=== PATIENT | female | born 1955 | race Caucasian/White ===

== ENCOUNTER 2020-02-03 13:28 | Outpatient (CLI) | payer OTHER, SELFPAY ==
--- NOTE | ~2020-02-03 | MR_ITS ---
EXAMINATION: MR knee RT wo con DATE: 02/03/2020 14:43 INDICATION: Anterior and medial right knee pain. Derangement of the medial meniscus. TECHNIQUE: Magnetic resonance imaging (MRI) of the right knee was performed without intravenous contr ast. Sequences included coronal PD-weighted FSE, coronal PD-weighted FS FSE, sagittal T2-weighted FS E, sagittal PD-weighted FS FSE and axial PD weighted fat saturated FSE. COMPARISON: None. FINDINGS: Medial compartment: There is a full-thickness parrot beak configuration vertical tear extending from the inner free edge of the body of the medial meniscus directly posterior to the periphery of the medial side of the post erior horn. Approximately 5-6 mm region of blisterlike delamination at the bone chondral interface al dorinda the medial margin of the posterior weightbearing medial femoral condyle. There is partial thickne ss chondral ulceration and fissuring involving up to 50% the cartilage thickness and without degenera tive subchondral changes at the anterior weightbearing medial femoral condyle. Lateral compartment: Lateral meniscus is normal. Articular cartilage is normal. Patellofemoral compartment: Deep chondral fissuring extending a band transversely across the lateral patellar facet. Additional d eep chondral fissuring at the medial patellar facet. Partial-thickness cartilage loss with chondral s urface irregularity along the patellar apical ridge. Trochlear cartilage appears relatively preserved . Ligaments and tendons: Anterior and posterior cruciate ligaments are normal. The medial collateral ligament and fibular phan ateral ligament complex are normal. The extensor mechanism is normal. The visualized medial and later al hamstring tendons as well as the iliotibial band are normal. Fluid: Small knee joint effusion. No loose osteochondral bodies identified. Osseous/other: Normal marrow signal. No fracture or abnormal marrow replacing process. IMPRESSION: 1. Full-thickness parrot beak configuration vertical tear extending anterior to posteriorly at the ju nction of the body and posterior horn of the medial meniscus. 2. Mild osteoarthritis with moderate grade chondromalacia at the medial and patellofemoral compartmen ts. Reviewed, dictated and finalized at location B. IMPRESSION: 1. Full-thickness parrot beak configuration vertical tear extending anterior to posteriorly at the junction of the body and posterior horn of the medial menis cus. 2. Mild osteoarthritis with moderate grade chondromalacia at the medial and pat ellofemoral compartments.
== END 2020-02-03 13:29 | disposition home or self-care (01) ==
PROVIDERS: PCP Internal Medicine; Visit Provider Orthopaedic Surgery
DX: M23.203 Derangement of unspecified medial meniscus due to old tear or injury, right knee (principal); M17.11 Unilateral primary osteoarthritis, right knee
CPT/HCPCS: 73721

== ENCOUNTER 2020-03-01 02:28 | Outpatient (CLI) | payer OTHER, SELFPAY ==
[2020-03-01 18:24] LABS: SARS-CoV-2 RNA PCR Negative
== END 2020-03-01 02:29 | disposition home or self-care (01) ==
LOC: ANHCOVIDDT 02:28
PROVIDERS: PCP Internal Medicine; Visit Provider Orthopaedic Surgery
DX: Z01.812 Encounter for preprocedural laboratory examination (principal); Z20.828 Contact with and (suspected) exposure to other viral communicable diseases
CPT/HCPCS: 87635; C9803; U0003

== ENCOUNTER 2020-03-03 00:41 | Day surgery (SDC) | payer OTHER, SELFPAY ==
[2020-02-18 12:53] VITALS: BMI 24.3
[2020-03-03] VITALS (7 sets, daily range): BP systolic 118–137; BP diastolic 68–80; PULSE 76–95; RESP 10–20; TEMP 36.1–36.4; O2SAT 99–100
[2020-03-03] MEDS: LACTATED RINGERS 1,000 ML 30 ML IV CONT ×2 (06:30→08:15)
[2020-03-03] MEDS: ACETAMINOPHEN 500 MG TABLET 1000 MG PO (06:31)
[2020-03-03] MEDS: KETOROLAC 15 MG/ML VIAL (*BKC) IV PUSH (06:36)
--- NOTE | 2020-03-03 07:10 | WPDANESEPPF ---
Anes - Initial Pre Proc Eval Procedure: Operation Date: 03/03/20 07:30 Proposed Procedures p Arthroscopic Partial Medial Meniscectomy Right Knee, Proceed As Indicated - Zach Freeman MD Date/Time: 03/03/20 07:10 Surgeon: Zach Freeman MD Pre Op Diagnosis: medial meniscal tear right knee Patient Data Age: 64 Gender: F Height: 5 ft 5 in Weight: 65.3 kg Last Vital Signs Temp 36.4 C L 03/03/20 06:33 Pulse 95 03/03/20 06:33 Resp 20 03/03/20 06:33 BP 137/71 03/03/20 06:33 Pulse Ox 100 03/03/20 06:33 Allergies Allergy/AdvReac Type Severity Reaction Status Date / Time Penicillins Allergy Unknown Hives Verified 03/03/20 06:43 Home Medications Medication Instructions Recorded Confirmed Type diazepam 2 mg tablet 2 mg PO TID PRN 01/27/20 02/18/20 History Vitamin D3 1 tablet PO DAILY 02/18/20 03/03/20 History naproxen sodium [Aleve] 220 mg PO DAILY PRN 02/18/20 03/03/20 History turmeric 1 cap PO DAILY 02/18/20 03/03/20 History vitamin B complex 1 tablet PO DAILY 02/18/20 03/03/20 History Patient hx anesthesia problems: none Family hx anesthesia problems: none PMFSH Past Medical History Medical History 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 Surgical History Surgical History (Updated 03/03/20 @ 07:10 by Mario Conti MD) H/O: hysterectomy Family History Family History Sibling Hypertension Malignant neoplasm of prostate Mother Hypertension Family history of arthritis Father Family history of pancreatic cancer Social History Social History Smoking status: Never smoker Spiritual care concerns: No Anes - Eval Final PreProcedure Day of Procedure 03/03/20 07:10 Patient weight: normal Heart: regular rate and rhythm Lungs: clear to auscultation Airway: Mallampati scale class II Neurological: alert and oriented Last oral intake: >/= 8 hours ASA classification: II Emergent: no Anesthetic plan: proceed Anesthesia type and monitoring: general LMA and standard monitoring Informed Consent: The patient's anesthetic plan and its attendant risks and benefits were discussed with the patient/family/POA. Questions were solicited and answers provided to the satisfaction of the patient/family/POA.
--- NOTE | 2020-03-03 07:11 | WPDHPUPDATE1 ---
History and Physical Update Update Date/Time: 03/03/20 07:11 History and Physical has been reviewed, including an updated exam of the patient. There are NO changes in the patient's condition. Risks, benefits, and alternatives have been discussed and questions answered. Patient agrees to proceed with procedure.
[2020-03-03] MEDS: CLINDAMYCIN 900 MG/NS 50 ML 900 MG/50 ML PIGGYBACK 50 MG IVPB (07:23)
[2020-03-03] MEDS: BUPIVACAINE/EPINEPHRINE 0.5% 10 ML VIAL 20 ML INFILTRATE (07:39)
--- NOTE | 2020-03-03 08:14 | PM.PROC ---
Procedure Note - Detailed Date of procedure: 03/03/20 Pre-op diagnosis: medial meniscal tear right knee Medial meniscus tear. Post-op diagnosis: same Procedure performed: Arthroscopic partial medial meniscectomy. Description of procedure: Grade 2/3 chondromalacia medial femur and patella. Grade 2/3 trochlea. Grade 1 medial tibia. ACL and lateral compartment normal. Anesthesia: GETA Surgeon: Zach Freeman MD Estimated blood loss (mL): 5 Complications: None Condition: stable Findings: Brief History: The patient complained of knee pain, swelling and mechanical symptoms despite conservative treatment. MRI confirmed the presence of a meniscus tear. Procedure Details: The patient was identified and the surgical site confirmed and signed in the preoperative holding area. Antibiotics were started per protocol. She was brought to the operative room and transferred to the OR table. A general anesthetic was administered. Supine position with the operative lower extremity position in the leg rocha after placement of a well padded tourniquet. The leg support was lowered and the contralateral limb was supported with a soft bolster. The knee was prepped and draped in the usual sterile fashion. A time-out was performed. The portal sites were marked and infiltrated with 0.5% Marcaine 20 mL. The limb was exsanguinated and the tourniquet inflated to 300 mL Hg. Standard inferolateral and inferomedial portals were established. Inflow was obtained with the saline pump. The camera was introduced. Diagnostic inspection of the joint was accomplished. The meniscus was debrided with the arthroscopic shaver, punches, and radiofrequency probe until stable. The arthroscopic instruments were removed. The tourniquet released and wounds closed with subcutaneous 3-0 Monocryl absorbable suture. Steri strips and a sterile dressing were applied. A light elastic wrap was placed. The patient was extubated and brought to the recovery room in stable condition.
--- NOTE | 2020-03-03 10:03 | SUR.PHASEII ---
1000; PT AWAKE AND ALERT. STATES PAIN MILD AT 2/10. DOES NOT WANT ANY PAIN MEDICINE AT THIS TIME. STATES READY TO GO HOME. MEETS DISCHARGE CRITERIA.
== END 2020-03-03 10:03 | disposition home or self-care (01) ==
PROVIDERS: PCP Internal Medicine; Visit Provider Orthopaedic Surgery
PROC: (CPT 29870; principal; 2020-03-03 07:30)
DX: S83.241A Other tear of medial meniscus, current injury, right knee, initial encounter (principal); X50.0XXA Overexertion from strenuous movement or load, initial encounter; M94.261 Chondromalacia, right knee
CPT/HCPCS: 29881; A9270; J1100; J1885; J2405; J2704; J3010; J7120

== ENCOUNTER 2020-03-27 15:30 | Outpatient (RCR) | payer OTHER, SELFPAY ==
--- NOTE | 2020-03-06 13:36 | PTOPEVAL ---
PHYSICAL THERAPY EVALUATION AND PLAN OF CARE 03-06-2020 Thank you for referring Barrera Marcelino to [facility], s/p R knee medical meniscectomy is scheduled to be seen for therapy? 2 x/week for 3 weeks. If the goals are achieved prior to 3 weeks, she may be discharged. Please review, sign, date and return this plan of care SYMONE. I agree with and certify that the following plan of care is medically necessary. Referring Physician Date Attending Provider: Zach Freeman MD *PT Outpatient Evaluation Document 03/06/20 12:30 LAYLA (Rec: 03/06/20 13:30 LAYLA [id number]) Outpatient Past Medical History Past Medical History Source of Past Medical History Patient,Recalled from Previous Visit, Confirmed with Patient /Family Neurological History Hx Neurological Disorders No Significant History Cardiovascular History Hx Cardiac Disorders No Significant History Respiratory History Hx Respiratory Disorders No Significant History Gastrointestinal History Hx Gastrointestinal Disorders No Significant History Genitourinary History Hx Genitourinary Disorders No Significant History Musculoskeletal History Hx Arthritis Yes: neck;hands stiff; Hx Other Musculoskeletal Disorders Yes: MENISCUS TEAR RT KNEE; L shoulder pain/non surgical Hematological History Hx Hematological Disorders No Significant History Endocrine History Hx Endocrine Disorders No Significant History HEENT History Hx HEENT Disorders No Significant History Integumentary History Hx Skin Disorders No Significant History Reproductive History Hx Abnormal Uterine Bleeding Yes Hx Hysterectomy Yes: 2007 Psychosocial History Hx Psychiatric Disorders No Significant History Pain History Has Past Pain Affected Your Daily Life Yes: RT KNEE Anesthesia History Hx Anesthesia Reactions No Significant History Evaluation Information Problem Diagnosis s/p R knee medial menisectomy Onset 03-03-2020 Subjective Information since surgery, resting, not Query Text:As Reported By Patient/ using assistive device; took Family off dressing last PM, took shower this AM; fron dr josafat portillo set; Prior Level of Function Activity Level (Last 3 Months) 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
--- NOTE | 2020-03-27 16:01 | PTOPEVAL ---
PHYSICAL THERAPY DISCHARGE 03-27-2020 Refer to the clinical summary below. The goals were achieved, therefore Mrs. Marcelino will be discharged from PT at this time. Thank you for referring Barrera Marcelino to [facility].? Please review, sign, date and return this discharge SYMONE. I agree with and certify that the following plan of care is medically necessary. Referring Physician Date Attending Provider: Zach Freeman MD *PT Outpatient Discharge Document 03/27/20 15:32 LAYLA (Rec: 03/27/20 15:55 LAYLA [id number]) Subjective Information Barrera reports: knee is doing Query Text:As Reported By Patient/ great; no longer limp, Family walking about 30 minutes; up and around with home tasks about 2 hours and not hurt, but take it slower than used to; pleased with the therapy, ready to be completed with therapy; doing exercises at home; Pain Assessment Timing of Pain Assessment Timing of Pain Assessment Assessment Pain Scale Pain Scale Used Numeric (1 - 10) Self Report Pain Assessment Right Knee(s) Reported Pain Level 0 Pain Description Soreness Pain Frequency Acute Lowest Pain Intensity 0 Greatest Pain Intensity 1 Pain Score Pain Score 0: Self Report Interventions Used Interventions Used By Clinicians Exercise Other Alleviating Interventions have not been using ice or taking any pain meds; reinforce ice PRN w/activity Lower Extremity Range of Motion General Lower Extremity Range of Motion Gross Lower Extremity Range of Motion sitting active R knee ROM 0- Comments 120',without pain increase Lower Extremity Muscle Strength Testing General Lower Extremity Strength Gross Lower Extremity Strength with 3# ankle wt: R LE: SLR x 28 reps; side lying hip abduction x 23 reps and hip adduction x 20 reps; prone knee flexion x 20 reps; single leg standing x 30 seconds with good stability; Extremity Circumference Assessment Circumference Assessment Location Right Body Part Knee Circumference Comments superior to patella 38 cm/ mid patella 36 cm/ inferior to patella 33 cm; Gait Assessment Gait Assessment Ambulation Assistive Devices None Ambulation Distance 150 Query Text:(Feet) Ambulation Pravin
== END 2020-03-28 10:35 | disposition home or self-care (01) ==
LOC: ANHPT 15:30
PROVIDERS: PCP Internal Medicine; Visit Provider Orthopaedic Surgery
DX: Z48.89 Encounter for other specified surgical aftercare (principal); M23.203 Derangement of unspecified medial meniscus due to old tear or injury, right knee
CPT/HCPCS: 97110; 97161

== ENCOUNTER 2020-04-20 06:44 | Outpatient (CLI) | payer OTHER, SELFPAY ==
[2020-04-20 07:27] LABS: Basophils Absolute Auto 0.1 K/mm3 (0.0-0.1); Eosinophils Absolute Auto 0.1 K/mm3 (0-0.3); Eosinophils Percent Auto 2.2 % (0-4.4); Hematocrit 42.8 % (37.0-47.0); Immature Granulocyte Absolute 0.02 K/mm3 (0.00-0.031); Immature Granulocyte Percent A 0.4 % (0-0.5); Lymphocytes Percent Auto 31.9 % (18.3-44.2); Mean Corpuscular HGB Conc 32.7 g/dl (32-36); Mean Corpuscular Hemoglobin 29.8 pg (26-34); Mean Corpuscular Volume 91.1 fl (80-100); Mean Platelet Volume 8.7 fl (7.4-10.4); Monocytes Absolute Auto 0.3 K/mm3 (0.1-0.6); Monocytes Percent Auto 6.6 % (2.6-8.5); Neutrophils Absolute Auto 2.9 K/mm3 (1.3-6.7); Neutrophils Percent Auto 57.9 % (45.5-73.1); Platelet Count Result 291 k/mm3 (150-375); Red Cell Distribution Width 12.2 % (11.5-14.5)
[2020-04-20 07:39] LABS: Alanine Aminotransferase 47 U/L (4-35); Albumin Level 4.4 g/dL (3.5-5.1); Alkaline Phosphatase 100 U/L (38-126); Anion Gap 6 mmol/L (8-16); Aspartate Amino Transferase 45 U/L (14-36); Bilirubin,Total 0.5 mg/dL (0.2-1.3); Blood Urea Nitrogen 16 mg/dL (7-17); Calcium 9.4 mg/dL (8.4-10.2); Carbon Dioxide 33 mmol/L (22-30); Chloride 102 mmol/L (98-107); Cholesterol 218 mg/dL (0-200); Estimated Glomerular Filt Rate > 60; Glucose 106 mg/dL (65-105); HDL Direct 85 mg/dL; Potassium 4.4 mmol/L (3.4-5.0); Sodium 141 mmol/L (137-145); Triglycerides 52 mg/dL (<150)
[2020-04-20 07:41] LABS: Add Urine Microscopic? YES; Appearance Urine Clear (Clear); Bacteria Urine Trace /hpf; Bilirubin Urine Negative (Negative); Blood Urine Negative (Negative); Color Urine Straw (Yellow); Glucose Urine UA Negative (Negative); Ketones Urine Negative (Negative); Leukocyte Esterase Ur Trace LEU/UL (NEGATIVE); Mucus Urine Rare /lpf; Nitrate Urine Negative (Negative); Protein Urine Negative (Negative); RBC Urine 0-2 /hpf (0-2); Specific Grav Ur 1.011 (1.001-1.035); Squamous Epithelial Cell Urine Rare /hpf (Few); Urobilinogen Urine Negative mg/dL (<2.0); WBC Urine 0-3 /hpf (0-3)
[2020-04-20 07:49] LABS: LDL Cholesterol Direct 100 mg/dL
== END 2020-04-20 06:45 | disposition home or self-care (01) ==
LOC: ANHLAB 06:47
PROVIDERS: PCP Internal Medicine; Visit Provider Internal Medicine
DX: Z00.00 Encounter for general adult medical examination without abnormal findings (principal)
CPT/HCPCS: 36415; 80053; 80061; 81001; 85025

== ENCOUNTER 2020-05-12 09:02 | Outpatient (CLI) | payer OTHER, SELFPAY ==
[2020-05-12 10:17] LABS: Free T4 Free Thyroxine 0.93 ng/mL (0.78-2.19)
== END 2020-05-12 09:03 | disposition home or self-care (01) ==
PROVIDERS: PCP Internal Medicine; Visit Provider Internal Medicine
DX: R74.8 Abnormal levels of other serum enzymes (principal); I49.9 Cardiac arrhythmia, unspecified
CPT/HCPCS: 36415; 84439; 84443

== ENCOUNTER 2020-05-18 07:48 | Outpatient (CLI) | payer OTHER, SELFPAY ==
--- NOTE | ~2020-05-18 | US_ITS ---
EXAMINATION: US right upper quadrant DATE: 05/18/2020 08:20 INDICATION: Abnormal liver function tests. TECHNIQUE: Multiple grayscale and Doppler ultrasound images of the abdomen were obtained. COMPARISON: CT abdomen and pelvis 04/10/2015 FINDINGS: The visualized portions of the head, body, and tail of the pancreas are normal. The liver i s normal without focal lesion. There is normal flow in main portal vein. The gallbladder is normal in size. No gallstones or gallbladder wall thickening. There was no sonographic Del Toro sign. The common duct is normal and measures 3 mm. IMPRESSION: 1. Normal right upper quadrant ultrasound. Reviewed, dictated and finalized at location A. AL RETARDATION AIDE
== END 2020-05-18 07:49 | disposition home or self-care (01) ==
PROVIDERS: PCP Internal Medicine; Visit Provider Internal Medicine
DX: R74.8 Abnormal levels of other serum enzymes (principal)
CPT/HCPCS: 76705

== ENCOUNTER 2021-05-03 12:30 | Outpatient (RCR) | payer OTHER, SELFPAY ==
--- NOTE | 2021-03-29 09:27 | PTOPEVAL ---
PHYSICAL THERAPY EVALUATION AND PLAN OF CARE 03-29-21 Thank you for referring Barrera Marcelino to [facility] for the diagnosis of R shoulder arthritis. She is scheduled to be seen for therapy? 1-2 x/week for 5 weeks. Please review, sign, date and return this plan of care SYMONE. I agree with and certify that the following plan of care is medically necessary. Referring Physician Date Attending Provider: Zach Freeman MD PT Outpatient Evaluation Document 03/29/21 08:30 LAYLA (Rec: 03/29/21 09:22 LAYLA [id number]) Source of Past Medical History Recalled from Previous Visit, Confirmed with Patient/Family Neurological History Hx Neurological Disorders No Significant History Cardiovascular History Hx Cardiac Disorders No Significant History Respiratory History Hx Respiratory Disorders No Significant History Gastrointestinal History Hx Gastrointestinal Disorders No Significant History Genitourinary History Hx Genitourinary Disorders No Significant History Musculoskeletal History Hx Arthritis Yes: neck;hands stiff; Hx Orthopedic Surgery Yes: R knee arthroscopy Hx Other Musculoskeletal Disorders Yes: MENISCUS TEAR RT KNEE; L shoulder pain/non surgical Hematological History Hx Hematological Disorders No Significant History Endocrine History Hx Endocrine Disorders No Significant History HEENT History Hx HEENT Disorders No Significant History Integumentary History Hx Skin Disorders No Significant History Reproductive History Hx Abnormal Uterine Bleeding Yes Psychosocial History Hx Psychiatric Disorders No Significant History Anesthesia History Hx Anesthesia Reactions No Significant History Evaluation Information Problem Diagnosis R shoulder OA Onset December 2020 Subjective Information gradual increase in shoulder Query Text:As Reported By Patient/ pain, to where issues sleeping Family through night and could not lie on R shoulder; In November, did alot of painting Diagnostic Tests X-Rays For This Problem Yes: OA of shoulder Previous Treatments Previous Treatments For This Problem not for R shoulder Prior Level of Function Activity Level (Last 3 Months) 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
--- NOTE | 2021-05-03 13:07 | PTOPEVAL ---
PHYSICAL THERAPY DISCHARGE 05-03-21 Refer to the clinical summary below, for her status today, compared to the initial evaluation. Discharge PT services. The goals were partially achieved. Thank you for referring Barrera Marcelino to [facility].? Please review, sign, date and return this Discharge report SYMONE. I agree with and certify that the following plan of care is medically necessary. Referring Physician Date Attending Provider: Zach Freeman MD Document 05/03/21 12:30 LAYLA (Rec: 05/03/21 13:07 LAYLA [id number]) Assessment Status Discharge Subjective Information Barrera reports: shoulder is Query Text:As Reported By Patient/ better, sleeping better; can Family lie on her R side about 10 minutes; doing exercises ok for shoulder; at work yesterday, shoulder did not bother me until the end of the day; Pain Assessment Timing of Pain Assessment Timing of Pain Assessment Assessment Pain Scale Pain Scale Used Numeric (1 - 10) Self Report Pain Assessment Right Shoulder(s) Reported Pain Level 1 Pain Description Aching Radicular Pain Location anterior shoulder ache Pain Frequency Chronic,Intermittent Other Pain Description catches in shoulder when move arm- lift up and then when lower arm down Lowest Pain Intensity 0 Greatest Pain Intensity 5 Pain Aggravating Factors Exercise/Activity Other Pain Aggravating Factors can lie on R side about 10 min ; with sleeping awaken 0-2x/ night Pain Behaviors None Pain Score Pain Score 1: Self Report Additional Pain Score Comments sometimes wake up from sleeping with pain down arm into R hand, kind of like a throb; Interventions Used Interventions Used By Clinicians Education Pain Relief Interventions Used By Inactivity/Rest,Medication Patient Other Alleviating Interventions sometimes take tylenol at night for sleeping; Upper Extremity Range of Motion General Upper Extremity Range of Motion Gross Upper Extremity Range of Motion with active R shoulder ROM: Comments reports stretching and pulling with end range of flexion and IR, but no pain Upper Extremity Muscle Strength Testing General Upper Extremity Strength Gross Upper Extremity Strength Comments functional strength testing: R shoulder: flexion 4# hand
== END 2021-06-12 08:50 | disposition home or self-care (01) ==
LOC: ANHPT 12:30
PROVIDERS: PCP Internal Medicine; Visit Provider Orthopaedic Surgery
DX: M19.011 Primary osteoarthritis, right shoulder (principal)
CPT/HCPCS: 97014; 97110; 97140; 97161; G0283

== ENCOUNTER 2021-05-04 07:14 | Outpatient (CLI) | payer OTHER, SELFPAY ==
[2021-05-04 07:51] LABS: Basophils Percent Auto 0.9 % (0.2-1.2); Eosinophils Absolute Auto 0.1 K/mm3 (0-0.3); Eosinophils Percent Auto 1.7 % (0-4.4); Hematocrit 41.6 % (37.0-47.0); Hemoglobin 13.8 g/dL (12.0-15.0); Immature Granulocyte Absolute 0.02 K/mm3 (0.00-0.031); Immature Granulocyte Percent A 0.4 % (0-0.5); Lymphocytes Absolute Auto 1.52 K/mm3 (0.9-3.2); Lymphocytes Percent Auto 32.5 % (18.3-44.2); Mean Corpuscular HGB Conc 33.2 g/dl (32-36); Mean Corpuscular Hemoglobin 31.1 pg (26-34); Mean Corpuscular Volume 93.7 fl (80-100); Mean Platelet Volume 8.9 fl (7.4-10.4); Monocytes Absolute Auto 0.4 K/mm3 (0.1-0.6); Monocytes Percent Auto 7.9 % (2.6-8.5); Neutrophils Absolute Auto 2.7 K/mm3 (1.3-6.7); Neutrophils Percent Auto 56.6 % (45.5-73.1); Platelet Count Result 226 k/mm3 (150-375); Red Blood Count 4.44 M/mm3 (4.2-5.4); Red Cell Distribution Width 12.2 % (11.5-14.5); White Blood Count 4.7 K/mm3 (4.5-10.0)
[2021-05-04 08:14] LABS: LDL Cholesterol Direct 103 mg/dL
[2021-05-04 08:15] LABS: Alanine Aminotransferase 36 U/L (4-35); Albumin Level 4.6 g/dL (3.5-5.1); Alkaline Phosphatase 95 U/L (38-126); Anion Gap 9 mmol/L (8-16); Aspartate Amino Transferase 33 U/L (14-36); Bilirubin,Total 0.4 mg/dL (0.2-1.3); Blood Urea Nitrogen 19 mg/dL (7-17); Calcium 9.5 mg/dL (8.4-10.2); Carbon Dioxide 26 mmol/L (22-30); Chloride 101 mmol/L (98-107); Cholesterol 225 mg/dL (0-200); Estimated Glomerular Filt Rate > 60; Glucose 102 mg/dL (65-110); HDL Direct 83 mg/dL; Potassium 4.3 mmol/L (3.4-5.0); Sodium 136 mmol/L (137-145); Triglycerides 55 mg/dL (<150)
[2021-05-04 08:26] LABS: Add Urine Microscopic? NO; Appearance Urine Clear (Clear); Bilirubin Urine Negative (Negative); Blood Urine Negative (Negative); Color Urine Yellow (Yellow); Glucose Urine UA Negative (Negative); Ketones Urine Negative (Negative); Leukocyte Esterase Ur Negative LEU/UL (Negative); Nitrate Urine Negative (Negative); Protein Urine Negative (Negative); Specific Grav Ur 1.017 (1.001-1.035); Urobilinogen Urine Negative mg/dL (<2.0)
[2021-05-04 10:41] LABS: Vitamin D 25 Hydroxy 84.8 ng/mL
== END 2021-05-04 07:15 | disposition home or self-care (01) ==
LOC: ANHLAB 07:17
PROVIDERS: PCP Internal Medicine; Visit Provider Internal Medicine
DX: Z00.00 Encounter for general adult medical examination without abnormal findings (principal)
CPT/HCPCS: 36415; 80053; 80061; 81003; 82306; 84443; 85025

== ENCOUNTER 2022-05-07 06:57 | Outpatient (CLI) | payer OTHER, SELFPAY ==
[2022-05-07 07:21] LABS: Basophils Absolute Auto 0.1 K/mm3 (0.0-0.1); Basophils Percent Auto 0.9 % (0.2-1.2); Eosinophils Absolute Auto 0.1 K/mm3 (0-0.3); Eosinophils Percent Auto 1.1 % (0-4.4); Hematocrit 39.6 % (37.0-47.0); Hemoglobin 13.5 g/dL (12.0-15.0); Immature Granulocyte Absolute 0.01 K/mm3 (0.00-0.031); Immature Granulocyte Percent A 0.2 % (0-0.5); Lymphocytes Absolute Auto 1.58 K/mm3 (0.9-3.2); Lymphocytes Percent Auto 28.7 % (18.3-44.2); Mean Corpuscular HGB Conc 34.1 g/dl (32-36); Mean Corpuscular Volume 90.8 fl (80-100); Mean Platelet Volume 8.7 fl (7.4-10.4); Monocytes Absolute Auto 0.3 K/mm3 (0.1-0.6); Monocytes Percent Auto 5.3 % (2.6-8.5); Neutrophils Absolute Auto 3.5 K/mm3 (1.3-6.7); Neutrophils Percent Auto 63.8 % (45.5-73.1); Platelet Count Result 259 k/mm3 (150-375); Red Blood Count 4.36 M/mm3 (4.2-5.4); Red Cell Distribution Width 11.9 % (11.5-14.5); White Blood Count 5.5 K/mm3 (4.5-10.0)
[2022-05-07 07:32] LABS: Alanine Aminotransferase 32 U/L (6-35); Albumin Level 4.6 g/dL (3.5-5.1); Alkaline Phosphatase 84 U/L (38-126); Anion Gap 7 mmol/L (8-16); Aspartate Amino Transferase 39 U/L (14-36); Bilirubin,Total 0.4 mg/dL (0.2-1.3); Blood Urea Nitrogen 16 mg/dL (7-17); Calcium 9.4 mg/dL (8.4-10.2); Carbon Dioxide 29 mmol/L (22-30); Chloride 102 mmol/L (98-107); Cholesterol 218 mg/dL (0-200); Estimated Glomerular Filt Rate > 60; Glucose 103 mg/dL (65-110); HDL Direct 72 mg/dL; Potassium 4.5 mmol/L (3.4-5.0); Sodium 138 mmol/L (137-145); Triglycerides 68 mg/dL (<150)
[2022-05-07 07:37] LABS: Hemoglobin A1C 5.3 % (<5.7)
[2022-05-07 07:43] LABS: LDL Cholesterol Direct 95 mg/dL
[2022-05-07 08:20] LABS: HIV 1/2 Ab P24 Ag Result Negative (Negative); Hepatitis C Virus Antibody Negative (Negative)
== END 2022-05-07 06:58 | disposition home or self-care (01) ==
DX: Z00.00 Encounter for general adult medical examination without abnormal findings (principal); E78.2 Mixed hyperlipidemia; Z11.59 Encounter for screening for other viral diseases; Z11.4 Encounter for screening for human immunodeficiency virus [HIV]
CPT/HCPCS: 36415; 80053; 80061; 83036; 84443; 85025; 86703; 86803; G0432

== ENCOUNTER 2022-09-24 14:30 | Outpatient (RCR) | payer MEDICARE, SELFPAY ==
--- NOTE | 2022-08-26 09:54 | PTOPEVAL1 ---
Assessment and note entered by Analia Merritt, PT Evaluation Information Assessment Status Evaluation Diagnosis Thoracic, back pain Onset May 2022 Subjective Information no trauma or injury to trunk--had in May, eased then returned; x ray--reports degenerative disc disease; Reported Pain Level Pain Score Self Report Additional Pain Score Comments pain range in past week 1- 6/10; L lateral trunk, lower rib, anterior, lateral and posterior; ache- nagging most of time, dull, gripping like pain, sometimes sharp twinge; increase pain with lie on L side, awaken from sleep 1x/night due to pain; decrease pain with heat, muscle arthritis rubs; tylenol, motrin; does not seem to change with position, except lying on her side; Assessment PT Clinical Summary Carolyn Day has the diagnosis of thoracic pain, without an injury or trauma; onset in May. Pain increases with lying on her L side and awakens her from sleep 1x/night. Last week, she had a R breast lumpectomy due to cancer and has an upcoming appt with the dr about radiation and/ or chemo options for treatment. With the evaluation, her trunk and hip ROM in standing and on mat were equal R/L and did not elicit pain, EXCEPT: standing side bend of trunk to L was slightly less than R and with standing trunk rotation to L felt the pain on the L trunk; with palpation, there was tenderness reported in supine, over L lateral-anterior trunk. There are moderate spasms over R and L thoracic paraspinals Skilled PT services are indicated for modalities to decrease pain and spasms, therapeutic exercises to stretch and strengthen her trunk and education for home exercises and posture. Plan of Care Interventions Hot Pack/Cold Pack,Manual Therapy,Neuro Re- education,Patient/Caregiver Education,Therapeutic Activities,Therapeutic Exercise,Other Other Interventions taping, instrument assisted soft tissue massage, cupping PT Services Indicated Yes Treatment Frequency and 2x/wk for 4 weeks Duration These treatments will address the objective and functional deficits as defined above. The patient will be advanced safely and appropriately in order for the patient to progress towards his/her prior level of function. Additional exercises antony
--- NOTE | 2022-09-24 15:03 | PTOPDC ---
Assessment and note entered by Analia Merritt, PT Evaluation Information Assessment Status Evaluation Diagnosis Thoracic, back pain Onset May 2022 Subjective Information Barrera reports: is doing better, can lie on her L side without any problems; am doing the stretches and they help; Reported Pain Level Pain Score Self Report Additional Pain Score Comments pain range in the past week 0-2/10; little ache and sore, decreased with stretching; increase -- cannot identify anything that increases it, maybe from sleeping on her side and when wake up have some pain--? sleep in one position too long or her mattress; Assessment PT Clinical Summary Barrera has received 7 PT sessions. Compared to the initial eval she has improved in all areas: pain rating from 1-6/10 to 0-2/10; reports she can tolerating lying on her L side without pain and is not awakening her from sleeping; standing trunk motions do not cause her any pain; Education completed for home exercises. The goals were achieved. Discharge PT services, and continue with HEP. Plan of Care PT Services Indicated No
== END 2022-09-25 11:49 | disposition home or self-care (01) ==
LOC: ANHPT 14:30
DX: M54.6 Pain in thoracic spine (principal)
CPT/HCPCS: 97110; 97112; 97140; 97161; 97530

== ENCOUNTER 2023-09-25 07:28 | Day surgery (SDC) | payer MEDICARE, SELFPAY ==
[2023-09-05 13:41] VITALS: BMI 24.7
[2023-09-25 08:05] VITALS: BP 132/88; PULSE 92; RESP 20; TEMP 36.9; O2SAT 100; BMI 24.6
[2023-09-25] MEDS: LACTATED RINGERS 1,000 ML 150 ML IV CONT (08:11)
--- NOTE | 2023-09-25 08:31 | PM.HPGS ---
History of Present Illness History of Present Illness Consent: Risks, benefits, and alternatives have been discussed and questions answered. Patient agrees to proceed with procedure. Chief complaint: Personal history of colonic polyps Narrative: Barrera Marcelino is a 68 year old female presents for screening colonoscopy. Vital signs are normal. Patient denies abdominal pain. She has had no bleeding. Previous colonoscopy in 2018 revealed a benign adenoma. Patient returns today for screening exam. Review of Systems Review of Systems: All systems reviewed & are unremarkable except as noted in HPI and below PMFSH Past Medical History Medical History 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 Osteoarthritis of left knee Surgical History Surgical History H/O: hysterectomy Family History Family History Sibling Hypertension Malignant neoplasm of prostate Mother Hypertension Family history of arthritis Father Family history of pancreatic cancer Social History Social History (Updated 05/01/23 @ 14:30 by Ania Norman MA) Smoking status: Never smoker Substance use type: does not use Lack of Transportation: No Lack of Food: Never True Current Housing: I Have Housing Concerned About Future Housing: No Difficulty Paying Gas/Electric Bills: No Difficulty Paying for Meds: No Currently Unemployed: No Education: Associate Degree Difficulty w/ Childcare or Family Care: No Living arrangements: with family Spiritual care concerns: No Meds Home Medications and Allergies Home Medications Medication Instructions Recorded Confirmed Type diazepam 2 mg tablet (Valium) 2 mg PO TID PRN Spasms 01/27/20 09/25/23 History Vitamin D3 1 tablet PO DAILY 02/18/20 09/10/23 History naproxen sodium 220 mg tablet 220 mg PO DAILY PRN Pain 02/18/20 09/25/23 History (Aleve) turmeric 1 cap PO DAILY 02/18/20 09/25/23 History vitamin B complex 1 tablet PO DAILY 02/18/20 09/25/23 History sodium,potassium,mag sulfates 17.5 See Rx Instructions PO .COMPLEX 09/05/23 09/25/23 Rx gram-3.13 gram-1.6 gram oral soln #354 mL (Suprep Bowel Prep Kit) ascorbic acid (vitamin C) 1,000 mg 1 g PO DAILY 09/10/23 09/25/23 History tablet (Vitamin C) calcium 1 tab-cap PO DIRECTED 09/10/23 09/25/23 History krill oil 1 tab-cap PO DIRECTED 09/10/23 09/25/23 History anastrozole 1 mg tablet 1 mg PO DAILY 09/25/23 09/25/23 History Allergies Allergy/AdvReac Type Severity Reaction Status Date / Time Penicillins Allergy Unknown Hives Verified 09/25/23 07:45 Vital Signs Vital Signs - 24 hr 09/25/23 08:05 Temperature 98.4 F Pulse Rate 92 Respiratory Rate 20 Blood Pressure 132/88 Pulse Oximetry 100 Oxygen Delivery Room Air Exam Narrative: Physical exam reveals patient to be alert. Vital signs stable. HEENT exam is unremarkable. Patient is anicteric. Lungs are clear to auscultation and is without murmur or extra sounds. Abdomen bowel sounds are present soft nontender with no organomegaly. Digital external rectal exam is normal. Assessment and Plan Assessment and plan (1) History of colon polyps: Code(s): Z86.010 - Personal history of colonic polyps Status: Acute Assessment and Plan: Is a history of sessile serrated adenoma removed in 2018. Plan for surveillance colonoscopy now and at 5 year intervals.
--- NOTE | 2023-09-25 08:43 | WPDANESEPPF ---
Anes - Initial Pre Proc Eval Procedure: Operation Date: 09/25/23 09:00 Proposed Procedures p Diagnostic Colonoscopy - Joseph Nails MD Date/Time: 09/25/23 08:43 Surgeon: Joseph Nails MD Pre Op Diagnosis: Personal history of colonic polyps Patient Data Age: 68 Gender: F Height: 1.65 m Weight: 67.15 kg Last Vital Signs Temp 36.9 C 09/25/23 08:05 Pulse 92 09/25/23 08:05 Resp 20 09/25/23 08:05 BP 132/88 09/25/23 08:05 Pulse Ox 100 09/25/23 08:05 O2 Del Method Room Air 09/25/23 08:05 Allergies Allergy/AdvReac Type Severity Reaction Status Date / Time Penicillins Allergy Unknown Hives Verified 09/25/23 07:45 Home Medications Medication Instructions Recorded Confirmed Type diazepam 2 mg tablet (Valium) 2 mg PO TID PRN Spasms 01/27/20 09/25/23 History Vitamin D3 1 tablet PO DAILY 02/18/20 09/10/23 History naproxen sodium 220 mg tablet 220 mg PO DAILY PRN Pain 02/18/20 09/25/23 History (Aleve) turmeric 1 cap PO DAILY 02/18/20 09/25/23 History vitamin B complex 1 tablet PO DAILY 02/18/20 09/25/23 History sodium,potassium,mag sulfates 17.5 See Rx Instructions PO .COMPLEX 09/05/23 09/25/23 Rx gram-3.13 gram-1.6 gram oral soln #354 mL (Suprep Bowel Prep Kit) ascorbic acid (vitamin C) 1,000 mg 1 g PO DAILY 09/10/23 09/25/23 History tablet (Vitamin C) calcium 1 tab-cap PO DIRECTED 09/10/23 09/25/23 History krill oil 1 tab-cap PO DIRECTED 09/10/23 09/25/23 History anastrozole 1 mg tablet 1 mg PO DAILY 09/25/23 09/25/23 History Patient hx anesthesia problems: none Family hx anesthesia problems: none Results Review: All pre-operative results and documents have been reviewed as part of the pre-operative evaluation. 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 radiation. remission now Osteoarthritis of left knee Surgical History Surgical History H/O: hysterectomy Family History Family History Sibling Hypertension Malignant neoplasm of prostate Mother Hypertension Family history of arthritis Father Family history of pancreatic cancer Social History Social History (Updated 05/01/23 @ 14:30 by Ania Norman MA) Smoking status: Never smoker Substance use type: does not use Lack of Transportation: No Lack of Food: Never True Current Housing: I Have Housing Concerned About Future Housing: No Difficulty Paying Gas/Electric Bills: No Difficulty Paying for Meds: No Currently Unemployed: No Education: Associate Degree Difficulty w/ Childcare or Family Care: No Living arrangements: with family Spiritual care concerns: No Anes - Eval Final PreProcedure Day of Procedure 09/25/23 08:43 Patient weight: normal Heart: regular rate and rhythm Lungs: clear to auscultation and normal air movement Airway: Mallampati scale class II Neurological: alert and oriented Last oral intake: >/= 8 hours ASA classification: II Emergent: no Anesthetic plan: proceed Anesthesia type and monitoring: general GIVS and standard monitoring Results Review: All pre-operative results and documents have been reviewed as part of the pre-operative evaluation. Informed Consent: The patient's anesthetic plan and its attendant risks and benefits were discussed with the patient/family/POA. Questions were solicited and answers provided to the satisfaction of the patient/family/POA.
[2023-09-25 09:40] VITALS: BP 98/66; PULSE 88; RESP 14; O2SAT 100
[2023-09-25 09:50] VITALS: BP 115/71; PULSE 88; RESP 14; O2SAT 100
[2023-09-25 10:00] VITALS: BP 112/72; PULSE 80; RESP 14; O2SAT 100
--- NOTE | 2023-09-25 11:27 | WPDANESPN ---
Anes - Prog Note Post-Op Date/Time: 09/25/23 11:27 Cardiovascular status: normal Respiratory status: normal Airway patency: baseline Mental status: baseline Post-Op hydration status: normal Vital Signs: Last Vital Signs Temp 36.9 C 09/25/23 08:05 Pulse 80 09/25/23 10:00 Resp 14 09/25/23 10:00 BP 112/72 09/25/23 10:00 Pulse Ox 100 09/25/23 10:00 O2 Del Method Room Air 09/25/23 10:00 Pain Score (VAS): 0 I/O: Intake & Output 09/24/23 09/25/23 09/25/23 23:59 07:59 15:59 Intake Total 500 Balance 500 Post-procedural complaints: none Patient Feedback: Patient satisfied with anesthetic care. Other Findings: Patient vital signs back to baseline. Patient denies nausea and vomiting. Patient's pain under control. Patient OK for discharge.
== END 2023-09-25 10:11 | disposition home or self-care (01) ==
PROVIDERS: PCP Family Medicine; Visit Provider Internal Medicine Gastroenterology
PROC: 0DJD8ZZ Inspection of Lower Intestinal Tract, Via Natural or Artificial Opening Endoscopic (ICD-10-PCS; CPT 45378; principal; 2023-09-25 09:00)
DX: Z86.010 Personal history of colon polyps (principal); K64.8 Other hemorrhoids
CPT/HCPCS: G0105

== ENCOUNTER 2023-10-21 09:39 | Outpatient (CLI) | payer MEDICARE, SELFPAY ==
--- NOTE | ~2023-10-21 | MR_ITS ---
MRI of the left knee Clinical history: Pain Technique: Coronal proton density and proton density-weighted images, sagittal proton-density and T2 fat-sat images, and axial proton-density fat-saturated images were acquired. Findings: Anterior and posterior cruciate ligaments are intact. Medial collateral ligament and the la teral collateral ligament complex are intact. Popliteus tendon is intact. Medial and lateral menisci are intact, without evidence of tear. There is chondral thinning in the medial lateral compartments, especially along the femoral condyles, medial worse than lateral. There is high-grade chondromalacia along the medial patellar facet. There is patchy moderate chondromalacia the femoral trochlea. Small tricompartment osteophytes are present . Extensor mechanism is intact. Minimal joint effusion present. No Robertson's cyst. Impression: Mild tricompartmental degenerative change overall, as detailed above. Reviewed, dictated and finalized at [facility]. Impression: Mild tricompartmental degenerative change overall, as detailed above.
== END 2023-10-21 09:40 | disposition home or self-care (01) ==
PROVIDERS: PCP Family Medicine; Visit Provider Orthopaedic Surgery
DX: M17.12 Unilateral primary osteoarthritis, left knee (principal); M25.562 Pain in left knee
CPT/HCPCS: 73721

== ENCOUNTER → 2024-10-04 11:24 | Outpatient (CLI) | payer MEDICARE, OTHER, SELFPAY ==
--- NOTE | ~2024-10-04 | XR_ITS ---
XR knee LT min 4V Ordering provider: Zach Freeman MD History: . M25.562 - Pain in left knee . Comparison: None. FINDINGS: BONES: No acute fracture or dislocation. JOINT SPACES: Normal. Early marginal osteophytes. SOFT TISSUES: Normal. IMPRESSION: No acute osseous abnormality left knee. Reviewed, dictated and finalized at location A.
--- OUTSIDE RECORDS SUMMARY | 2024-10-04 12:20 | XMS_ITS | Data Portability ---
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 hyst in past. 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 benign no new issues good spirits Not available 07/02/2024 11:30:14 Plan of Treatment Reminders Order Date Submit Date Provider Last Modified By Organization Details Last Modified Time Details Appointments ANNUAL 30 2025 09:00A M Gil Ann MD Not available Not available Not available Lab cytology report, thin prep, smear or scraping , cervical or vaginal 2024 025 [facility], [address], [address], [place], [address], 07/09/2024 16:22:14 cytology report, thin prep, smear or scraping , cervical or vaginal 2020 021 [place], [address], [address], [place], [address], 05/07/2021 11:09:00 fecal occult blood, stool 2019 020 [place] [address] In-Office Order, Internal Use Only DO Not Attach Compendium DO Not Attach Compendium, Do Not Delete/merge, [id number] 04/20/2020 10:18:32 Referral None recorded . Procedures None recorded . Surgeries None recorded . Imaging MAMMO, screenin g, digital, bilatera l 2021 022 [facility], [address] [facility] [place], [address], 05/16/2022 10:20:43 MAMMO, screenin g, digital, bilatera l 2020 021 [email or web address], [address] [facility] [place], [address], 05/21/2021 10:59:22 MAMMO, screenin g, digital, bilatera l 2019 020 [facility] Not available 03/07/2021 10:28:15 Medication Orders Vagifem 10 mcg vaginal tablet 2020 021 [id number], [address], [place], [id number], 05/03/2021 10:32:05 Vagifem 10 mcg vaginal tablet 2019 020 [id number], [address], [place], [id number], 04/20/2020 10:19:01 Patient TargetsNo targets recorded. Patient Instructions Encounter Date Encounter Id Patient Instructions Last Modified By Organization Details Last Modified Time 04/20/2020 [id number] learning about breast cancer screening Not available 04/20/2020 10:18:32 05/03/2021 [id number] learning about breast cancer screening Not available 05/03/2021 10:31:40 05/16/2022 [id number] learning about breast cancer screening Not available 05/16/2022 10:20:37 07/02/2024 [id number] A healthy lifestyle: care instructions Not available 07/02/2024 11:17:31 Reason for Referral None Reported. Results Created Date Observation Date Name Description Value Unit Range Abnormal Flag Note LastModifiedBy Organization Detail LastModifiedTime 04/20/2004/20/2020 fecal occul t blood , stool Occult Blood negati ve Not Available In-Office Order Internal Use Only DO Not Attach Compendium DO Not Attach Compendium, Do Not Delete/merge, [id number] 04/20/2020 09:59:33 05/03/2005/07/2021 IGP, RFX APTIM A HPV ASCU diagnosis: Commen t NEGAT ZOHRA FOR INTRA EPITH ELIAL MINDY N OR ROGER CLEMENT . Not Available [facility] ([facility]) [address] [place], [address], 05/07/2021 11:09:00 05/03/20 21 05/07/2021 IGP, RFX APTIM A HPV ASCU specimen adequacy: Commen t Satis facto ry for evalu ation . No endoc ervic al cells are prese nt. This is consi stent with a histo ry of hyste recto my. Not Available [facility] ([facility]) [address] [place], [address], 05/07/2021 11:09:00 05/03/20 21 05/07/2021 IGP, RFX APTIM A HPV ASCU clinician provided ICD10: Commen t Z01.4 19 Not Available [facility] ([facility]) [address] [facility], [place], [address], 05/07/2021 11:09:00 05/03/20 21 05/07/2021 IGP, RFX APTIM A HPV ASCU performed by: Ethan Viera (ASCP ) Not Available [facility] ([facility]) [address] [facility], [place], [address], 05/07/2021 11:09:00 05/03/20 21 05/07/2021 IGP, RFX APTIM A HPV ASCU . . Not Available [facility] ([facility]) [address] [facility], [place], [address], 05/07/2021 11:09:00 05/03/20 21 05/07/2021 IGP, RFX APTIM A HPV ASCU note: Miguel soares The Pap smear is a scree daniel test desnimisha khalil to aid in the detec tion of zoey ligna nt and malig nant condi tions of the uteri ne cervi x. It is not a diagn ostic proce dure and shoul d not be used as the sole means of detec ting cervi silvano cance r. Both false -posi tive and false -nega tive repor ts do occur . Not Available [facility] ([facility]) [address] [place], [address], 05/07/2021 11:09:00 05/03/20 21 05/07/2021 IGP, RFX APTIM A HPV ASCU test methodology: Miguel soares This liqui d based ThinP rep(R ) pap test was scree simran with the use of an image guide den mendenhall. Not Available [facility] ([facility]) [address] [facility], [place], [address], 05/07/2021 11:09:00 05/03/20 21 05/07/2021 IGP, RFX APTIM A HPV ASCU . Commen t The HPV DNA refle x crite zoraida were not met with this speci men resul t there fore, no HPV testi ng was perfo rmed. Not Available [facility] ([facility]) [address] [place], [address], 05/07/2021 11:09:00 07/02/19 25 07/09/2024 IGP, RFX APTIM A HPV ASCU diagnosis: COMMNATALIIA T NEGAT ZOHRA FOR INTRA EPITH ELIAL LESIO N OR ROGER CLEMENT . REACT ZOHRA CELLU JANE DOYLE ES AND/O R REPAI R ARE PRESE NT. CELLU LAR DOYLE ES ASSOC IATED WITH ATROP HY AND INFLA MMATI ON ARE PRESE NT. Not Available [facility] ([facility]) [address] [facility], [place], [address], 07/09/2024 16:22:14 07/02/19 25 07/09/2024 IGP, RFX APTIM A HPV ASCU specimen adequacy: MIGUEL T Satis facto ry for evalu ation . Endoc ervic al compo nent may not be disti nguis hed in cases of atrop hy. Not Available [facility] ([facility]) [address] [place], [address], 07/09/2024 16:22:14 07/02/19 25 07/09/2024 IGP, RFX APTIM A HPV ASCU clinician provided ICD10: MIGUEL Soares Z01.4 19 Not Available [facility] ([facility]) [address] [place], [address], 07/09/2024 16:22:14 07/02/19 25 07/09/2024 IGP, RFX APTIM A HPV ASCU performed by: MIGUEL varner, Cytot lacie soares (ASCP ) Not Available [facility] ([facility]) [address] [place], [address], 07/09/2024 16:22:14 07/02/19 25 07/09/2024 IGP, RFX APTIM A HPV ASCU electronical ly signed by: MIGUEL Randolph MD, Patho jg t Not Available [facility] ([facility]) [address] [facility], [place], [address], 07/09/2024 16:22:14 07/02/19 25 07/09/2024 IGP, RFX APTIM A HPV ASCU . . Not Available [facility] ([facility]) [address] [facility], [place], [address], 07/09/2024 16:22:14 07/02/19 25 07/09/2024 IGP, RFX APTIM A HPV ASCU note: MIGUEL T The Pap smear is a scree daniel test desig simran to aid in the detec tion of zoey ligna nt and malig nant condi tions of the uteri ne cervi x. It is not a diagn ostic proce dure and shoul d not be used as the sole means of detec ting cervi silvano cance r. Both false -posi tive and false -nega tive repor ts do occur . Not Available [facility] ([facility]) [address] [facility], [place], [address], 07/09/2024 16:22:14 07/02/19 25 07/09/2024 IGP, RFX APTIM A HPV ASCU test methodology: MIGUEL Soares This liqui d based ThinP rep(R ) pap test was scree simran with the use of an image guide d systadore m. Not Available [facility] ([facility]) [address] [place], [address], 07/09/2024 16:22:14 07/02/19 25 07/09/2024 IGP, RFX APTIM A HPV ASCU . MIGUEL T The HPV DNA refle x crite zoraida were not met with this speci men resul t there fore, no HPV testi ng was perfo rmed. Not Available [facility] ([facility]) [address] [facility], [place], [address], 07/09/2024 16:22:14 03/07/20 21 03/07/2021 MAMMO , scree daniel, digit al, bilat eral No observ ation record ed. [facility] [address] [place], [address], 03/07/2021 10:28:51 Result Notes None recorded. Problems Name Problem SNOMED Code Status Onset Date Resolution Date Notes Provider Name and Address Organization Details Recorded Time Menopause present 935016990 Active Gil Ann MD Attn: Ankita canada,[address] [facility], [place], [address], [facility] 6 11:42:58 Problem Notes None recorded. Procedures Surgical History Date Name Laterality Status Provider Name and Address Organization Details Recorded Time 07/02/19 25 Date of Last Pap Smear completed Mikaela Boles RN [facility] 07/09/2024 16:30:59 08/15/19 23 lumpectomy of right breast completed Mikaela Boles RN [facility] 09/30/2022 10:09:18 02/18/20 19 Most Recent Mammogram completed Mikaela Boles RN [facility] 02/18/2019 10:48:54 04/03/20 07 Hysterectomy completed Mikaela Boles RN [facility] 06/28/2014 17:10:52 09/13/19 07 Endometrial Ablation completed Mikaela Boles RN [facility] 06/28/2014 17:10:52 lumpectomy of right breast completed KENYON Warren [facility] 05/20/2023 10:18:16 Imaging Results Imaging Date Name Status LastModified by [facility] Details LastModified Time 03/07/2021 MAMMO, screening, digital, bilateral completed [facility] [address] [place], [address], 03/07/2021 10:28:51 Procedure Notes None recorded. Medical Equipment None Reported. Allergies Allergen ID Allergen Name Allergen Category Reaction Reaction Severity Criticality Documentation Date Start Date Code Code System Note Provider Name and Address Organization Details Recorded Time Product containin g penicilli n (product) medicatio n Not available Not available Not available 06/28/2014 [id number] JAYLIN Boles RN null, [place] - [place] 5 17:10:52 Medications Name Sig Start Date Stop Date Status Note LastModified by Organization Details LastModified Time celecoxib 200 mg capsule active Not Available Not Available Not Available anastrozole 1 mg tablet TAKE 1 TABLET BY MOUTH EVERY DAY active Not Available Not Available No t Available doxycycline hyclate 100 mg capsule 04/20 completed Not Available Not Available Not Available azithromyci n 250 mg tablet TAKE 2 TABLETS BY MOUTH FOR 1 DAY THEN TAKE 1 TABLET BY MOUTH DAILY FOR 4 DAYS 05/20 completed Not Available Not Available Not Available ofloxacin 0.3 % eye drops INSTILL 2 DROPS IN LEFT EYE EVERY 4 HOURS FOR 7 DAYS active Not Available Not Available No t Available alendronate 70 mg tablet PLEASE SEE ATTACHED FOR DETAILED DIRECTION S active Not Available Not Available No t Available acetaminoph en 500 mg tablet TAKE 1 TABLET BY MOUTH EVERY 6 HOURS NEEDED FOR PAIN. active Not Available Not Available No t Available exemestane 25 mg tablet TAKE 1 TABLET (25 MG TOTAL) BY MOUTH DAILY TAKE AFTER A MEAL. active Not Available Not Available No t Available diazepam 2 mg tablet TAKE 1 TABLET BY ORAL ROUTE 3 TIMES A DAY NEEDED BACK SPASM active Not Available Not Available No t Available hydrocodone 7.5 mg-acetamin ophen 325 mg tablet 05/03 completed Not Available Not Available Not Available polymyxin B sulfate 10,000 unit-trimet hoprim 1 mg/mL eye drops ADMINISTE R 1 DROP INTO BOTH EYES EVERY 4 (FOUR) HOURS WHILE AWAKE FOR 7 DAYS active Not Available Not Available No t Available docusate sodium 100 mg capsule TAKE 1 CAPSULE BY MOUTH TWICE A DAY NEEDED FOR CONSTIPAT ION active Not Available Not Available No t Available ibuprofen 600 mg tablet TAKE 1 TABLET BY MOUTH EVERY 6 HOURS NEEDED FOR PAIN active Not Available Not Available No t Available tamoxifen 20 mg tablet TAKE 1 TABLET BY MOUTH EVERY DAY active Not Available Not Available No t Available oxycodone 5 mg tablet TAKE 1 TABLET BY MOUTH EVERY 6 HOURS NEEDED FOR PAIN 05/20 completed Not Available Not Available Not Available sodium,pota ssium,mag sulfates 17.5 gram-3.13 gram-1.6 gram oral soln TAKE DIRECTED PER DR. GUPTA'S WRITTEN INSTRUCTI ONS THAT WERE MAILED TO YOU active Not Available Not Available No t Available Yuvafem 10 mcg vaginal tablet INSERT 1 TABLET VAGINALLY 3 TIMES A WEEK AT BEDTIME active Not Available Not Available No t Available Vitals Date Recorded Body weight Systolic blood pressure Diastolic blood pressure Provider Name and Address Organization Details Last Updated DateTime 04/20/2020 53336.39 g 132 mm[Hg] 70 mm[Hg] KENYON Warren [facility] 04/20/2020 09:57:54 Date Recorded Body weight Systolic blood pressure Diastolic blood pressure Provider Name and Address Organization Details Last Updated DateTime 05/03/2021 82503.03 g 132 mm[Hg] 88 mm[Hg] KENYON Warren [facility] 05/03/2021 10:13:03 Date Recorded Body height Body mass index (BMI) Body weight Systolic blood pressure Diastolic blood pressure Provider Name and Address Organization Details Last Updated DateTime 05/16/2022 163.83 cm 24.2 kg/m2 72229.71 g 122 mm[Hg] 70 mm[Hg] KENYON Warren [facility] 2 10:17:53 Date Recorded Body height Body mass index (BMI) Body weight Systolic blood pressure Diastolic blood pressure Provider Name and Address Organization Details Last Updated DateTime 05/20/2023 163.83 cm 25.2 kg/m2 71721.55 g 130 mm[Hg] 88 mm[Hg] Saritha Adams Mian [facility] 3 10:15:55 Date Recorded Body height Body mass index (BMI) Body weight Systolic blood pressure Diastolic blood pressure Provider Name and Address Organization Details Last Updated DateTime 07/02/2024 163.83 cm 26.2 kg/m2 12041.96 g 133 mm[Hg] 77 mm[Hg] KENYON Warren [facility] 5 11:11:34 Social History Question Answer Notes LastModified by Organizat ion Details LastModified Time Tobacco Smoking Status Never Smoker KENYON Warren [facility] 04/20/2020 09:58:36 How Much Tobacco Do You Chew? None Information not available 04/20/2020 In The 14 Days Before Symptom Onset, Have You Had Close Contact With A Laboratory-confir med COVID-19 While That Case Was Ill? No Information not available 05/03/2021 In The 14 Days Before Symptom Onset, Have You Had Close Contact With A Person Who Is Under Investigation For COVID-19 While That Person Was Ill? No Information not available 05/03/2021 Have You Been To An Area Known To Be High Risk For COVID-19? No Information not available 05/03/2021 What Type Of Diet Are You Following? REGULAR Information not available 04/20/2020 Do You Or Have You Ever Used E-cigarettes Or Vape? Never Used Electronic Cigarettes Information not available 04/20/2020 What Was The Date Of Your Most Recent Tobacco Screening? 07/02/2024 Information not available 07/02/2024 How Many Children Do You Have? 2 Information not available 07/27/2015 What Is Your Relationship Status? Information not available 07/27/2015 Do You Or Have You Ever Used Smokeless Tobacco? Never Used Smokeless Tobacco Information not available 04/20/2020 How Much Tobacco Do You Smoke? No Information not available 04/20/2020 General Stress Level Low Information not available 04/20/2020 Has Tobacco Cessation Counseling Been Provided? No Information not available 05/03/2021 On What Date Was Tobacco Cessation Counseling Provided? 05/03/2021 Information not available 05/03/2021 Do You Or Have You Ever Used Any Other Forms Of Tobacco Or Nicotine? No Information not available 05/03/2021 Sex: Female Functional Status Question Answer Note LastModified by Organization D etails LastModified Time What is your exercise level? None Information not available 04/20/2020 Mental Status None recorded. Family History Nothing Reported. Medical History Condition Response Arthritis Y Breast Cancer Y Gynecological History Statement/Question Response Abnormal Pap N If Post Menopausal, Age at Menopause 52 Menses Monthly N STIs/STDs N Date of Last Pap Smear 07/02/2024 Sexual Problems? N Current Control Method Hysterectom y Most Recent Mammogram 02/17/2019 LMP Definite Obstetrics History GPAL:G 2 P 2 0 0 2 Type Value Full Term 2 Living 2 Total 2 Past Encounters Encounter ID Performer Location Encounter Start Date Encounter Closed Date Diagnosis/Indication Diagnosis SNOMED-CT Code Diagnosis ICD10 Code Diagnosis Note [id number] MD Ashlee Crespo ([place] [address]) [address] [facility] [place] [address] 06/30/2014 10:24:39 06/30/2014 18:42:00 Gynecologic examination 83481849 Menopause present [id number] MD Ashlee Crespo ([place] [address]) [address] [facility] [address] [place] [address] 07/27/2015 10:52:31 07/28/2015 11:32:38 Gynecologic examination 67831550 Z01.419 Menopause present 264612 006 N95.1 Screening for malignant neoplasm of breast 124179072 Z12.39 Screening for malignant neoplasm of colon 392947536 Z12.11 [id number] MD Ashlee Crespo ([place] [address]) [address] [facility] [address] [place] [address] 08/15/2016 14:08:21 08/16/2016 09:43:54 Screening for malignant neoplasm of colon 520571153 Z12.11 Gynecologi c examination 47892895 Z01.419 Screening for malignant neoplasm of breast 215800982 Z12.39 [id number] MD Ashlee Crespo ([place] [address]) [address] [facility] [address] [place] [address] 08/27/2017 09:51:38 08/29/2017 18:42:14 Gynecologic examination 26483251 Z01.419 Body mass index 20-24 - normal 891697011 Z68.23 Screening for malignant neoplasm of colon 760381587 Z12.11 Screening for malignant neoplasm of breast 569217732 Z12.39 [id number] MD Ashlee Crespo [address] [place] [address] 09/03/2018 09:55:43 09/04/2018 09:12:47 Screening for malignant neoplasm of colon 757099729 Z12.11 Gynecologi c examination 50325903 Z01.419 Screening for malignant neoplasm of breast 575821342 Z12.39 Atrophic vaginitis 23705 000 N95.2 [id number] MD Ashlee Crespo 14 [address] [facility] [address] [place] [address] 04/20/2020 09:50:16 04/21/2020 16:06:34 Screening for malignant neoplasm of colon 367414671 Z12.11 Gynecologi c examination 19157634 Z01.419 Screening for malignant neoplasm of breast 713283370 Z12.39 Menopause present 512980 006 N95.1 [id number] MD Ashlee Crespo 14 [address] [facility] [address] [place] [address] 05/03/2021 09:49:08 05/04/2021 09:42:09 Gynecologic examination 40879413 Z01.419 Screening for malignant neoplasm of breast 684703745 Z12.39 Menopause present 786829 006 N95.1 [id number] MD Ashlee Crespo 14 [address] [facility] [address] [place] [address] 05/16/2022 09:51:53 05/17/2022 10:36:54 Gynecologic examination 79311025 Z01.419 Screening for malignant neoplasm of breast 199030826 Z12.39 Menopause present 624851 006 N95.1 [id number] MD Ashlee Crespo 14 OB [address] [facility] [address] [place] [address] 05/20/2023 09:53:25 05/21/2023 09:04:51 Gynecologic examination 46920087 Z01.419 Personal h istory of primary malignant neoplasm of breast 658784480 Z85.3 [id number] MD Ashlee Crespo [address] [facility] [address] [place] [address] 07/02/2024 10:50:55 07/05/2024 11:33:15 Depression screening 524355365 Z13.31 Overweight 560369310 E66 .3 Gynecologi c examination 08237282 Z01.419 Personal h istory of primary malignant neoplasm of breast 862575941 Z85.3 Menopause present 155416 006 N95.1 Health Concerns Section Related Observation LastModified by Organization Detai ls LastModified Time None Recorded Concern Status LastModified by Organization Details LastModified Time None Recorded Advance Directives Directive None Recorded Payers Encounter Date Sequence Insurance Name Policy Number Policy Miller Covered Member ID Miller Member ID Guarantor Name 04/20/2020 1 [facility] [id number] Melann E Chari [id number] Carolyn Barb E Chari 05/03/2021 1 [facility] [id number] Melann E Chari [id number] Carolyn Avitia Chari 05/16/2022 1 [facility] [id number] Melann E Chari [id number] Carolyn Barb E Chari 05/20/2023 1 [place] Melann E Chari [id number] Carolyn Avitia Chari 05/20/2023 2 [employer] (MEDICARE SUPPLEMENT) Carolyn Holguinner [id number] Carolyn Marcelino 07/02/2024 1 [place] Azamn E Chari [id number] Carolyn Marcelino 07/02/2024 2 [employer] (MEDICARE SUPPLEMENT) Carolyn Marcelino [id number] Carolyn Marcelino Notes Date Note Type Note Provider Name and Address Organization Details Recorded Time 04/20/2020 text/html Annual Band Presser Post-MenopausalRep orted bypatient.Menopaus al Symptoms:no menopausal symptoms; normal vaginal lubrication Vaginal Bleeding:history of menopause having occurred; no history of post menopausal bleeding Urinary Symptoms:no hematuria; no incontinence; no nocturia; no urinary frequency Vulva:no genital lesion; no vulvar atrophy Vagina:normal vaginal discharge; no vaginal atrophy Breast:no breast lump; no nipple discharge; no breast pain Sexual Complaints:no sexual complaints Psychological Symptoms:no depression; no anxiety Gil Ann MD Attn: [address] [place], [address], [place] 04/20/2020 10:19:07 05/03/2021 text/html Annual Band Presser Post-MenopausalRep orted bypatient.Menopaus al Symptoms:no menopausal symptoms; normal vaginal lubrication Vaginal Bleeding:history of menopause having occurred; no history of post menopausal bleeding Urinary Symptoms:no hematuria; no incontinence; no nocturia; no urinary frequency Vulva:no genital lesion; no vulvar atrophy Vagina:normal vaginal discharge; no vaginal atrophy Breast:no breast lump; no nipple discharge; no breast pain Sexual Complaints:no sexual complaints Psychological Symptoms:no depression; no anxiety Gil Ann MD Attn: [address]ing[address] [place], [address], [facility] 05/03/2021 10:32:22 05/16/2022 text/html Annual Band Presser Post-MenopausalRep orted bypatient.Menopaus al Symptoms:no menopausal symptoms; normal vaginal lubrication Vaginal Bleeding:history of menopause having occurred; no history of post menopausal bleeding Urinary Symptoms:no hematuria; no incontinence; no nocturia; no urinary frequency Vulva:no genital lesion; no vulvar atrophy Vagina:normal vaginal discharge; no vaginal atrophy Breast:no breast lump; no nipple discharge; no breast pain Sexual Complaints:no sexual complaints Psychological Symptoms:no depression; no anxietyNotes:Hyst in 2006 after failed ablation retiring in Gil Ann MD Attn: Accounting[address] [place], [address], [facility] 05/16/2022 10:30:55 05/20/2023 text/html Annual Band Presser Post-MenopausalRep orted bypatient.Menopaus al Symptoms:no menopausal symptoms; normal vaginal lubrication Vaginal Bleeding:history of menopause having occurred; no history of post menopausal bleeding Urinary Symptoms:no hematuria; no incontinence; no nocturia; no urinary frequency Vulva:no genital lesion; no vulvar atrophy Vagina:normal vaginal discharge; no vaginal atrophy Breast:no breast lump; no nipple discharge; no breast pain Sexual Complaints:no sexual complaints Psychological Symptoms:no depression; no anxietyNotes:Hyst in 2006 after failed ablation Breast cancer lumpectomies -lassic nurse type cisco of failed biopsies / mammograms for her at [facility] Gil Ann MD Attn: Accounting[address] [place], [address] [place] [address] 05/20/2023 10:43:18 07/02/2024 text/html [employer] Post-MenopausalRep orted bypatient.Menopaus al Symptoms:no menopausal symptoms; normal vaginal lubrication Vaginal Bleeding:history of menopause having occurred; no history of post menopausal bleeding Urinary Symptoms:no hematuria; no incontinence; no nocturia; no urinary frequency Vulva:no genital lesion; no vulvar atrophy Vagina:normal vaginal discharge; no vaginal atrophy Breast:no breast lump; no nipple discharge; no breast pain Sexual Complaints:no sexual complaints Psychological Symptoms:no depression; no anxietyNotes:Hyst in 2006 after failed ablation Breast cancer lumpectomies -lassic nurse type saga of failed biopsies / mammograms for her at [facility] all follow ups have been good so far totally retired now Gil Ann MD Attn: Accounting,[address] [place], [id number], [facility] 07/02/2024 11:30:28 OBGyn Episode No OBEpisode recorded.
--- OUTSIDE RECORDS SUMMARY | 2024-10-04 12:20 | XMS_ITS | Referral Summary ---
Author Organization [facility] Building A Address [address] [place] [address] Care Team Providers Care Admin Prog Coord Name Role Phone Ismael Fischer MD Unavailable + [phone] Pascual Talley MD Unavailable [phone] Kirill Huerta MD PhD Unavailable + [phone] Carlos León MD Primary Care Provider [phone] Encounters Date Type Department Care Team Description 08/18/2024 2:00 PM CDT Telemedicine [facility] Virtual [facility] [address] [place] [address] Lanny Savage NP Ear pain, right (Primary Dx) 08/18/2024 Patient Self-Triage [facility] [place] [address] Mychart, Generic Provider from Last 3 Months Allergies Active Allergy Reactions Criticality Noted Date Comments Penicillins Hives Medium Medications cholecalciferol (VITAMIN D-3) 25 mcg (1,000 unit) tabletIndication s:Vitamin D Deficiency Take 1 tablet (1,000 Units total) by mouth line inspector before breakfast Active ascorbic acid (VITAMIN C) 1,000 mg tabletIndication s:Vitamin C Deficiency Take 2 tablets (2,000 mg total) by mouth every morning Active turmeric root extract 500 mg tabletIndication s:supplement Take 500 mg by mouth every morning Active acetaminophen (TYLENOL) 500 mg tablet Take 1 tablet (500 mg total) by mouth every 6 (six) hours as needed for pain 30 tablet 1 3 Active ziawae-lzebsn-uk l dobe-diosmin 1,300 mg capsule Take by mouth Active diazePAM (VALIUM) 2 mg tablet take 1 tablet by oral route tid prn back spasm 90 tablet 4 Active alendronate (FOSAMAX) 70 mg tabletIndication s:Osteopenia of neck of femur, unspecified laterality TAKE 1 TABLET (70 MG TOTAL) BY MOUTH EVERY 7 DAYS TAKE IN THE MORNING WITH A FULL GLASS OF WATER, ON AN EMPTY STOMACH, AND DO NOT TAKE ANYTHING ELSE BY MOUTH OR LIE DOWN FOR THE NEXT 30 MIN. 12 tablet 3 4 02/17/20 25 Active anastrozole (ARIMIDEX) 1 mg tablet Take 1 tablet (1 mg total) by mouth daily 30 tablet 5 5 12/20/19 25 Active Active Problems Problem Noted Date Diagnosed Date Ear pain, right 08/18/2024 Assessment & Plan (08/18/2024 2:15 PM CDT): Ear pain and pressure. RX doxycyline to patient pharmacy. If symptoms worsen or do not improve recommend in person evaluation. Patient verbalized understanding and agreed to plan of care at this time. Sleep disturbance 03/01/2024 Assessment & Plan (03/01/2024 9:32 AM CDT): Intermittent problems with sleep. Typically responds well to melatonin however as of late has been less effective. Discussed gbqi-jqx-vrlceyw medication options and suggested doxylamine (Unisom). And will monitor response. Prediabetes 08/25/2023 Assessment & Plan (08/25/2023 10:10 AM CDT): Last A1c continues on prediabetes and lifesytle changes. Most recent FBS wnl. Congratulate on active, healthy lifesytle. LUQ abdominal pain 10/29/2022 Assessment & Plan (10/29/2022 8:48 AM CDT): Chronic Will get ct abdomen w/o contrast to evaluate Likely MSK Since it radiates from the back will rule out any concern for kidney stone Left-sided thoracic back pain 07/29/2022 Assessment & Plan (03/01/2024 9:33 AM CDT): Pain occurs intermittently. Did not experience improvement with use of Celebrex. CT scan completed 2022, reviewed with patient. Partial response to physical therapy. Did not note improvement with use of Celebrex, states more benefit from ibuprofen. No acute changes. Assessment & Plan (10/29/2022 8:46 AM CDT): Xray of the thoracic spine negative Continue with exercises from PT Since it radiates to the left flank will get CT abdomen w/o contrast all though low suspicion for kidney stone. 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 WORKER): Sent for xrays Likely MSK Sent to physical therapy Low suspicion for kidney stone given no other signs or cva tenderness on exam Can consider if PT doesn't help or xrays dont show much F/u in 2 months Ductal carcinoma in situ (DCIS) of right breast 07/12/2022 Overview (07/12/2022): Added automatically from request for surgery [id number] Malignant neoplasm of upper- outer quadrant of right breast in female, estrogen receptor positive 07/11/2022 Cancer Staging:Pathologic stage from 09/10/2022:Stage 0(pTis (DCIS), cN0, cM0, G2, ER+, ID: Not Assessed, HER2: Not Assessed) - Signed by Kirill Huerta MD PhD on 10/10/2022 Assessment & Plan (03/01/2024 9:24 AM CDT): Continues anastrozole, scheduled for follow-up with Oncology tomorrow. Assessment & Plan (08/25/2023 10:08 AM CDT): Continues f/u with oncology and radiation oncology. S/P XRT, S/P right lumpectomy Continues on anastrazole and will monitor response. Assessment & Plan (06/09/2023 12:29 PM ASBE[employer]OS HAZARD ABATEMENT WORKER): S/p partial mastectomy and radiation treatment Continue following with specialist for management. On Anastrozole Colon cancer screening 05/18/2022 Assessment & Plan (08/25/2023 10:09 AM CDT): History of colonic polyps. Follows with Asim Marrero. Due for 5 year f/u. Referral placed. Assessment & Plan (06/10/2023 8:53 AM [employer]BE[employer] HAZARD ABATEMENT WORKER): Labs reviewed and discussed Pneumonia vaccine given today Colonoscopy referral given today Mammo up to date Pap smear s/p hysterectomy for benign reasons. Still follows with ob F/u in 1 year for annual Assessment & Plan (05/20/2022 8:47 AM [employer]BE[employer] HAZARD ABATEMENT WORKER): Labs done at [place]. Will get records Pneumonia vaccine declined Colonoscopy up to date Mammo up to date Pap smear s/p hysterectomy for benign reasons. Still follows with ob F/u in 1 year for annual Tachycardia 01/14/2022 Palpitations 07/06/2021 Muscle spasms of neck 05/11/2020 Assessment & Plan (03/01/2024 9:32 AM CDT): Infrequent use of diazepam, stable. Will continue to monitor Assessment & Plan (06/10/2023 8:48 AM [employer]BE[employer] HAZARD ABATEMENT WORKER): Stable / clinically quiescent. Will continue to monitor. Continue with valium as needed Assessment & Plan (05/20/2022 8:40 AM [employer]BE[employer] HAZARD ABATEMENT WORKER): Continue with valium as needed Cervical disc disease 04/29/2018 Assessment & Plan (08/25/2023 10:07 AM CDT): Patient with history of paraspinal muscle spasm and irritation. Triggers occipital headache and responds to prn diazepam and will monitor response. No radicular weakness Fibrocystic breast changes 02/01/2016 Resolved Problems Problem Noted Date Diagnosed Date Resolved Date Bacterial conjunctivitis of right eye 12/04/2021 05/20/2022 Assessment & Plan (12/04/2021 11:18 AM CDT): Start oflaxcin 2 drops 4x/day F/u prn or if thing worsen Mixed hyperlipidemia 07/06/2021 024 Assessment & Plan (06/09/2023 12:23 PM [employer]BE[employer] HAZARD ABATEMENT WORKER): Stable / clinically quiescent. Will continue to monitor. Assessment & Plan (05/18/2022 1:09 PM ASBESTOS HAZARD ABATEMENT WORKER): Stable / clinically quiescent. Will continue to monitor. Acute pansinusitis 06/10/2019 0 Assessment & Plan (06/10/2019 10:11 AM [employer]BE[employer] HAZARD ABATEMENT WORKER): Given Hx of penicillin allergy, recommended doxycycline twice daily for 10 days, Flonase, nasal rinses and other nonpharmacologic recommendations today in clinic. S/Es of medication discussed. She was encouraged to follow back up in clinic with persistent or worsening in sx. Other chest pain 05/07/2017 04/29/2018 Hypertension 03/29/2013 04/16/2017 Overview (09/07/2016): HYPERTENSION NOS Immunizations Immunization Administration Dates Next Due HPV, Unspecified 05/07/2021 Influenza, Quadrivalent, Hig h Dose, Preservative Free, Intrr 04/21/2023 Influenza, Quadrivalent, Spl it, Preservative Free, Intradermal 2016 Influenza, Trivalent, High D ose, Split, Preservative Free, Intramuscular 03/01/2024(Deferred: Patient Refused) Influenza, Trivalent, IM (MDV) 03/25/2013,2010 Influenza, Unspecified 03/02/2022,2020,03/27/2020,03/29,03/23/2018,03/25/2017 Pfizer SARS-CoV-2 Monovalent Vaccination (12+ Yrs) PURPLE 03/09/2021,06/12/2020,05/03/2020 Pneumococcal Conjugate Pcv20 06/10/2023 Pneumococcal, Unspecified 07/29/2022(Def erred: Patient Refused),05/20/2022(Deferred: Patient Refused) Tdap 02/22/2017,09/30/2006 Social History Tobacco Use Types Packs/Day Years Used Date Smoking Tobacco: Never Smokeless Tobacco: Never Tobacco Cessation:Counseling Given: Not Answered Alcohol Use Standard Drinks/Week Comments No 0 (1 standard drink = 0.6 oz pur e alcohol) [facility] [employer] Answer Date Recorded In the past 12 months has e [employer], [employer], oil, or water Monitor110 threatened to shut off services in your home? No 08/25/2023 Humiliation, Afraid, Rape, and Kick questionnair e Answer Date Recorded Within the last year, have y ou been afraid of your partner or ex-partner? No 08/25/2023 Within the last year, have y ou been humiliated or emotionally abused in other ways by your partner or ex-partner? No Within the last year, have y ou been kicked, hit, slapped, or otherwise physically hurt by your partner or ex-partner? No 08/25/2023 Within the last year, have y ou been raped or forced to have any kind of sexual activity by your partner or ex-partner? No 08/25/2023 Social Connection and Isolat ion Panel [NHANES] Answer Date Recorded In a typical week, how many times do you talk on the phone with family, friends, or neighbors? Patient unable to answer 08/25/2023 How often do you get togethe r with friends or relatives? Once a week 08/25/2023 How often do you attend [facility] or pentecostalism services? More than 4 times per year 08/25/2023 Do you belong to any clubs o r organizations such as temple groups, unions, fraternal or athletic groups, or school groups? No 08/25/2023 How often do you attend meet ings of the clubs or organizations you belong to? Never 08/25/2023 Are you , , di vorced, , never , or living with a partner? 08/25/2023 AUDIT-C Answer Date Recorded Q1: How often do you have a drink containing alc ohol? Monthly or less 08/25/2023 Q2: How many drinks containi ng alcohol do you have on a typical day when you are drinking? 1 or 2 08/25/2023 Q3: How often do you have si x or more drinks on one occasion? Never 08/25/2023 Overall Financial Resource Strain (CARDIA) Answe r Date Recorded How hard is it for you to pa y for the very basics like food, housing, medical care, and heating? Not hard at all 08/25/2023 PHQ-2 Answer Date Recorded PHQ-2 Total Score (If total score is 3 or more points, staff should administer the PHQ-9) 0 03/01/2024 [facility] - Occupational Stress Questionnaire Answer Date Recorded Do you feel stress - tense, restless, nervous, or anxious, or unable to sleep at night because your mind is troubled all the time - these days? Only a little 08/25/2023 Exercise Vital Sign Answer Date Recorde d On average, how many days pe r week do you engage in moderate to strenuous exercise (like a brisk walk)? 7 days 08/25/2023 On average, how many minutes do you engage in exercise at this level? 20 min 08/25/2023 Hunger Vital Sign Answer Date Recorded Within the past 12 months, y ou worried that your food would run out before you got the money to buy more. Never true 08/25/19 24 Within the past 12 months, t he food you bought just didn't last and you didn't have money to get more. Never true 08/25/2023 PRAPARE - Transportation Answer Date Re corded In the past 12 months, has l ack of transportation kept you from medical appointments or from getting medications? No 08/01 In the past 12 months, has l ack of transportation kept you from meetings, work, or from getting things needed for daily living? No 08/25/2023 Housing Stability Vital Sign Answer Mannie e Recorded In the last 12 months, was t here a time when you were not able to pay the mortgage or rent on time? No 08/25/2023 In the last 12 months, how many places have you lived? 1 08/25/2023 In the last 12 months, was t here a time when you did not have a steady place to sleep or slept in a longterm (including now)? No 08/25/2023 PHQ-9 Answer Date Recorded PHQ-9 Total Score 0 08/25/2023 Personal Safety Answer Date Recorded Have you ever been in or are you currently in a harmful physical or emotional relationship or is someone making you feel afraid or unsafe? Denies 11/12/2022 Comments No Sex and Gender Information Value Date Recorded Sex Assigned at Not on file Legal Sex Female 11:56 PM [employer]BE[employer] HA[employer] ABATEMENT WORKER Gender Identity Female 06/11/2021 7:33 PM [employer]BE[employer] HAZARD ABATEMENT WORKER Sexual Orientation Not on file Last Filed Vital Signs Vital Sign Reading Time Taken Comments Blood Pressure 145/91 06/29/2024 2:34 PM [employer] ABATEMENT WORKER Pulse 102 06/29/2024 2:34 PM [employer] ABATEMENT WORKER Temperature 36.3 C (97.3 F) 06/29/2024 2:34 PM [employer] HAZARD ABATEMENT WORKER Respiratory Rate 20 06/29/2024 2:34 PM [employer] HA[employer]ARD ABATEMENT WORKER Oxygen Saturation 99% 06/29/2024 2:34 PM [employer] HA[employer]ARD ABATEMENT WORKER Inhaled Oxygen Concentration - - Weight 69.8 kg (153 lb 12.8 oz) 06/29/2024 2:34 PM [employer] HA[employer] ABATEMENT WORKER Height 165.7 cm (5' 5.24 ) 06/29/2024 2:34 PM CS T Body Mass Index 25.41 06/29/2024 2:34 PM [employer]ARD ABATEMENT WORKER Plan of Treatment Not on file Medical Devices Implanted Type Area Shirt Line Operator Device Identifier Shelf Expiration Date Model / Serial / Lot [employer] Peripheral [employer] Ghiatas 20ga 15cm 5cm Beaded Needle Breast Wire Localization [id number] - [id number] Implanted:Qty: 1 on 08/20/2022 at [facility] Right: Breast [employer] [id number] / / [employer] Ghiatas 20ga 20cm 7cm Beaded Needle Breast Wire Localization [id number] - [id number] Implanted:Qty: 1 on 08/20/2022 at [facility] Right: Breast [employer] [id number] / / [employer] Ghiatas 20ga 20cm 7cm Beaded Needle Breast Wire Localization [id number] - [id number] Implanted:Qty: 1 on 08/20/2022 at [facility] Right: Breast [employer] [id number] / / Procedures Procedure Name Priority Date/Time Associated Diagnosis Comments DIAGNOSTIC MAMMOGRAM BILATERAL W ADAM Schedule Routine, Read Routine (OP Routine) 05/06/2024 9:48 AM [employer]BE[employer]OS HAZARD ABATEMENT WORKER Follow-up exam, more than 1 year since previous exam Other signs and symptoms in breast COLONOSCOPY Routine 09/25/2023 DEXA AXIAL SKELETON BONE DENSITY 1 OR MORE SITES Schedule Routine, Read Routine (OP Routine) 11/29/2022 7:47 AM CDT Malignant neoplasm of central portion of right breast in female, estrogen receptor positive (HCC) History of ongoing treatment with high-risk medication longterm (current) use of aromatase inhibitors HEPATITIS C ANTIBODY Routine 04/18/2017 from Last 3 Months or Most Recently Relevant to Health Maintenance Results * Diagnostic Mammogram Bilateral W Adam (05/06/2024 9:48 AM [employer]BE[employer] HAZARD ABATEMENT WORKER) Anatomical Region Laterality Modality Breast Bilateral Mammography 05/06/2024 10:2 6 AM [employer] HA[employer] ABATEMENT WORKER Impressions 05/06/2024 12:59 PM [employer] HAZARD ABATEMENT WORKER 1. Stable changes of RIGHT breast conservation therapy. 2. A 0.3 cm epidermal inclusion cyst in the LEFT breast at 10:00, 5 cm from the nipple, corresponds to patient's palpable concern. This is benign. 3. No mammographic evidence of malignancy in EITHER breast. OVERALL FINAL ASSESSMENT: BI-RADS Category 2: Benign. RECOMMENDATION: Annual diagnostic mammography is recommended. Dr. Ruiz discussed the above findings and recommendations with the patient, who expressed her understanding of the management plan. Dictated by: Uma Ruiz M.D. The radiology attending physician has personally reviewed this study, and had reviewed and/or edited this written report and agrees with it. Electronically signed by: Theo Whaley MD Narrative 05/06/2024 12:59 PM [employer]BE[employer] HA[employer]ARD ABATEMENT WORKER EXAMINATION: BILATERAL DIGITAL DIAGNOSTIC MAMMOGRAM INCLUDING CAD AND BILATERAL DIGITAL BREAST TOMOSYNTHESIS; LEFT BREAST SONOGRAM HISTORY: 69-year-old woman with history of RIGHT breast conservation therapy in July 2022 for ductal carcinoma in situ. She presents for annual follow-up. Additionally, patient has a superficial palpable concern in the upper inner LEFT breast. COMPARISON: Prior mammograms, most recently 05/01/2023. TECHNIQUE: Full field digital mammographic views of BOTH breasts were performed, including computer aided detection (CAD) and BILATERAL digital breast tomosynthesis (DBT). Directed ultrasound evaluation of the LEFT breast was performed. BREAST PARENCHYMAL COMPOSITION: The breasts are heterogeneously dense, which may obscure small masses. MAMMOGRAM FINDINGS: Stable postsurgical changes of RIGHT breast conservation therapy. No new suspicious abnormality in the RIGHT breast. In the upper inner LEFT breast, there is minimal skin thickening subjacent to triangular palpable marker. No suspicious mass, architectural distortion or microcalcification in the LEFT breast. SONOGRAM FINDINGS: Targeted sonogram of the upper inner LEFT breast in the area of palpable concern was performed. At 10:00, 5 cm from the nipple, there is a 0.3 x 0.2 x 0.3 cm oval, circumscribed cyst within the skin, with superficial hypoechoic tract to the skin surface. This corresponds to patient's palpable concern. No internal vascularity. Procedure Note Theo Whaley MD - 05/06/2024 EXAMINATION: BILATERAL DIGITAL DIAGNOSTIC MAMMOGRAM INCLUDING CAD AND BILATERAL DIGITAL BREAST TOMOSYNTHESIS; LEFT BREAST SONOGRAM HISTORY: 69-year-old woman with history of RIGHT breast conservation therapy in July 2022 for ductal carcinoma in situ. She presents for annual follow-up. Additionally, patient has a superficial palpable concern in the upper inner LEFT breast. COMPARISON: Prior mammograms, most recently 05/01/2023. TECHNIQUE: Full field digital mammographic views of BOTH breasts were performed, including computer aided detection (CAD) and BILATERAL digital breast tomosynthesis (DBT). Directed ultrasound evaluation of the LEFT breast was performed. BREAST PARENCHYMAL COMPOSITION: The breasts are heterogeneously dense, which may obscure small masses. MAMMOGRAM FINDINGS: Stable postsurgical changes of RIGHT breast conservation therapy. No new suspicious abnormality in the RIGHT breast. In the upper inner LEFT breast, there is minimal skin thickening subjacent to triangular palpable marker. No suspicious mass, architectural distortion or microcalcification in the LEFT breast. SONOGRAM FINDINGS: Targeted sonogram of the upper inner LEFT breast in the area of palpable concern was performed. At 10:00, 5 cm from the nipple, there is a 0.3 x 0.2 x 0.3 cm oval, circumscribed cyst within the skin, with superficial hypoechoic tract to the skin surface. This corresponds to patient's palpable concern. No internal vascularity. IMPRESSION: 1. Stable changes of RIGHT breast conservation therapy. 2. A 0.3 cm epidermal inclusion cyst in the LEFT breast at 10:00, 5 cm from the nipple, corresponds to patient's palpable concern. This is benign. 3. No mammographic evidence of malignancy in EITHER breast. OVERALL FINAL ASSESSMENT: BI-RADS Category 2: Benign. RECOMMENDATION: Annual diagnostic mammography is recommended. Dr. Ruiz discussed the above findings and recommendations with the patient, who expressed her understanding of the management plan. Dictated by: Uma Ruiz M.D. The radiology attending physician has personally reviewed this study, and had reviewed and/or edited this written report and agrees with it. 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 REFERENCE: Bone mineral density: Normal (T-score above or = -1.0) Low bone mass (T-score between -1.0 and -2.5) replaces the previously used term osteopenia Osteoporosis (T-score = or below -2.5) Medical evaluation for secondary causes of low bone mineral density may be appropriate. FRAX is a World Health Organization validated fracture risk assessment tool that calculates a person's 10 year probability of a major osteoporosis related fracture and hip fracture. According to the National Osteoporosis Foundation guidelines, postmenopausal women and men age 50 or older with low bone mass and a 10 year probability of a major osteoporosis related fracture = or greater than 20% or a 10 year probability of a hip fracture = or greater than 3% should be considered for treatment. For further information, including treatment recommendations, please refer to the 2019 ISCD Official Positions (http://www.iscd.org) and the NOF's Clinician's Guide to Prevention and Treatment of Osteoporosis (http://www.nof.org/professionals/clinical-guidelines) THIS IS AN ELECTRONICALLY VERIFIED FINAL REPORT 11/30/2022 11:59 AM - Electronically signed by Antonio Leiva M.D. 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 REFERENCE: Bone mineral density: Normal (T-score above or = -1.0) Low bone mass (T-score between -1.0 and -2.5) replaces thepreviously used term osteopenia Osteoporosis (T-score = or below -2.5) Medical evaluation for secondary causes of low bone mineral density may be appropriate. FRAX is a World Health Organization validated fracture risk assessmenttool that calculates a person's 10 year probability of a major osteoporosisrelated fracture and hip fracture. According to the National OsteoporosisFoundation guidelines, postmenopausal women and men age 50 or older with low bonemass and a 10 year probability of a major osteoporosis related fracture = or greater than 20% or a 10 year probability of a hip fracture = or greaterthan 3% should be considered for treatment. For further information, including treatment recommendations, please referto the 2019 ISCD Official Positions (http://www.iscd.org) and the NOF's Clinician's Guide to Prevention and Treatment of Osteoporosis (http://www.nof.org/professionals/clinical-guidelines) THIS IS AN ELECTRONICALLY VERIFIED FINAL REPORT 11/30/2022 11:59 AM - Electronically signed by Antonio Leiva M.D. MF: PAN Report ID: [id number] Reading Location: [id number] us Crissy Ramirez NP IMG DXA PROCEDURES Final R esult * Hepatitis C antibody (04/18/2017) SCRIBED HCV ab negative EXTERNAL LAB Blood specimen (specimen) Narrative EXTERNAL LAB - 04/18/2017 Results are already scanned in media us Historical Provider LAB MICROBIOLOGY - GENERA L ORDERABLES Final Result EXTERNAL LAB from Last 3 Months or Most Recently Relevant to Health Maintenance Insurance [place] MEDIC[place] [employer] STEFANI RAINES [id number] MEDICARE PHYSICIANS [facility] Care Teams Admin Prog Coord Relationship Specialty Start Date End Date Carlos León MD [address] [place] [address] PCP - General Family Medicine 08/25/23 Ismael Fischer MD [address] [place] [address] DR EAN Olvera [address] [address] Consulting Physician Obstetrics and Gynecology 06/13/22 Pascual Talley MD [address] [place] [address] DR EAN HECK [address] [place] [address] Medical Oncologist/Life Sciences Manager Hematology and Oncology 09/27/22 Kirill Huerta MD PhD [address] [place] [address] [place] [address] Radiation Oncologist Radiation Oncology 10/10/22
--- OUTSIDE RECORDS SUMMARY | 2024-10-04 12:20 | XMS_ITS | Encounter Summary ---
Author Organization [facility] Healthcare Address [address] [place] [address] Care Team Providers Care Adult Basic Education Instructor Name Role Phone Margarita Pedraza MD Primary Care Provide r Ismael Fischer MD Unavailable + [phone] Pascual Talely MD Unavailable [phone] Kirill Huerta MD PhD Unavailable + [phone] Aft, Yazmin Acosta MD PhD Unavailable [phone] Carlos León MD Primary Care Provider [phone] Encounter Details Date Type Department Care Team (Late st Contact Info) Description 11/13/2022 Telephone [facility] [address] [place] [address] Maryann Tenorio, RT Social History Tobacco Use Types Packs/Day Years Used Date Smoking Tobacco: Never Smokeless Tobacco: Never Alcohol Use Standard Drinks/Week Comments No 0 (1 standard drink = 0.6 oz pur e alcohol) AUDIT-C Answer Date Recorded Q1: How often do you have a drink containing alcohol? Monthly or less 09/10/2022 Q2: How many drinks containi ng alcohol do you have on a typical day when you are drinking? Patient does not drink Q3: How often do you have si x or more drinks on one occasion? Never 09/10/2022 PHQ-2 Answer Date Recorded PHQ-2 Total Score (If total score is 3 or more points, staff should administer the PHQ-9) 0 10/29/2022 Personal Safety Answer Date Recorded Have you ever been in or are you currently in a harmful physical or emotional relationship or is someone making you feel afraid or unsafe? Denies 11/12/2022 Comments No Sex and Gender Information Value Date Recorded Sex Assigned at Not on file Legal Sex Female 11:56 PM HVAC OPERATIONS TECHNICIAN Gender Identity Female 06/11/2021 7:33 PM HVAC OPERATIONS TECHNICIAN Sexual Orientation Not on file documented as of this encounter Plan of Treatment Not on file documented as of this encounter Visit Diagnoses Not on filedocumented in this encounter Care Teams Adult Basic Education Instructor Relationship Specialty Start Date End Date Margarita Pedraza MD 2 [facility] [address] [address] PCP - General Family Medicine 11/01/21 08/24/23 Carlos León MD [address] [place] [address] PCP - General Family Medicine 08/25/23 Ismael Fischer MD [address] [place] [address] DR EAN Olvera [address] [address] Consulting Physician Obstetrics and Gynecology 06/13/22 Pascual Talley MD [address] [facility] [address] EAN Olvera [address] [address] Medical Oncologist/Manager Research And Development Hematology and Oncology 09/27/22 Kirill Huerta MD PhD [address] [facility] [address] Radiation Oncologist Radiation Oncology 10/10/22 Yazmin Glez MD PhD [address] [place] [address] Surgeon Surgical Oncology 10/10/22 06/28/24 documented as of this encounter
--- OUTSIDE RECORDS SUMMARY | 2024-10-04 12:20 | XMS_ITS ---
Author Organization [facility] Medical Office Building A Address [address] [place] [address] Care Team Providers Care Target Protection Specialist Name Role Phone Ismael Fischer MD Unavailable + [phone] Pascual Talley MD Unavailable [phone] Kirill Huerta MD PhD Unavailable + [phone] Carlos León MD Primary Care Provider [phone] Active Problems Problem Noted Date Diagnosed Date [...] of late has been less effective. Discussed sosl-plw-fdkackb medication options and suggested doxylamine (Unisom). And [...] prn Assessment & Plan (07/29/2022 10:55 AM PETROLEUM ENGINEER): Sent for xrays Likely MSK Sent to physical therapy Low suspicion for kidney stone given no other signs or cva tenderness on exam Can consider if PT doesn't help or xrays dont show much F/u in 2 months Ductal carcinoma in situ (DCIS) of right breast 07/12/2022 Overview (07/12/2022): Added automatically from request for surgery [id number] Malignant neoplasm of upper- outer quadrant of right breast in female, estrogen receptor positive 07/11/2022 Cancer Staging:Pathologic stage from 09/10/2022:Stage 0(pTis (DCIS), cN0, cM0, G2, ER+, SC: Not Assessed, HER2: Not Assessed) - Signed by Kirill Huerta MD PhD on 10/10/2022 Assessment & Plan (03/01/2024 9:24 AM CDT): Continues anastrozole, scheduled for follow-up with Oncology tomorrow. Assessment & Plan (08/25/2023 10:08 AM CDT): Continues f/u with oncology and radiation oncology. S/P XRT, S/P right lumpectomy Continues on anastrazole and will monitor response. Assessment & Plan (06/09/2023 12:29 PM PETROLEUM ENGINEER): S/p partial mastectomy and radiation treatment Continue following with specialist for management. On Anastrozole Colon cancer screening 05/18/2022 Assessment & Plan (08/25/2023 10:09 AM CDT): History of colonic polyps. Follows with Asim Marrero. Due for 5 year f/u. Referral placed. Assessment & Plan (06/10/2023 8:53 AM PETROLEUM ENGINEER): Labs reviewed and discussed Pneumonia vaccine given today Colonoscopy referral given today Mammo up to date Pap smear s/p hysterectomy for benign reasons. Still follows with ob F/u in 1 year for annual Assessment & Plan (05/20/2022 8:47 AM PETROLEUM ENGINEER): Labs done at [facility]. Will get records Pneumonia vaccine declined Colonoscopy up to date Mammo up to date Pap smear s/p hysterectomy for benign reasons. Still follows with ob F/u in 1 year for annual Tachycardia 01/14/2022 Palpitations 07/06/2021 Muscle spasms of neck 05/11/2020 Assessment & Plan (03/01/2024 9:32 AM CDT): Infrequent use of diazepam, stable. Will continue to monitor Assessment & Plan (06/10/2023 8:48 AM PETROLEUM ENGINEER): Stable / clinically quiescent. Will continue to monitor. Continue with valium as needed Assessment & Plan (05/20/2022 8:40 AM PETROLEUM ENGINEER): Continue with valium as needed Cervical disc disease 04/29/2018 Assessment & Plan (08/25/2023 10:07 AM CDT): Patient with history of paraspinal muscle spasm and irritation. Triggers occipital headache and responds to prn diazepam and will monitor response. No radicular weakness Fibrocystic breast changes 02/01/2016 Current Treatment and Therapy Plans No current plan information found. Past Treatment and Therapy Plans No past plan information found. Radiation Treatments * Course C1 R BREAST 202210/24/2022 - 11/21/2022 Treatment Period Energy Fraction Dose Fractions Total Dose Plans Planned R BRS BST 11/18/2022 - 11/21/2022 250 4 / 1,000 R BRS 10/24/2022 - 11/15/2022 266 16 / 4,256 Reference Points Delivered bst dpv 11/18/2022 - 11/21/2022 1,000 joiner dpv 10/24/2022 - 11/15/2022 4,256 Resolved Problems Problem Noted Date Diagnosed Date Resolved Date Bacterial conjunctivitis of right eye 12/04/2021 05/20/2022 Assessment & Plan (12/04/2021 11:18 AM CDT): Start oflaxcin 2 drops 4x/day F/u prn or if thing worsen Mixed hyperlipidemia 07/06/2021 024 Assessment & Plan (06/09/2023 12:23 PM PETROLEUM ENGINEER): Stable / clinically quiescent. Will continue to monitor. Assessment & Plan (05/18/2022 1:09 PM PETROLEUM ENGINEER): Stable / clinically quiescent. Will continue to monitor. Acute pansinusitis 06/10/2019 0 Assessment & Plan (06/10/2019 10:11 AM PETROLEUM ENGINEER): Given Hx of penicillin allergy, recommended doxycycline twice daily for 10 days, Flonase, nasal rinses and other nonpharmacologic recommendations today in clinic. S/Es of medication discussed. She was encouraged to follow back up in clinic with persistent or worsening in sx. Other chest pain 05/07/2017 04/29/2018 Hypertension 03/29/2013 04/16/2017 Overview (09/07/2016): HYPERTENSION NOS
--- OUTSIDE RECORDS SUMMARY | 2024-10-04 12:20 | XMS_ITS | Clinical Summary ---
Author Organization [facility] Medical Office Building A Address [address] [place] [address] Care Team Providers Care Medical Technologist Clinical Name Role Phone Ismael Fischer MD Unavailable + [phone] Pascual Talley MD Unavailable [phone] Kirill Huerta MD PhD Unavailable [phone] Carlos León MD Primary Care Provider [phone] Allergies Active Allergy Reactions Criticality Noted Date Comments Penicillins Hives Medium Medications cholecalciferol (VITAMIN D-3) 25 mcg (1,000 unit) tabletIndication s:Vitamin D Deficiency Take 1 tablet (1,000 Units total) by mouth commercial producer before breakfast Active ascorbic acid (VITAMIN C) [...] for pain 30 tablet 1 3 Active pnvqjm-scljfk-hu l dobe-diosmin 1,300 mg capsule Take by [...] of late has been less effective. Discussed grpj-yko-qzhxodn medication options and suggested doxylamine (Unisom). And [...] prn Assessment & Plan (07/29/2022 10:55 AM BOILER CONTROL ROOM OPERATOR): Sent for xrays Likely MSK Sent to physical therapy Low suspicion for kidney stone given no other signs or cva tenderness on exam Can consider if PT doesn't help or xrays dont show much F/u in 2 months Ductal carcinoma in situ (DCIS) of right breast 07/12/2022 Overview (07/12/2022): Added automatically from request for surgery [id number] Malignant neoplasm of upper- outer quadrant of right breast in female, estrogen receptor positive 07/11/2022 Cancer Staging:Pathologic stage from 09/10/2022:Stage 0(pTis (DCIS), cN0, cM0, G2, ER+, HI: Not Assessed, HER2: Not Assessed) - Signed by Kirill Huerta MD PhD on 10/10/2022 Assessment & Plan (03/01/2024 9:24 AM CDT): Continues anastrozole, scheduled for follow-up with Oncology tomorrow. Assessment & Plan (08/25/2023 10:08 AM CDT): Continues f/u with oncology and radiation oncology. S/P XRT, S/P right lumpectomy Continues on anastrazole and will monitor response. Assessment & Plan (06/09/2023 12:29 PM BOILER CONTROL ROOM OPERATOR): S/p partial mastectomy and radiation treatment Continue following with specialist for management. On Anastrozole Colon cancer screening 05/18/2022 Assessment & Plan (08/25/2023 10:09 AM CDT): History of colonic polyps. Follows with Asim Marrero. Due for 5 year f/u. Referral placed. Assessment & Plan (06/10/2023 8:53 AM BOILER CONTROL ROOM OPERATOR): Labs reviewed and discussed Pneumonia vaccine given today Colonoscopy referral given today Mammo up to date Pap smear s/p hysterectomy for benign reasons. Still follows with ob F/u in 1 year for annual Assessment & Plan (05/20/2022 8:47 AM BOILER CONTROL ROOM OPERATOR): Labs done at [facility]. Will get records Pneumonia vaccine declined Colonoscopy up to date Mammo up to date Pap smear s/p hysterectomy for benign reasons. Still follows with ob F/u in 1 year for annual Tachycardia 01/14/2022 Palpitations 07/06/2021 Muscle spasms of neck 05/11/2020 Assessment & Plan (03/01/2024 9:32 AM CDT): Infrequent use of diazepam, stable. Will continue to monitor Assessment & Plan (06/10/2023 8:48 AM BOILER CONTROL ROOM OPERATOR): Stable / clinically quiescent. Will continue to monitor. Continue with valium as needed Assessment & Plan (05/20/2022 8:40 AM BOILER CONTROL ROOM OPERATOR): Continue with valium as needed Cervical disc [...] 024 Assessment & Plan (06/09/2023 12:23 PM BOILER CONTROL ROOM OPERATOR): Stable / clinically quiescent. Will continue to monitor. Assessment & Plan (05/18/2022 1:09 PM BOILER CONTROL ROOM OPERATOR): Stable / clinically quiescent. Will continue to monitor. Acute pansinusitis 06/10/2019 0 Assessment & Plan (06/10/2019 10:11 AM BOILER CONTROL ROOM OPERATOR): Given Hx of penicillin allergy, recommended doxycycline twice daily for 10 days, Flonase, nasal rinses and other nonpharmacologic recommendations today in clinic. S/Es of medication discussed. She was encouraged to follow back up in clinic with persistent or worsening in sx. Other chest pain 05/07/2017 04/29/2018 Hypertension 03/29/2013 04/16/2017 Overview (09/07/2016): HYPERTENSION NOS Encounters Date Type Department Care Team Description 08/18/2024 2:[address] [facility] Virtual Care [address] [place] [address] Lanny Savage NP Ear pain, right (Primary Dx) 08/18/2024 Patient Self-Triage [facility] [address] [place] [address] Mychart, Generic Provider from Last 3 Months Immunizations Immunization Administration Dates Next Due HPV, [...] erred: Patient Refused),05/20/2022(Deferred: Patient Refused) Tdap 02/22/2017,09/30/2006 Surgical History Surgery Date Site/Laterality Comments ENDOMETRIAL ABLATION 2006 endometrial ablation TUBAL LIGATION 1984 Bilateral tubal ligation TOTAL ABDOMINAL HYSTERECTOMY W/ BILATERAL SALPINGOOPHORECTOMY 2006 Hysterectomy, total abdominal, BSO BREAST BIOPSY 06/27/2022 Right KNEE ARTHROSCOPY 06/02/2016 - 06/01/2017 Right BREAST LUMPECTOMY 08/20/2022 Right COLONOSCOPY KNEE ARTHROSCOPY W/ LATERAL RELEASE 2016 Medical History Medical History Date Comments Hx Other Medical - Osteoarthritis Osteoarthritis Breast cancer (HCC) Family History Medical History Relation Name Comments Cancer Brother Kendall Hypertension Brother Kendall Prostate cancer Brother Kendall Cancer -pros hobbs; Cancer Father Ede Pancreatic cancer Father Ede Cancer -pa ncreatic; Cancer Maternal Grandmother Lesvia Atrial fibrillation Mother Shilpi Cancer Mother Shilpi Depression Mother Shilpi Heart disease Mother Shilpi Heart failure Mother Shilpi Hypertension Mother Shilpi Miscarriages / Stillbirths Mother Shilpi Other Mother Shilpi Alive and well; Skin cancer Mother Shilpi Cancer Mother's Sister Perlita Cancer Other 1 Family history of Cancer; Diabetes Other 2 Family history of Diabetes mellitus; Heart disease Other 3 Family history of Heart disease; Hypertension Other 4 Family history of Hypertension; Osteoarthritis Other 5 Family histor y of Osteoarthritis; Heart disease Paternal Grandfather Tobi Cancer Paternal Grandmother Annmarie Anesthesia problems Neg Hx Relation Name Status Comments Brother Kendall Father Ede (Age 52) Maternal Grandmother Lesvia Mother Shilpi Alive Mother's Sister Perlita Other 1 Other 2 Other 3 Other 4 Other 5 Paternal Grandfather Tobi Paternal Grandmother Annmarie Social History Tobacco Use Types Packs/Day Years Used Date Smoking Tobacco: Never Smokeless Tobacco: Never Tobacco Cessation:Counseling Given: Not Answered Alcohol Use Standard Drinks/Week Comments No 0 (1 standard drink = 0.6 oz pur e alcohol) [facility] Utilities Answer Date Recorded In the past 12 months has th e [employer], gas, oil, or water [employer] threatened to shut off services in your [...] week 08/25/2023 How often do you attend chur or lutheran services? More than 4 times per year 08/25/2023 Do you belong to any clubs o r organizations such as restorationist groups, unions, fraternal or athletic groups, or [...] staff should administer the PHQ-9) 0 03/01/2024 [facility] - Occupational Stress Questionnaire Answer Date Recorded [...] place to sleep or slept in a fdc (including now)? No 08/25/2023 PHQ-9 Answer Date [...] on file Legal Sex Female 11:56 PM BOILER CONTROL ROOM OPERATOR Gender Identity Female 06/11/2021 7:33 PM BOILER CONTROL ROOM OPERATOR Sexual Orientation Not on file Obstetrics History Last Filed Vital Signs Vital Sign Reading Time Taken Comments Blood Pressure 145/91 06/29/2024 2:34 PM BOILER CONTROL ROOM OPERATOR Pulse 102 06/29/2024 2:34 PM BOILER CONTROL ROOM OPERATOR Temperature 36.3 C (97.3 F) 06/29/2024 2:34 PM BOILER CONTROL ROOM OPERATOR Respiratory Rate 20 06/29/2024 2:34 PM BOILER CONTROL ROOM OPERATOR Oxygen Saturation 99% 06/29/2024 2:34 PM BOILER CONTROL ROOM OPERATOR Inhaled Oxygen Concentration - - Weight 69.8 kg (153 lb 12.8 oz) 06/29/2024 2:34 PM BOILER CONTROL ROOM OPERATOR Height 165.7 cm (5' 5.24 ) 06/29/2024 2:34 PM CS T Body Mass Index 25.41 06/29/2024 2:34 PM BOILER CONTROL ROOM OPERATOR Plan of Treatment Health Maintenance Due Date Last Done Comments Hepatitis B Screening 1973 Zoster Vaccine (1 of 2) 1974 Covid-19 Vaccine (2023-2 5 season) 2024 03/09/2021, 06/12/2020, 05/03/2020 Well Visit 65+ 06/10/2024 06/10/2023, 05/02, 05/17/2021, Additional history exists Osteoporosis Screening-Bone Density Scan 11/29/2024 11/29/2022, 02/13/2017 Influenza Vaccine (Season Ended) 2025 04/21/2023, 03/02/2022, 03/02/2021, Additional history exists Depression Screening 03/01/2025 03/01/2024, 08/25/2023, 08/25/2023, Additional history exists Fall Risk Assessment 03/01/2025 03/01/2024, 08/25/2023, 06/10/2023, Additional history exists Breast Cancer Screening-Mammogram 05/06/2025 05/06/2024, 05/01/2023, 04/18/2022, Additional history exists DTaP/Tdap/Td Vaccine (3 - Td or Tdap) 02/22/2027 02/22/2017, 09/30/2006 Colon Cancer Screening-Colonoscopy 09/24/2028 09/25/2023, 01/29/2018, 01/29/2018, Additional history exists Hepatitis C Screening Completed 04/18/2017 Pneumococcal vaccine 65+ Completed 06/10/2023 Colon Cancer Screening-CT Colonography Discontinued 09/25/2023, 01/29/2018, 01/29/2018, Additional history exists Colon Cancer Screening-DNA Stool Discontinued 09/25/2023, 01/29/2018, 01/29/2018, Additional history exists Colon Cancer Screening-FIT Discontinued 09/24, 01/29/2018, 01/29/2018, Additional history exists Colon Cancer Screening-Sigmoidoscopy Discontinued 09/25/2023, 01/29/2018, 01/29/2018, Additional history exists Medical Devices Implanted Type Area Compressor House Operator Device Identifier Shelf Expiration Date Model / Serial / Lot Bard Peripheral Vascular Ghiatas 20ga 15cm 5cm Beaded Needle Breast Wire Localization [id number] - [id number] Implanted:Qty: 1 on 08/20/2022 at [facility] Right: Breast [employer] [id number] / / [employer]ipheral [employer] Ghiatas 20ga 20cm 7cm Beaded Needle Breast Wire Localization [id number] - [id number] Implanted:Qty: 1 on 08/20/2022 at [facility] Right: Breast [employer] [id number] / / [employer] Peripheral Vascular Ghiatas 20ga 20cm 7cm Beaded Needle Breast Wire Localization [id number] - [id number] Implanted:Qty: 1 on 08/20/2022 at [facility] Right: Breast [employer] [id number] / / Procedures Procedure Name Priority Date/Time Associated Diagnosis Comments DIAGNOSTIC MAMMOGRAM BILATERAL W ADAM Schedule Routine, Read Routine (OP Routine) 05/06/2024 9:48 AM BOILER CONTROL ROOM OPERATOR Follow-up exam, more than 1 year since previous exam Other signs and symptoms in breast COLONOSCOPY Routine 09/25/2023 DEXA AXIAL SKELETON BONE DENSITY 1 OR MORE SITES Schedule Routine, Read Routine (OP Routine) 11/29/2022 7:47 AM CDT Malignant neoplasm of central portion of right breast in female, estrogen receptor positive (HCC) History of ongoing treatment with high-risk medication dental claims processor (current) use of aromatase inhibitors HEPATITIS C ANTIBODY Routine 04/18/2017 from Last 3 Months or Most Recently Relevant to Health Maintenance Results * Diagnostic Mammogram Bilateral W Adam (05/06/2024 9:48 AM BOILER CONTROL ROOM OPERATOR) Anatomical Region Laterality Modality Breast Bilateral Mammography 05/06/2024 10:2 6 AM BOILER CONTROL ROOM OPERATOR Impressions 05/06/2024 12:59 PM BOILER CONTROL ROOM OPERATOR 1. Stable changes of RIGHT breast conservation [...] Theo Whaley MD Narrative 05/06/2024 12:59 PM BOILER CONTROL ROOM OPERATOR EXAMINATION: BILATERAL DIGITAL DIAGNOSTIC MAMMOGRAM INCLUDING CAD [...] Colonoscopy (09/25/2023) Anatomical Region Laterality Modality Other us Historical Provider ENDOSCOPY PROCEDURES Heidy l Result [...] history of: On high risk medications screening Compressor House Operator/Model: Zyngenia (S/N [id number]) CLINICAL INFORMATION: Current height: 65 inches Maximum [...] Antonio Leiva M.D. MF: PAN Report ID: [id number] Reading Location: [place] [address] Procedure Note Antonio Leiva MD - 11/30/2022 EXAM DESCRIPTION: DEXA AXIAL SKELETON BONE DENSITY 1 OR MORE SITES REASON FOR STUDY: 67 y/o year old F with given history of: On highrisk medications screening Compressor House Operator/Model: Crimson Hexagon SL (S/N [id number]) CLINICAL INFORMATION: Current height: 65 inches Maximum [...] Antonio Leiva M.D. MF: PAN Report ID: [id number] Reading Location: [id number] [place] Crissy Ramirez NP IMG DXA PROCEDURES Final R esult * Hepatitis C antibody (04/18/2017) SCRIBED HCV ab negative EXTERNAL LAB Blood specimen (specimen) Narrative EXTERNAL LAB - 04/18/2017 Results are already scanned in media Historical Provider LAB MICROBIOLOGY - GENERA L ORDERABLES Final Result Performing Organization Address City/State/[facility] Co de Phone Number EXTERNAL LAB from Last 3 Months or Most Recently Relevant to Health [place] [address] MEDICARE [facility] Member Subscriber Plan / Payer (Ef fective 2022-Present) Name:Carolyn Marcelino Relation to Subscriber:Self Name:Carolyn Marcelino Payer ID:[id number] Group ID:Not on file Type:COMMERCIAL Address: [facility] [address] [place], [place] PHYSICIANS [employer] Member Subscriber Plan / Payer (Ef fective 2022-) Name:Carolyn Marcelino Relation to Subscriber:Self Name:Carolyn Marcelino Payer ID:[id number] Group ID:Not on file Type:uFaber Address: [facility] [address] [place], [place] [employer]IC[employer] Care Teams Medical Technologist Clinical Relationship Specialty Start Date End Date Carlos León MD [address] [place] [address] PCP - General Family Medicine 08/25/23 Ismael Fischer MD 4 [facility] [address] EAN Olvera [address] [address] Consulting Physician Obstetrics and Gynecology 06/13/22 Pascual Talley MD 4 [facility] [address] EAN Olvera [address] [address] Medical Oncologist/Global Professional Hematology and Oncology 09/27/22 Kirill Huerta MD PhD [address] [facility] [address] Radiation Oncologist Radiation Oncology 10/10/22
== END ==
PROVIDERS: PCP Orthopaedic Surgery; Visit Provider Orthopaedic Surgery
DX: M25.562 Pain in left knee (principal)
CPT/HCPCS: 73564

== ENCOUNTER 2024-12-14 00:30 | Day surgery (SDC) | payer MEDICARE, OTHER, SELFPAY ==
--- NOTE | 2024-12-02 12:58 | PC.NURSE ---
Report to the Outpatient Waiting Room, entrance under the green pavilion located off [facility], at time _8:30 am on date _12/14/24 . Planned Procedure Time: 10:30 am .? Time changes happen often and if your time is changed the preop area will call you the afternoon before. - You and your visitor will be asked to self-screen and do not enter if you have any COVID symptoms. Please call surgeon if you need to reschedule. - A mask is optional within the hospital at this time. Patients may have clear liquids (water, carbonated beverages, clear teas, apple juice) until 3 hours prior to surgery ( 7:30 am) with a maximum of 20 ounces. - No food from midnight until time of surgery and no smoking, or chewing tobacco (or any form of nicotine). No chewing gum, candy or mints. Take only the following medications with a SIP of water on the morning of surgery: NONE DO NOT STOP ANY OF YOUR OTHER PRESCRIPTION MEDICATIONS PRIOR TO SURGERY EXCEPT THE FOLLOWING Hold all vitamins and supplements for 3 days per anesthesiologist.LAST DOSE 12/10/24 Medications to discontinue per physician NONE Please no make-up, nail irish, hairspray, perfume, deodorant, or body powder the day of surgery.? No jewelry (including any body piercings) or valuables the day of surgery, leave them at home.? Please take a shower or bath the night before, or the morning of, surgery with an antibacterial soap.? Wear comfortable, loose fitting clothing.? Children are encouraged to wear pajamas. - Jewelry must be removed prior to entering the operating room.? Rings and piercings that are not removed may be cut off. - The hospital will not accept responsibility for valuables.? - Please leave all valuables, including medications, at home the day of surgery. If you are going home after surgery, a licensed local owner operator truck driver must drive you home.? - NO public transportation without another adult if you receive anesthesia. - We recommend that an adult stay with you for 24 hours following discharge. - We also recommend that you do not drive, make important decision, drink alcoholic beverages, or take any drugs that were not prescribed by your health care provider for at least 24 hours after your discharge time. For Pediatric surgeries, we recommend two adults accompany the child home. Follow any additional instructions given to you from your surgeon. Telephone instructions given to __patient and asked if any additional questions and then verbalized understanding. Patient advised to call surgeon office or pre surgery nurse liaison [phone] if any additional questions.
[2024-12-02 13:10] VITALS: BMI 24.1
[2024-12-14] VITALS (8 sets, daily range): BP systolic 107–129; BP diastolic 59–69; PULSE 66–86; RESP 10–16; TEMP 36.6; O2SAT 98–100
--- OUTSIDE RECORDS SUMMARY | 2024-12-14 00:33 | XMS_ITS ---
Author Organization [facility] Building A Address [address] [place] [address] Care Team Providers Care Hearing Health Technician Name Role Phone Ismael Fischer MD Unavailable + [phone] Pascual Talley MD Unavailable [phone] Kiirll Huerta MD PhD Unavailable + [phone] Carlos León MD Primary Care Provider [phone] Active Problems Problem Noted Date Diagnosed Date Chronic pain of left knee 10/21/2024 Assessment & Plan (10/21/2024 1:00 PM CDT): Working with Dr. Wagner at [facility]. Going for scope on 11/14/24. No contraindications to upcoming procedure. Denies history of complication with anesthesia. Denies COPD/asthma, FRANNY, DVT/PE. Allergic to PCN. Non-smoker. Encounter for annual wellness exam in Medicare p atient 10/21/2024 Assessment & Plan (10/21/2024 1:18 PM CDT): Preventative exam reviewed screenings and vaccinations. -Scheduled for mammogram 05/2025 -due for repeat DEXA next month -Discussed getting shingles vaccine at local pharmacy Ear pain, right 08/18/2024 Assessment & Plan [...] of late has been less effective. Discussed [id number] medication options and suggested doxylamine (Unisom). 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 Continues anastrozole. Malignant neoplasm of upper- outer quadrant of right breast in female, estrogen receptor positive 07/11/2022 Cancer Staging:Pathologic stage from 09/10/2022:Stage 0(pTis (DCIS), cN0, cM0, G2, ER+, NH: Not Assessed, HER2: Not Assessed) - Signed by Kirill Huerta MD PhD on 10/10/2022 Assessment & Plan (03/01/2024 9:24 AM CDT): Continues anastrozole, scheduled for follow-up with Oncology tomorrow. Assessment & Plan (08/25/2023 10:08 AM CDT): Continues f/u with oncology and radiation oncology. S/P XRT, S/P right lumpectomy Continues on anastrazole and will monitor response. Assessment & Plan (06/09/2023 12:29 PM MARKET INTELLIGENCE CONSULTANT): S/p partial mastectomy and radiation treatment Continue following with specialist for management. On Anastrozole Colon cancer screening 05/18/2022 Assessment & Plan (08/25/2023 10:09 AM CDT): History of colonic polyps. Follows with [facility]. Due for 5 year f/u. Referral placed. Assessment & Plan (06/10/2023 8:53 AM MARKET INTELLIGENCE CONSULTANT): Labs reviewed and discussed Pneumonia vaccine given today Colonoscopy referral given today Mammo up to date Pap smear s/p hysterectomy for benign reasons. Still follows with ob F/u in 1 year for annual Assessment & Plan (05/20/2022 8:47 AM MARKET INTELLIGENCE CONSULTANT): Labs done at [facility]. Will get records Pneumonia vaccine declined Colonoscopy up to date Mammo up to date Pap smear s/p hysterectomy for benign reasons. Still follows with ob F/u in 1 year for annual Tachycardia 01/14/2022 Palpitations 07/06/2021 Mixed hyperlipidemia 07/06/2021 Assessment & Plan (10/21/2024 1:19 PM CDT): Reviewed cholesterol patient today. ASCVD risk score low-moderate. No significant family history of heart disease. Will continue to monitor. Patient with overall healthy diet and exercising regularly. Assessment & Plan (06/09/2023 12:23 PM MARKET INTELLIGENCE CONSULTANT): Stable / clinically quiescent. Will continue to monitor. Assessment & Plan (05/18/2022 1:09 PM MARKET INTELLIGENCE CONSULTANT): Stable / clinically quiescent. Will continue to monitor. Muscle spasms of neck 05/11/2020 Assessment & Plan (10/21/2024 1:20 PM CDT): Stable, denies any new or worsening pain. Very infrequent use of diazepam with good response, diazepam last refilled 02/2024. Encouraged gentle stretching and wurti-ap-jluxke exercises. Assessment & Plan (03/01/2024 9:32 AM CDT): Infrequent use of diazepam, stable. Will continue to monitor Assessment & Plan (06/10/2023 8:48 AM MARKET INTELLIGENCE CONSULTANT): Stable / clinically quiescent. Will continue to monitor. Continue with valium as needed Assessment & Plan (05/20/2022 8:40 AM MARKET INTELLIGENCE CONSULTANT): Continue with valium as needed Cervical disc [...] 4x/day F/u prn or if thing worsen Acute pansinusitis 06/10/2019 0 Assessment & Plan (06/10/2019 10:11 AM MARKET INTELLIGENCE CONSULTANT): Given Hx of penicillin allergy, recommended doxycycline twice daily for 10 days, Flonase, nasal rinses and other nonpharmacologic recommendations today in clinic. S/Es of medication discussed. She was encouraged to follow back up in clinic with persistent or worsening in sx. Other chest pain 05/07/2017 04/29/2018 Hypertension 03/29/2013 04/16/2017 Overview (09/07/2016): HYPERTENSION NOS
--- OUTSIDE RECORDS SUMMARY | 2024-12-14 00:33 | XMS_ITS | Referral Summary ---
Author Organization [facility] Medical Office Building A Address [address] [place] [address] Care Team Providers Care Marine Services Technician Name Role Phone Ismael Fischer MD Unavailable + [phone] Pascual Talley MD Unavailable [phone] Kirill Huerta MD PhD Unavailable + [phone] Carlos León MD Primary Care Provider + [phone] Encounters Date Type Department Care Team Description 12/08/2024 8:32 AM CDT - 12/08/2024 11:59 PM CDT Hospital Encounter [facility] [address] [place] [address] Malignant neoplasm of upper-outer quadrant of right breast in female, estrogen receptor positive (HCC); 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 Discharge Disposition: Discharge to home or self care 11/25/2024 10:30 AM CDT Office Visit [facility] [address] [place] [address] Kirill Huerta MD PhD Malignant neoplasm of upper-outer quadrant of right breast in female, estrogen receptor positive (HCC) 10/28/2024 9:45 AM CDT Lab [facility] [address] [facility] [address] [place] [address] Malignant neoplasm of upper-outer quadrant of right breast in female, estrogen receptor positive (HCC) 10/28/2024 10:15 AM CDT Office Visit [facility] [address] [place] [address] Medical Office [facility] [address] [place] [phone] Crissy Ramirez, LOUISE Malignant neoplasm of upper-outer quadrant of right breast in female, estrogen receptor positive (HCC) (Primary Dx); [facility] (current) use of aromatase inhibitors 10/27/2024 Telephone [facility] [address] [place] [address] [address] [place] [phone] Martha Cabrera, JESÚS 10/26/2024 Telephone [facility] [address] [place] [address] Carlos León MD Prior Authorization (Diazepam) 10/21/2024 12:30 PM CDT Office Visit [facility] [address] [address] Joi Cortez NP Encounter for annual wellness exam in Medicare patient (Primary Dx); Mixed hyperlipidemia; Ductal carcinoma in situ (DCIS) of right breast; Muscle spasms of neck; Chronic pain of left knee; BMI 24.0-24.9, adult 10/13/2024 10:50 AM CDT Lab [facility] [address] [place] [address] Mixed hyperlipidemia from Last 3 Months Allergies Active Allergy Reactions Criticality Noted Date Comments Penicillins Hives Medium Medications cholecalciferol (VITAMIN D-3) 25 mcg (1,000 unit) tabletIndication s:Vitamin D Deficiency Take 1 tablet (1,000 Units total) 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 Wagner at [facility]. Going for scope on 11/14/24. No contraindications [...] of late has been less effective. Discussed wvky-int-kbjeytb medication options and suggested doxylamine (Unisom). And [...] prn Assessment & Plan (07/29/2022 10:55 AM BUSINESS DEVELOPER): Sent for xrays Likely MSK Sent to physical therapy Low suspicion for kidney stone given no other signs or cva tenderness on exam Can consider if PT doesn't help or xrays dont show much F/u in 2 months Ductal carcinoma in situ (DCIS) of right breast 07/12/2022 Overview (07/12/2022): Added automatically from request for surgery [id number] Assessment & Plan (10/21/2024 1:18 PM CDT): Following with Oncology. Continues anastrozole. Malignant neoplasm of upper- outer quadrant of right breast in female, estrogen receptor positive 07/11/2022 Cancer Staging:Pathologic stage from 09/10/2022:Stage 0(pTis (DCIS), cN0, cM0, G2, ER+, MD: Not Assessed, HER2: Not Assessed) - Signed by Kirill Huerta MD PhD on 10/10/2022 Assessment & Plan (03/01/2024 9:24 AM CDT): Continues anastrozole, scheduled for follow-up with Oncology tomorrow. Assessment & Plan (08/25/2023 10:08 AM CDT): Continues f/u with oncology and radiation oncology. S/P XRT, S/P right lumpectomy Continues on anastrazole and will monitor response. Assessment & Plan (06/09/2023 12:29 PM BUSINESS DEVELOPER): S/p partial mastectomy and radiation treatment Continue following with specialist for management. On Anastrozole Colon cancer screening 05/18/2022 Assessment & Plan (08/25/2023 10:09 AM CDT): History of colonic polyps. Follows with Asim Marrero. Due for 5 year f/u. Referral placed. Assessment & Plan (06/10/2023 8:53 AM BUSINESS DEVELOPER): Labs reviewed and discussed Pneumonia vaccine given today Colonoscopy referral given today Mammo up to date Pap smear s/p hysterectomy for benign reasons. Still follows with ob F/u in 1 year for annual Assessment & Plan (05/20/2022 8:47 AM BUSINESS DEVELOPER): Labs done at [place]. Will get records Pneumonia vaccine declined Colonoscopy [...] regularly. Assessment & Plan (06/09/2023 12:23 PM BUSINESS DEVELOPER): Stable / clinically quiescent. Will continue to monitor. Assessment & Plan (05/18/2022 1:09 PM BUSINESS DEVELOPER): Stable / clinically quiescent. Will continue to monitor. Muscle spasms of neck 05/11/2020 Assessment & Plan (10/21/2024 1:20 PM CDT): Stable, denies any new or worsening pain. Very infrequent use of diazepam with good response, diazepam last refilled 02/2024. Encouraged gentle stretching and ikwin-ws-qphbmw exercises. Assessment & Plan (03/01/2024 9:32 AM CDT): Infrequent use of diazepam, stable. Will continue to monitor Assessment & Plan (06/10/2023 8:48 AM BUSINESS DEVELOPER): Stable / clinically quiescent. Will continue to monitor. Continue with valium as needed Assessment & Plan (05/20/2022 8:40 AM BUSINESS DEVELOPER): Continue with valium as needed Cervical disc [...] 0 Assessment & Plan (06/10/2019 10:11 AM BUSINESS DEVELOPER): Given Hx of penicillin allergy, recommended doxycycline [...] it, Preservative Free, Intradermal 2016 Influenza, Trivalent, Adjuva nted, Intramuscular 03/02/2024(Deferred: Patient Refused) Influenza, Trivalent, High D ose, Split, Preservative [...] drink = 0.6 oz pur e alcohol) [facility] Utilities Answer Date Recorded In the past 12 months has e [employer], gas, oil, or water [employer] threatened to shut off services in your [...] How often do you attend chur or roman catholic services? More than 4 times per year 08/25/2023 Do you belong to any clubs o r organizations such as uatsdin groups, unions, fraternal or athletic groups, or school groups? No 08/25/2023 How often do you attend meet ings of the clubs or organizations you belong to? Never 08/25/2023 Are you , , di vorced, , never , or living with a partner? 08/25/2023 AUDIT-C Answer Date Recorded Frequency of Alcohol Consumption Not on file 10/28/2024 Q2: How many drinks containi ng alcohol do you have on a typical day when you are drinking? Patient does not drink Frequency of Binge Drinking Not on file 10/01 Overall Financial Resource Strain (CARDIA) Answe r Date Recorded How hard is it for you to pa y for the very basics like food, housing, medical care, and heating? Not hard at all 08/25/2023 PHQ-2 Answer Date Recorded PHQ-2 Total Score (If total score is 3 or more points, staff should administer the PHQ-9) 0 10/21/2024 [facility] Occupat ional Health - Occupational Stress [...] place to sleep or slept in a [facility] (including now)? No 08/25/2023 PHQ-9 Answer Date [...] on file Legal Sex Female 11:56 PM BUSINESS DEVELOPER Gender Identity Female 06/11/2021 7:33 PM BUSINESS DEVELOPER Sexual Orientation Not on file Last Filed Vital Signs Vital Sign Reading Time Taken Comments Blood Pressure 128/79 11/25/2024 10:26 AM CDT Pulse 78 11/25/2024 10:26 AM CDT Temperature 36.4 C (97.6 F) 11/25/2024 10:26 AM CDT Respiratory Rate 18 11/25/2024 10:2 6 AM CDT Oxygen Saturation 98% 11/25/2024 10: 26 AM CDT Inhaled Oxygen Concentration - - Weight 66.1 kg (145 lb 12.8 oz) 025 10:26 AM CDT Height 165.1 cm (5' 5) 10/28/2024 10:1 8 AM CDT Body Mass Index 24.26 10/28/2024 10:18 AM CDT Plan of Treatment Not on file Medical Devices Implanted Type Area Crane Service Technician Device Identifier Shelf Expiration Date Model / Serial / Lot Bard Peripheral Vascular Ghiatas 20ga 15cm 5cm Beaded Needle Breast Wire Localization [id number] - [id number] Implanted:Qty: 1 on 08/20/2022 at [facility] Right: Breast [employer] [id number] / / [employer] Ghiatas 20ga 20cm 7cm Beaded Needle Breast Wire Localization [id number] - [id number] Implanted:Qty: 1 on 08/20/2022 at [facility] Right: Breast [employer] [id number] / / [employer] Ghiatas 20ga 20cm 7cm Beaded Needle Breast Wire Localization [id number] - [id number] Implanted:Qty: 1 on 08/20/2022 at [facility] Right: Breast [employer] [id number] / / Procedures Procedure Name Priority Date/Time Associated Diagnosis Comments DEXA AXIAL SKELETON BONE DENSITY 1 OR MORE SITES Schedule Routine, Read Routine (OP Routine) 12/08/2024 8:43 AM CDT Malignant neoplasm of upper-outer quadrant of right breast in female, estrogen receptor positive (HCC) [facility] (current) use of aromatase inhibitors EGFR Routine 10/28/2024 10:10 AM CDT Malignant neoplasm of upper-outer quadrant of right breast in female, estrogen receptor positive (HCC) DIFFERENTIAL AUTO Routine 10/28/2024 10:10 AM CDT Malignant neoplasm of upper-outer quadrant of right breast in female, estrogen receptor positive (HCC) CBC WITH AUTO DIFFERENTIAL Routine 10/28/2024 10:10 AM CDT Malignant neoplasm of upper-outer quadrant of right breast in female, estrogen receptor positive (HCC) COMPREHENSIVE METABOLIC PANEL Routine 10/28/2024 10:10 AM CDT Malignant neoplasm of upper-outer quadrant of right breast in female, estrogen receptor positive (HCC) EGFR Routine 10/13/2024 10:47 AM CDT Mixed hyperlipidemia DIFFERENTIAL AUTO Routine 10/13/2024 10:47 AM CDT Mixed hyperlipidemia CBC WITH AUTO DIFFERENTIAL Routine 10/13/2024 10:47 AM CDT Mixed hyperlipidemia COMPREHENSIVE METABOLIC PANEL Routine 10/13/2024 10:47 AM CDT Mixed hyperlipidemia LIPID PANEL Routine 10/13/2024 10:47 AM CDT Mixed hyperlipidemia DIAGNOSTIC MAMMOGRAM BILATERAL W ADAM Schedule Routine, Read Routine (OP Routine) 05/06/2024 9:48 AM BUSINESS DEVELOPER Follow-up exam, more than 1 year since previous exam Other signs and symptoms in breast COLONOSCOPY Routine 09/25/2023 HEPATITIS C ANTIBODY Routine 04/18/2017 from Last 3 Months or Most Recently Relevant to Health Maintenance Results * Dexa Axial Skeleton Bone Density 1 or 2 Site (12/08/2024 8:43 AM CDT) Anatomical Region Laterality Modality Body N/A Other 12/08/2024 6:44 PM CDT Narrative 12/08/2024 6:46 PM CDT EXAM DESCRIPTION: DEXA AXIAL SKELETON BONE DENSITY 1 OR MORE SITES REASON FOR STUDY: 69 y/o year old F with given history of: 69 y/o F with given history of: On high risk medications for history of breast cancer Osteoporosis screening Post menopausal 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 CLINICAL INFORMATION: Current height: 65 inches Maximum height: 66 inches Weight: 145 pounds Risk factors: Postmenopausal, cancer COMPARISON: 11/29/2022 FINDINGS: AP LUMBAR SPINE L1-L4: Total BMD is 0.858 g/cm2 T-score is -1.7 This is increased in comparison to prior exam which is statistically significant. LEFT HIP: Total BMD is 0.869 g/cm2 T-score is -0.6 This is increased in comparison to prior exam which is not statistically significant. Femoral neck BMD is 0.656 g/cm2 T-score is -1.7 FRAX: FRAX tool cannot be utilized due to current treatment for osteoporosis. IMPRESSION: 1. Low Bone Mass. REFERENCE: Bone mineral density: T-Score: Normal (T-score above or = -1.0) Low bone mass (T-score between -1.0 and -2.5) replaces the previously used term osteopenia Osteoporosis (T-score = or below -2.5) Z-Score: Within the expected range for age (Z-score above -2.0) Below the expected range for age (Z-score is -2.0 or below) Please see below follow up recommendations. Medical evaluation for secondary causes of low [...] greater than 3% should be considered for pharmacological treatment for the prevention of osteoporosis. For further information, including treatment recommendations, please refer to the 2019 ISCD Official Positions (http://www.iscd.org) and the NOF's Clinician's Guide to Prevention and Treatment of Osteoporosis (http://www.nof.org/professionals/clinical-guidelines) THIS IS AN ELECTRONICALLY VERIFIED FINAL REPORT 12/08/2024 6:46 PM - Electronically signed by Antonio Leiva M.D. MF: PAN Report ID: [id number] Reading Location: [id number] Procedure Note Antonio Leiva MD - 12/08/2024 EXAM DESCRIPTION: DEXA AXIAL SKELETON BONE DENSITY 1 OR MORE SITES REASON FOR STUDY: 69 y/o year old F with given history of: 69 y/o Fwith given history of: On high risk medications for history of breast cancer Osteoporosis screening Post menopausal Crane Service Technician/Model: [employer] SL (S/N [id number]) Facility LSC value of 0.022 for the AP spine, 0.027 for the femur, and0.023 for the forearm. CLINICAL INFORMATION: Current height: 65 inches Maximum height: 66 inches Weight: 145 pounds Risk factors: Postmenopausal, cancer COMPARISON: 11/29/2022 FINDINGS: AP LUMBAR SPINE L1-L4: Total BMD is 0.858 g/cm2 T-score is -1.7 This is increased in comparison to prior exam which is statistically significant. LEFT HIP: Total BMD is 0.869 g/cm2 T-score is -0.6 This is increased in comparison to prior exam which is not statistically significant. Femoral neck BMD is 0.656 g/cm2 T-score is -1.7 FRAX: FRAX tool cannot be utilized due to current treatment for osteoporosis. IMPRESSION: 1. Low Bone Mass. REFERENCE: Bone mineral density: T-Score: Normal (T-score above or = -1.0) Low bone mass (T-score between -1.0 and -2.5) replaces thepreviously used term osteopenia Osteoporosis (T-score = or below -2.5) Z-Score: Within the expected range for age (Z-score above -2.0) Below the expected range for age (Z-score is -2.0 or below) Please see below follow up recommendations. Medical evaluation forsecondary causes of low bone mineral density may [...] or greaterthan 3% should be considered for pharmacological treatment for the preventionof osteoporosis. For further information, including treatment recommendations, please referto the 2019 ISCD Official Positions (http://www.iscd.org) and the NOF's Clinician's Guide to Prevention and Treatment of Osteoporosis (http://www.nof.org/professionals/clinical-guidelines) THIS IS AN ELECTRONICALLY VERIFIED FINAL REPORT 12/08/2024 6:46 PM - Electronically signed by Antonio Leiva M.D. MF: PAN Report ID: [id number] Reading Location: [place] [address] [place] Crissy Ramirez NP IMG DXA PROCEDURES Final R esult * eGFR (10/28/2024 10:10 AM CDT) eGFR >90 >=60 mL/min/1. 73 m2 Comment: Interpretive Data Reference Interval Normal >/= 90 mL/min/1.73m2 Mildly decreased* 60 - 89 mL/min/1.73m2 Mildly to moderately decreased 45 - 59 mL/min/1.73m2 Moderately to severely decreased 30 - 44 mL/min/1.73m2 Severely decreased 15 - 29 mL/min/1.73m2 Kidney Failure < 15 mL/min/1.73m2 *Relative to young adult level Estimated glomerular filtration rate is determined by the 2020 CKD-EPI equation recommended by the National Kidney Foundation (A Unifying Approach to GFR Estimation: Recommendations of the NKF-ASK Task Force on Reassessing the Inclusion of Race in Diagnosing Kidney Disease, JASN 2020). The CKD-EPI equation should not be used for patients with unstable renal function and has not been validated in children and those over 70. Current interpretive data was last reviewed 2021. Testing performed by: [facility], [facility], [place], [address] Blood 10/28/2024 10:1 0 AM CDT 10/28/2024 10:34 AM CDT us Crissy Ramirez NP LAB BLOOD ORDERABLES Final Result STACY RICHARDSON ([place]) [address] [facility] [place] [address] * Differential, auto (10/28/2024 10:10 AM CDT) Neutrophil abs 2.55 1.50 - 6.50 K/cumm [facility] ([place]) Comment:Testing performed by : [facility] [address], Medical Office [facility] [address], [place] [address] Imm gran abs 0.01 0.00 - 0.10 K/cumm [facility] ([place]) Comment:Testing performed by : [facility] [address], Medical Office [facility] [address], [place] [address] Lymphocyte abs 1.51 0.80 - 3.30 K/cumm [facility] ([place]) Comment:Testing performed by : [facility] [address], Medical Office [facility] [address], [place] [address] Monocyte abs 0.32 0.20 - 0.80 K/cumm [facility] ([place]) Comment:Testing performed by : [facility] [address], Medical Office [facility] [address], [place] [address] Eosinophil abs 0.04 0.00 - 0.50 K/cumm [facility] ([place]) Comment:Testing performed by : [facility] [address], Medical Office [facility] [address], [place] [address] Basophil abs 0.04 0.00 - 0.10 K/cumm [facility] ([place]) Comment:Testing performed by : [facility] [address], Medical Office [facility] [address], [place] [address] Neutrophil pct 57.0 % [facility] ([place]) Comment: Interpretive Data Percent cell count reference ranges are not reported, since discordance with absolute values may lead to misinterpretation of CBC data. Current Interpretive Data was last revised on 2022. Testing performed by: [facility] [address], Medical Office [facility] [address], [place] [address] Imm gran pct 0.2 % [facility] ([place]) Comment: Interpretive Data Percent cell count reference ranges are not reported, since discordance with absolute values may lead to misinterpretation of CBC data. Current Interpretive Data was last revised on 2022. Testing performed by: [facility] [address], Medical Office [facility] [address], [place] [address] Lymphocyte pct 33.8 % [facility] ([place]) Comment: Interpretive Data Percent cell count reference ranges are not reported, since discordance with absolute values may lead to misinterpretation of CBC data. Current Interpretive Data was last revised on 2022. Testing performed by: [facility] [address], Medical Office [facility] [address], [place] [address] Monocyte pct 7.2 % [facility] ([place]) Comment: Interpretive Data Percent cell count reference ranges are not reported, since discordance with absolute values may lead to misinterpretation of CBC data. Current Interpretive Data was last revised on 2022. Testing performed by: [facility] [address], Medical Office [facility] [address], [place] [address] Eosinophil pct 0.9 % [facility] ([place]) Comment: Interpretive Data Percent cell count reference ranges are not reported, since discordance with absolute values may lead to misinterpretation of CBC data. Current Interpretive Data was last revised on 2022. Testing performed by: [facility] [address], Medical Office [facility] [address], [place] [address] Basophil pct 0.9 % [facility] ([place]) Comment: Interpretive Data Percent cell count reference ranges are not reported, since discordance with absolute values may lead to misinterpretation of CBC data. Current Interpretive Data was last revised on 2022. Testing performed by: [facility] [address], Medical Office [facility] [address], [place] [address] Blood 10/28/2024 10:1 0 AM CDT 10/28/2024 10:11 AM CDT Crissy Ramirez CASE COORDINATOR LAB BLOOD ORDERABLES Final Result STACY RICHARDSON ([place]) [address] [facility] Department of Laboratories [place], [place] [address] * (ABNORMAL) CBC with auto differential (10/28/2024 10:10 AM CDT) WBC 4.47 3.80 - 9.90 K/cumm [facility] ([place]) Comment:Testing performed by : [facility] [address], Medical Office [address], [place] [address] Hgb 13.3 11.9 - 15.5 g/dL [facility] ([place]) Comment:Testing performed by : [facility] [address], Medical Office [address], [place] [address] Hct 40.3 35.6 - 45.5 % [facility] ([place]) Comment:Testing performed by : [facility] [address], Medical Office [facility] [address], [place] [address] Plt 224 150 - 400 K/cumm [facility] ([place]) Comment:Testing performed by : [facility] [address], Medical Office [facility] [address], [place] [address] MPV 8.8(L) 9.1 - 12.3 fL [facility] ([place]) Comment:Testing performed by : [facility] [address], Medical Office [facility] [address], [place] [address] RBC 4.32 3.90 - 5.20 M/cumm [facility] ([place]) Comment:Testing performed by : [facility] [address], Medical Office [facility] [address], [place] [address] MCV 93.3 81.3 - 96.4 fL [facility] ([place]) Comment:Testing performed by : [facility] [address], Medical Office [facility] [address], [place] [address] MCH 30.8 27.1 - 33.3 pg [facility] ([place]) Comment:Testing performed by : [facility] [address], Medical Office [address], [place] [address] MCHC 33.0 32.3 - 35.7 g/dL [facility] ([place]) Comment:Testing performed by : [facility] [address], Medical Office [address], [place] [address] RDW CV 12.1 11.1 - 14.9 % [facility] ([place]) Comment:Testing performed by : [facility] [address], Medical Office [facility] [address], [place] [address] RDW SD 42.3 35.7 - 48.1 fL [facility] ([place]) Comment:Testing performed by : [facility] [address], Medical Office [address], [place] [address] Blood 10/28/2024 10:1 0 AM CDT 10/28/2024 10:11 AM CDT us Crissy Ramirez CASE COORDINATOR LAB BLOOD ORDERABLES Final Result [facility] ([place]) [address] [facility] [place] [address] * Comprehensive metabolic panel (10/28/2024 10:10 AM CDT) Sodium 143 135 - 145 mmol/L Comment:Testing performed by : [facility], [place], [address] Potassium, pl 4.5 3.3 - 4.9 mmol/L [facility] ([place]) Comment:Testing performed by : [facility], [place], [address] Chloride 106 97 - 110 mmol/L [facility] ([place]) Comment:Testing performed by : [facility], [place], [address] CO2 27 22 - 32 mmol/L [facility] ([place]) Comment:Testing performed by : [facility], [place], [address] Anion gap 10 2 - 15 mmol/L [facility] ([place]) Comment:Testing performed by : [facility], [place], [address] BUN 16 6 - 25 mg/dL [facility] ([place]) Comment:Testing performed by : [facility], [place], [address] Creatinine 0.71 0.60 - 1.10 mg/dL [facility] ([place]) Comment:Testing performed by : [facility], [place], [address] Glucose 90 70 - 199 mg/dL [facility] ([place]) Comment: Interpretive Data Fasting glucose >/= 126 mg/dl is diagnostic for diabetes. Fasting is defined as no caloric intake for at least 8 hours. Fasting glucose between 100 mg/dl to 125 mg/dl is diagnostic of prediabetes. In a patient with classic symptoms of hyperglycemia or hyperglycemic crisis, a random glucose >/= 200 mg/dl is diagnostic for diabetes. In the absence of unequivocal hyperglycemia, results should be confirmed by repeat testing. The classification and Diagnosis of Diabetes Diabetes Care 2021; 46: S19-S40. Current interpretive data was last revised 2022. Testing performed by: [place], [address] Calcium 9.7 8.5 - 10.3 mg/dL [facility] ([place]) Comment:Testing performed by : [place], [address] Bilirubin, total 0.3 0.1 - 1.2 mg/dL [facility] ([place]) Comment:Testing performed by : [place], [address] Protein, pl 7.4 6.5 - 8.5 g/dL [facility] ([place]) Comment:Testing performed by : [place], [address] Albumin 4.3 3.5 - 5.0 g/dL [facility] ([place]) Comment:Testing performed by : [place], [address] Alk phos 87 40 - 130 Units/L [facility] ([facility]) Comment:Testing performed by : [place], [address] ALT 22 7 - 45 Units/L [facility] ([place]) Comment:Testing performed by : [facility], [place], [address] AST 21 10 - 45 Units/L [facility] ([place]) Comment:Testing performed by : [place], [address] Blood 10/28/2024 10:1 0 AM CDT 10/28/2024 10:34 AM CDT us Crissy Ramirez CASE COORDINATOR LAB BLOOD ORDERABLES Final Result Performing Organization Address [facility] de Phone Number [facility] ([facility]) 1 [facility] [place] [address] * eGFR (10/13/2024 10:47 AM CDT) eGFR 90 >=60 mL/min/1. 73 m2 Comment: Interpretive Data Reference Interval Normal >/= 90 mL/min/1.73m2 Mildly decreased* 60 - 89 mL/min/1.73m2 Mildly to moderately decreased 45 - 59 mL/min/1.73m2 Moderately to severely decreased 30 - 44 mL/min/1.73m2 Severely decreased 15 - 29 mL/min/1.73m2 Kidney Failure < 15 mL/min/1.73m2 *Relative to young adult level Estimated glomerular filtration rate is determined by the 2020 CKD-EPI equation recommended by the National Kidney Foundation (A Unifying Approach to GFR Estimation: Recommendations of the NKF-ASK Task Force on Reassessing the Inclusion of Race in Diagnosing Kidney Disease, JASN 2020). The CKD-EPI equation should not be used for patients with unstable renal function and has not been validated in children and those over 70. Current interpretive data was last reviewed 2021. Testing performed by: [facility], [address] [place] [address]., [address] Blood 10/13/2024 10:4 7 AM CDT 10/13/2024 6:38 PM CDT Joi Cortez CASE COORDINATOR LAB BLOOD ORDERABLES Final Result Performing Organization Address City/[facility] Co de Phone Number [facility] ([place]) 1 [facility] [place] [address] * Differential, auto (10/13/2024 10:47 AM CDT) Neutrophil abs 3.06 1.50 - 6.50 K/cumm Comment:Testing performed by : [address] [address] Imm gran abs 0.01 0.00 - 0.10 K/cumm [facility] ([place]) Comment:Testing performed by : [facility], [address] [place] [address]., [address] Lymphocyte abs 1.69 0.80 - 3.30 K/cumm [facility] ([place]) Comment:Testing performed by : [facility], [address] [place] [address]., [address] Monocyte abs 0.34 0.20 - 0.80 K/cumm [facility] ([place]) Comment:Testing performed by : [facility], [address] [place] [address]., [address] Eosinophil abs 0.06 0.00 - 0.50 K/cumm [facility] ([place]) Comment:Testing performed by : [facility], [address] [place] [address]., [address] Basophil abs 0.06 0.00 - 0.10 K/cumm [facility] ([place]) Comment:Testing performed by : [facility], [address] [place] [address]., [address] Neutrophil pct 58.7 % [facility] ([place]) Comment: Interpretive Data Percent cell count reference ranges are not reported, since discordance with absolute values may lead to misinterpretation of CBC data. Current Interpretive Data was last revised on 2017. Testing performed by: [facility], [address] [place] [address], [address] Imm gran pct 0.2 % [facility] ([place]) Comment: Interpretive Data Percent cell count reference ranges are not reported, since discordance with absolute values may lead to misinterpretation of CBC data. Current Interpretive Data was last revised on 2017. Testing performed by: [address] [address] Lymphocyte pct 32.4 % [facility] ([place]) Comment: Interpretive Data Percent cell count reference ranges are not reported, since discordance with absolute values may lead to misinterpretation of CBC data. Current Interpretive Data was last revised on 2017. Testing performed by: [address] [address] Monocyte pct 6.5 % [facility] ([place]) Comment: Interpretive Data Percent cell count reference ranges are not reported, since discordance with absolute values may lead to misinterpretation of CBC data. Current Interpretive Data was last revised on 2017. Testing performed by: [facility], [address] [place] [address]., [address] Eosinophil pct 1.1 % VIKI RICHARDSON ([place]) Comment: Interpretive Data Percent cell count reference ranges are not reported, since discordance with absolute values may lead to misinterpretation of CBC data. Current Interpretive Data was last revised on 2017. Testing performed by: [address] [address] Basophil pct 1.1 % STACY RICHARDSON ([place]) Comment: Interpretive Data Percent cell count reference ranges are not reported, since discordance with absolute values may lead to misinterpretation of CBC data. Current Interpretive Data was last revised on 2017. Testing performed by: [address], [address] Blood 10/13/2024 10:4 7 AM CDT 10/13/2024 6:22 PM CDT Joi Cortez CASE COORDINATOR LAB BLOOD ORDERABLES Final Result STACY RICHARDSON (TH[place]ER) 1 [facility] Department [place] [address] * (ABNORMAL) CBC with auto differential (10/13/2024 10:47 AM CDT) WBC 5.22 3.80 - 9.90 K/cumm Comment:Testing performed by : [address], [address] Hgb 13.7 11.9 - 15.5 g/dL STACY RICHARDSON ([place]) Comment:Testing performed by : [address] [address] Hct 43.6 35.6 - 45.5 % STACY RICHARDSON ([place]) Comment:Testing performed by : [address] [address] Plt 286 150 - 400 K/cumm STACY RICHARDSON ([place]) Comment:Testing performed by : [address], [address] MPV 9.4 9.1 - 12.3 fL [facility] ([place]) Comment:Testing performed by : [facility], [address] [place] [address], [address] RBC 4.56 3.90 - 5.20 M/cumm [facility] ([place]) Comment:Testing performed by : [facility], [address] [place] [address], [address] MCV 95.6 81.3 - 96.4 fL [facility] ([place]) Comment:Testing performed by : [facility], [address] [place] [address], [address] MCH 30.0 27.1 - 33.3 pg [facility] ([place]) Comment:Testing performed by : [address], [address] MCHC 31.4(L) 32.3 - 35.7 g/dL [facility] ([place]) Comment:Testing performed by : [address], [address] RDW CV 12.3 11.1 - 14.9 % [facility] ([place]) Comment:Testing performed by : [address], [address] RDW SD 43.4 35.7 - 48.1 fL [facility] ([place]) Comment:Testing performed by : [address], [address] NRBC abs 0.00 0.00 - 0.01 K/cumm [facility] ([place]) Comment:Testing performed by : [address], [address] Blood 10/13/2024 10:4 7 AM CDT 10/13/2024 6:22 PM CDT Joi Cortez NP LAB BLOOD ORDERABLES Final Result ST[facility]Y R[facility]ARDSON ([place]) 1 [facility] Department [place] [address] * (ABNORMAL) Lipid panel (10/13/2024 10:47 AM CDT) Cholesterol 202(H) 30 - 199 mg/dL Comment: Interpretive Data Ages < or = 19 years Acceptable: <170 mg/dL Borderline high: 170-199 mg/dL High: >or= 200 mg/dL Ages > or = 20 years Desirable: <200 mg/dL Borderline high: 200-239 mg/dL High: >or= 240 mg/dL Literature References: 1. Expert Panel on Integrated Guidelines for Cardiovascular Health and Risk Reduction in Children and Adolescents. Pediatrics 2011;128:S213 2. NCEP Expert Panel. Circulation 2004;110:227 Current Interpretive Data was last revised on 2018. Testing performed by: [facility], [address] [place] [address]., [address] Triglycerides 71 <=149 mg/dL [facility] ([place]) Comment: Interpretive Data Ages < or = 9 years Acceptable: <75 mg/dL Borderline high: 75-99 mg/dL High: >or= 100 mg/dL Ages 10 to 20 years Acceptable: <90 mg/dL Borderline high: 90-129 mg/dL High: >or= 130 mg/dL Ages > or = 20 years Desirable: <150 mg/dL Borderline high: 150-199 mg/dL High: 200-499 mg/dL Very high: >or= 499 mg/dL Literature References: 1. Expert Panel on Integrated Guidelines for Cardiovascular Health and Risk Reduction in Children and Adolescents. Pediatrics 2011;128:S213 2. NCEP Expert Panel. Circulation 2004;110:227 Current Interpretive Data was last revised on 2018. Testing performed by: [facility], [address] [place] [address]., [address] HDL 66 >=40 mg/dL [facility] ([place]) Comment: Interpretive Data Ages < or = 19 years Acceptable: >45 mg/dL Borderline low: 40-45 mg/dL Low: <40 mg/dL Ages > or = 20 years Desirable: >or= 60 mg/dL Low: <40 mg/dL Literature References: 1. Expert Panel on Integrated Guidelines for Cardiovascular Health and Risk Reduction in Children and Adolescents. Pediatrics 2011;128:S213 2. NCEP Expert Panel. Circulation 2004;110:227 Current Interpretive Data was last revised on 2018. Testing performed by: [facility], [address] [place] [address]., [address] LDL, calculated 123 <=129 mg/dL [facility] ([place]) Comment: Interpretive Data Ages < or = 19 years Acceptable: <110 mg/dL Borderline high: 110-129 mg/dL High: >or= 130 mg/dL Ages > or = 20 years Optimal: <100 mg/dL Near optimal: 100-129 mg/dL Borderline high: 130-159 mg/dL High: >160 mg/dL Calculated using the Ashish LDL-C estimating equation. This equation was implemented on 2024. Prior to this date LDL-C was estimated using the Friedewald equation. Literature References: 1. Expert Panel on Integrated Guidelines for Cardiovascular Health and Risk Reduction in Children and Adolescents. Pediatrics 2011;128:S213 2. NCEP Expert Panel. Circulation 2004;110:227 3. Ashish Silva et al. RYAN Cardiol. 2020 September 30;5(5):540-548. doi: 10.1001/jamacardio.2020.0013 Current Interpretive Data was last revised on 2024. Testing performed by: [address] [address] Non-HDL Cholesterol 136 mg/dL ST[facility] R[facility]ARDS[facility] ([place]) Comment: Interpretive Data Ages < or = 19 years Acceptable: <120 mg/dL Borderline high: 120-144 mg/dL High: >145 mg/dL Ages > or = 20 years When triglycerides are >200 mg/dL, Non-HDL cholesterol is a secondary target of therapy with treatment goals that are 30 mg/dL greater than the LDL cholesterol target. Literature References: 1. Expert Panel on Integrated Guidelines for Cardiovascular Health and Risk Reduction in Children and Adolescents. Pediatrics 2011;128:S213 2. NCEP Expert Panel. Circulation 2004;110:227 Current Interpretive Data was last revised on 2018. Testing performed by: [address] [address] Chol/HDL ratio 3 VIKI RICHARDSON ([place]E) Comment:Testing performed by : [address] [address] Blood 10/13/2024 10:4 7 AM CDT 10/13/2024 6:22 PM CDT Joi Cortez CASE COORDINATOR LAB BLOOD ORDERABLES Final Result [facility] ([place]) 1 [facility] [place] [address] * Comprehensive metabolic panel (10/13/2024 10:47 AM CDT) Sodium 143 135 - 145 mmol/L Comment:Testing performed by : [facility], [address] [place] [address]., [address] Potassium, pl 4.3 3.3 - 4.9 mmol/L [facility] ([place]) Comment:Testing performed by : [facility], [address] [place] [address]., [address] Chloride 105 97 - 110 mmol/L [facility] ([place] Comment:Testing performed by : [facility], [address] [place] [address]., [address] CO2 29 22 - 32 mmol/L [facility] ([place]) Comment:Testing performed by : [facility], [address] [place] [address]., [address] Anion gap 9 2 - 15 mmol/L [facility] ([place]) Comment:Testing performed by : [facility], [address] [place] [address]., [address] BUN 16 6 - 25 mg/dL [facility] ([place]) Comment:Testing performed by : [facility], [address] [place] [address]., [address] Creatinine 0.73 0.60 - 1.10 mg/dL [facility] ([place]) Comment:Testing performed by : [address] [address] Glucose 81 70 - 199 mg/dL [facility] ([place]) Comment: Interpretive Data Fasting glucose >/= 126 mg/dl is diagnostic for diabetes. Fasting is defined as no caloric intake for at least 8 hours. Fasting glucose between 100 mg/dl to 125 mg/dl is diagnostic of prediabetes. In a patient with classic symptoms of hyperglycemia or hyperglycemic crisis, a random glucose >/= 200 mg/dl is diagnostic for diabetes. In the absence of unequivocal hyperglycemia, results should be confirmed by repeat testing. The classification and Diagnosis of Diabetes Diabetes Care 202; 46: S19-S40. Current interpretive data was last revised 2022. Testing performed by: [facility], [address] [place] [address], [address] Calcium 9.7 8.5 - 10.3 mg/dL [facility] ([place]) Comment:Testing performed by : [facility], [address] [place] [address], [address] Bilirubin, total 0.3 0.1 - 1.2 mg/dL [facility] ([place]) Comment:Testing performed by : [facility], [address] [place] [address], [address] Protein, pl 7.5 6.5 - 8.5 g/dL [facility] ([place]) Comment:Testing performed by : [facility], [address] [place] [address], [address] Albumin 4.5 3.5 - 5.0 g/dL [facility] ([place]) Comment:Testing performed by : [address], [address] Alk phos 83 40 - 130 Units/L [facility] ([place]) Comment:Testing performed by : [address], [address] ALT 24 7 - 45 Units/L [facility] ([place]) Comment:Testing performed by : [address], [address] AST 30 10 - 45 Units/L [facility] ([place]) Comment:Testing performed by : [address], [address] Blood 10/13/2024 10:4 7 AM CDT 10/13/2024 6:22 PM CDT Joi Cortez CASE COORDINATOR LAB BLOOD ORDERABLES Final Result [facility] ([place]) 1 [facility] Department [place] [address] * Diagnostic Mammogram Bilateral W Adam (05/06/2024 9:48 AM BUSINESS DEVELOPER) Anatomical Region Laterality Modality Breast Bilateral Mammography 05/06/2024 10:2 6 AM BUSINESS DEVELOPER Impressions 05/06/2024 12:59 PM BUSINESS DEVELOPER 1. Stable changes of RIGHT breast conservation [...] Theo Whaley MD Narrative 05/06/2024 12:59 PM BUSINESS DEVELOPER EXAMINATION: BILATERAL DIGITAL DIAGNOSTIC MAMMOGRAM INCLUDING CAD [...] Provider ENDOSCOPY PROCEDURES Heidy l Result * Hepatitis C antibody (04/18/2017) SCRIBED HCV ab negative EXTERNAL LAB Blood specimen (specimen) Narrative EXTERNAL LAB - 04/18/2017 Results are already scanned in media us Historical Provider LAB MICROBIOLOGY - GENERA L ORDERABLES Final Result EXTERNAL LAB from Last 3 Months or Most Recently Relevant to Health Maintenance Insurance [facility] [employer] Member Subscriber Plan / Payer (Ef fective 2022-Present) Name:Carolyn Marcelino Relation to Subscriber:Self Name:Carolyn Marcelino Payer ID:[id number] Group ID:Not on file Type:[employer] Address: [facility] [address] [place], [place] [id number] [employer] Member Subscriber Plan / Payer (Ef fective 2022-Present) Name:Carolyn Marcelino Relation to Subscriber:Self Name:Carolyn Marcelino Payer ID:[id number] Group ID:Not on file Type:[employer] Address: [facility] [address] [place], [place] Care Teams Marine Services Technician Relationship Specialty Start Date End Date Carlos [place]ón [place] [address] PCP - General Family Medicine 08/25/23 Ismael Fischer MD [address] [facility] [address] [place] [address] [address] Consulting Physician Obstetrics and Gynecology 06/13/22 Pascual Talley MD [address] [facility] [address] EAN Olvera [address] [address] Medical Oncologist/Broom Machine Operator Hematology and Oncology 09/27/22 Kirill Huerta MD PhD [address] [place] [address] [place] [address] Radiation Oncologist Radiation Oncology 10/10/22
--- OUTSIDE RECORDS SUMMARY | 2024-12-14 00:33 | XMS_ITS | Clinical Summary ---
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 Wagner at [facility]. Going for scope on 11/14/24. No contraindications to upcoming procedure. Denies history of complication with anesthesia. Denies COPD/asthma, FRANNY, DVT/PE. Allergic to PCN. Non-smoker. [facility] Assessment & Plan (10/21/2024 1:18 PM [...] of late has been less effective. Discussed ciur-hug-tavaqwm medication options and suggested doxylamine (Unisom). And [...] prn Assessment & Plan (07/29/2022 10:55 AM PER DIEM PHYSICAL THERAPIST): Sent for xrays Likely MSK Sent to physical therapy Low suspicion for kidney stone given no other signs or cva tenderness on exam Can consider if PT doesn't help or xrays dont show much F/u in 2 months Ductal carcinoma in situ (DCIS) of right breast 07/12/2022 Overview (07/12/2022): Added automatically from request for surgery [id number] Assessment & Plan (10/21/2024 1:18 PM CDT): Following with Oncology. Continues anastrozole. Malignant neoplasm of upper- outer quadrant of right breast in female, estrogen receptor positive 07/11/2022 Cancer Staging:Pathologic stage from 09/10/2022:Stage 0(pTis (DCIS), cN0, cM0, G2, ER+, AR: Not Assessed, HER2: Not Assessed) - Signed by Kirill Huerta MD PhD on 10/10/2022 Assessment & Plan (03/01/2024 9:24 AM CDT): Continues anastrozole, scheduled for follow-up with Oncology tomorrow. Assessment & Plan (08/25/2023 10:08 AM CDT): Continues f/u with oncology and radiation oncology. S/P XRT, S/P right lumpectomy Continues on anastrazole and will monitor response. Assessment & Plan (06/09/2023 12:29 PM PER DIEM PHYSICAL THERAPIST): S/p partial mastectomy and radiation treatment Continue following with specialist for management. On Anastrozole Colon cancer screening 05/18/2022 Assessment & Plan (08/25/2023 10:09 AM CDT): History of colonic polyps. Follows with Asim Marrero. Due for 5 year f/u. Referral placed. Assessment & Plan (06/10/2023 8:53 AM PER DIEM PHYSICAL THERAPIST): Labs reviewed and discussed Pneumonia vaccine given today Colonoscopy referral given today Mammo up to date Pap smear s/p hysterectomy for benign reasons. Still follows with ob F/u in 1 year for annual Assessment & Plan (05/20/2022 8:47 AM PER DIEM PHYSICAL THERAPIST): Labs done at [facility]. Will get records Pneumonia vaccine declined Colonoscopy [...] regularly. Assessment & Plan (06/09/2023 12:23 PM PER DIEM PHYSICAL THERAPIST): Stable / clinically quiescent. Will continue to monitor. Assessment & Plan (05/18/2022 1:09 PM PER DIEM PHYSICAL THERAPIST): Stable / clinically quiescent. Will continue to monitor. Muscle spasms of neck 05/11/2020 Assessment & Plan (10/21/2024 1:20 PM CDT): Stable, denies any new or worsening pain. Very infrequent use of diazepam with good response, diazepam last refilled 02/2024. Encouraged gentle stretching and smuqi-ss-vqmcga exercises. Assessment & Plan (03/01/2024 9:32 AM CDT): Infrequent use of diazepam, stable. Will continue to monitor Assessment & Plan (06/10/2023 8:48 AM PER DIEM PHYSICAL THERAPIST): Stable / clinically quiescent. Will continue to monitor. 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 Discharge Disposition: Discharge to home or self care 11/25/2024 10:30 AM CDT Office Visit [facility] [address] [place] [address] Kirill Huerta MD PhD Malignant neoplasm of upper-outer quadrant of right breast in female, estrogen receptor positive (HCC) 10/28/2024 10:15 AM CDT Office Visit [facility] Oncology [address] [place] [address] [address] [place] [address] Crissy Ramirez, LOUISE Malignant neoplasm of upper-outer quadrant of right breast in female, estrogen receptor positive (HCC) (Primary Dx); halfway (current) use of aromatase inhibitors 10/28/2024 9:45 AM CDT Lab [facility] [address] [facility] [address] [place] [address] Malignant neoplasm of upper-outer quadrant of right breast in female, estrogen receptor positive (HCC) 10/27/2024 Telephone [facility] Oncology [address] [place] [address] Medical Office [facility] [address] [place] [address] Martha Cabrera CLT 10/26/2024 Telephone [facility] [address] [address] Carlos León MD Prior Authorization (Diazepam) 10/21/2024 12:30 PM CDT [facility] [address] [address] Joi Cortez, LOUISE Encounter for annual wellness exam in Medicare patient (Primary Dx); Mixed hyperlipidemia; Ductal carcinoma in situ (DCIS) of right breast; Muscle spasms of neck; Chronic pain of left knee; BMI 24.0-24.9, adult 10/13/2024 10:50 AM CDT Lab [facility] [address] [place] [address] Mixed hyperlipidemia from Last 3 Months Immunizations Immunization Administration [...] ENDOMETRIAL ABLATION 2006 endometrial ablation TUBAL LIGATION 1985 Bilateral tubal ligation TOTAL ABDOMINAL HYSTERECTOMY W/ BILATERAL SALPINGOOPHORECTOMY 2006 Hysterectomy, total abdominal, BSO BREAST BIOPSY 06/27/2022 Right KNEE ARTHROSCOPY 06/02/2016 - 06/01/2017 Right BREAST LUMPECTOMY 08/20/2022 Right COLONOSCOPY KNEE ARTHROSCOPY W/ LATERAL RELEASE 2016 Medical History Medical History Date Comments Hx Other Medical 01 - OB Osteoarthritis Osteoarthritis Breast cancer (HCC) Family History [...] drink = 0.6 oz pur e alcohol) [facility] [employer] Answer Date Recorded In the past 12 months has [employer], oil, or water [employer] threatened to shut off services in your [...] week 08/25/2023 How often do you attend up health system or adventist services? More than 4 times per year 08/25/2023 Do you belong to any clubs o r organizations such as denominational groups, unions, fraternal or athletic groups, or [...] staff should administer the PHQ-9) 0 10/21/2024 [facility] - Occupational Stress [...] place to sleep or slept in a long term (including now)? No 08/25/2023 PHQ-9 Answer Date [...] on file Legal Sex Female 11:56 PM PER DIEM PHYSICAL THERAPIST Gender Identity Female 06/11/2021 7:33 PM PER DIEM PHYSICAL THERAPIST Sexual Orientation Not on file Obstetrics History [...] 10/28/2024 10:18 AM CDT Plan of Treatment Health Maintenance Due Date Last Done Comments Hepatitis B Screening 1973 Zoster Vaccine (1 of 2) 1974 Covid-19 Vaccine (2023-2 5 season) 2024 03/09/2021, 06/12/2020, 05/03/2020 Influenza Vaccine (#1) 2025 3, 03/02/2022, 03/02/2021, Additional history exists Breast Cancer Screening-Mammogram 05/06/2025 05/06/2024, 05/01/2023, 04/18/2022, Additional history exists Depression Screening 10/21/2025 10/21/2024, 03/01/2024, 08/25/2023, Additional history exists Fall Risk Assessment 10/21/2025 10/21/2024, 03/01/2024, 08/25/2023, Additional history exists Well Visit 65+ 10/21/2025 10/21/2024, 02/2024, 05/20/2022, Additional history exists Osteoporosis Screening-Bone Density Scan 12/08/2026 12/08/2024, 11/29/2022, 02/13/2017 DTaP/Tdap/Td Vaccine (3 - Td or Tdap) [...] history exists Medical Devices Implanted Type Area Tablet Coater Device Identifier Shelf Expiration Date Model / Serial / Lot [employer] Ghiatas 20ga 15cm 5cm Beaded Needle Breast Wire Localization 96416 - [id number] Implanted:Qty: 1 on 08/20/2022 at [facility] Right: Breast [employer] [id number] / / [employer] Ghiatas 20ga 20cm 7cm Beaded Needle Breast Wire Localization [id number] - [id number] Implanted:Qty: 1 on 08/20/2022 at [facility] Right: Breast [employer] [id number] / / [employer] Ghiatas 20ga 20cm 7cm Beaded Needle Breast Wire Localization 50319 - [id number] Implanted:Qty: 1 on 08/20/2022 at [facility] Right: Breast [employer] [id number] / / Procedures Procedure Name Priority Date/Time Associated Diagnosis Comments DEXA AXIAL SKELETON BONE DENSITY 1 OR MORE SITES Schedule Routine, Read Routine (OP Routine) 12/08/2024 8:43 AM CDT Malignant neoplasm of upper-outer quadrant of right breast in female, estrogen receptor positive (HCC) superintendent 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 MF: PAN Report ID: [id number] Reading Location: [place] [address] Procedure Note Antonio Leiva MD - 12/08/2024 EXAM DESCRIPTION: DEXA AXIAL SKELETON BONE DENSITY 1 OR MORE SITES REASON FOR STUDY: 69 y/o year old F with given history of: 69 y/o Fwith given history of: On high risk medications for history of breast cancer Osteoporosis screening Post menopausal Tablet Coater/Model: [employer] (S/N 14912) Facility LSC value of 0.022 for the [...] Antonio Leiva M.D. MF: PAN Report ID: [id number] Reading Location: [place] [address] Crissy Ramirez NP IMG DXA PROCEDURES Final [...] was last reviewed 2021. Testing performed by: [facility], [address] [facility], [place], [address] Blood 10/28/2024 10:1 0 AM CDT 10/28/2024 10:34 AM CDT us Crissy Ramirez MICROARRAY OPERATIONS VICE PRESIDENT LAB BLOOD ORDERABLES Final Result STACY RICHARDSON ([place]) [address] [facility] [place] [address] * Differential, auto (10/28/2024 10:10 AM CDT) Neutrophil abs 2.55 1.50 - 6.50 K/cumm STACY RICHARDSON ([place]) Comment:Testing performed by : [facility] [address], Medical Office [facility] [address], [place] [address] Imm gran abs 0.01 0.00 - 0.10 K/cumm STACY RICHARDSON ([place]) Comment:Testing performed by : [facility] [address], Medical Office [facility] [address], [place] [address] Lymphocyte abs 1.51 0.80 - 3.30 K/cumm STACY RICHARDSON ([place]) Comment:Testing performed by : [facility] [address], Medical Office [address], [place] [address] Monocyte abs 0.32 0.20 - 0.80 K/cumm [facility] ([place]) Comment:Testing performed by : [facility] [address], Medical Office [facility] [address], [place] [address] Eosinophil abs 0.04 0.00 - 0.50 K/cumm [facility] ([place]) Comment:Testing performed by : [facility] [address], Medical Office [facility] [address], [place] [address] Basophil abs 0.04 0.00 - 0.10 K/cumm [facility] ([place]) Comment:Testing performed by : [facility] [address], Medical Office [facility] [address], [place] [address] Neutrophil pct 57.0 % [facility] ([place]) Comment: Interpretive Data Percent cell count reference ranges are not reported, since discordance with absolute values may lead to misinterpretation of CBC data. Current Interpretive Data was last revised on 2022. Testing performed by: [facility] [address], Medical Office [facility] [address], [place] [address] Imm gran pct 0.2 % [facility] ([place]) Comment: Interpretive Data Percent cell count reference ranges are not reported, since discordance with absolute values may lead to misinterpretation of CBC data. Current Interpretive Data was last revised on 2022. Testing performed by: [facility] [address], Medical Office [facility] [address], [place] [address] Lymphocyte pct 33.8 % [facility] ([place]) Comment: Interpretive Data Percent cell count reference ranges are not reported, since discordance with absolute values may lead to misinterpretation of CBC data. Current Interpretive Data was last revised on 2022. Testing performed by: [facility] [address], Medical Office [facility] [address], [place] [address] Monocyte pct 7.2 % [facility] ([place]) Comment: Interpretive Data Percent cell count reference ranges are not reported, since discordance with absolute values may lead to misinterpretation of CBC data. Current Interpretive Data was last revised on 2022. Testing performed by: [facility] [address], Medical Office [facility] [address], [place] [address] Eosinophil pct 0.9 % [facility] ([place]) Comment: Interpretive Data Percent cell count reference ranges are not reported, since discordance with absolute values may lead to misinterpretation of CBC data. Current Interpretive Data was last revised on 2022. Testing performed by: [facility] [address], Medical Office [facility] [address], [place] [address] Basophil pct 0.9 % [facility] ([place]) Comment: Interpretive Data Percent cell count reference ranges are not reported, since discordance with absolute values may lead to misinterpretation of CBC data. Current Interpretive Data was last revised on 2022. Testing performed by: [facility] [address], Medical Office [facility] [address], [place] [address] Blood 10/28/2024 10:1 0 AM CDT 10/28/2024 10:11 AM CDT Crissy Ramirez MICROARRAY OPERATIONS VICE PRESIDENT LAB BLOOD ORDERABLES Final Result STACY RICHARDSON ([place]) [address] [facility] Department [place] [address] * (ABNORMAL) CBC with auto differential (10/28/2024 10:10 AM CDT) WBC 4.47 3.80 - 9.90 K/cumm STACY RICHARDSON ([place]) Comment:Testing performed by : [facility] [address], Medical Office [facility] [address], [place] [address] Hgb 13.3 11.9 - 15.5 g/dL STACY RICHARDSON ([place]) Comment:Testing performed by : [facility] [address], Medical Office [facility] [address], [place] [address] Hct 40.3 35.6 - 45.5 % STACY RICHARDSON ([place]) Comment:Testing performed by : [facility] [address], Medical Office [facility] [address] [facility] [address], [place] [address] Plt 224 150 - 400 K/cumm [facility] ([place]) Comment:Testing performed by : [facility] [address], Medical Office [facility] [address], [place] [address] MPV 8.8(L) 9.1 - 12.3 fL [facility] ([place]) Comment:Testing performed by : [facility] [address], Medical Office [facility] [address], [place] [address] RBC 4.32 3.90 - 5.20 M/cumm [facility] ([place]) Comment:Testing performed by : [facility] [address], Medical Office [facility] [address], [place] [address] MCV 93.3 81.3 - 96.4 fL [facility] ([place]) Comment:Testing performed by : [facility] [address], Medical Office [facility] [address], [place] [address] MCH 30.8 27.1 - 33.3 pg [facility] ([place]) Comment:Testing performed by : [facility] [address], Medical Office [facility] [address], [place] [address] MCHC 33.0 32.3 - 35.7 g/dL [facility] ([place]) Comment:Testing performed by : [facility] [address], Medical Office [facility] [address], [place] [address] RDW CV 12.1 11.1 - 14.9 % [facility] ([place]) Comment:Testing performed by : [facility] [address], Medical Office [facility] [address], [place] [address] RDW SD 42.3 35.7 - 48.1 fL [facility] ([place]) Comment:Testing performed by : [facility] [address], Medical Office [facility] [address], [place] [address] Blood 10/28/2024 10:1 0 AM CDT 10/28/2024 10:11 AM CDT us Crissy Ramirez MICROARRAY OPERATIONS VICE PRESIDENT LAB BLOOD ORDERABLES Final Result STACY RICHARDSON ([place]) [address] [facility] [place] [address] * Comprehensive metabolic panel (10/28/2024 10:10 AM CDT) Sodium 143 135 - 145 mmol/L Comment:Testing performed by : [facility], [place], [address] Potassium, pl 4.5 3.3 - 4.9 mmol/L [facility] ([place]) Comment:Testing performed by : [facility], [place], [address] Chloride 106 97 - 110 mmol/L [facility] ([place]) Comment:Testing performed by : [facility], [place], [address] CO2 27 22 - 32 mmol/L [facility] ([place]) Comment:Testing performed by : [facility], [place], [address] Anion gap 10 2 - 15 mmol/L [facility] ([place]) Comment:Testing performed by : [facility], [place], [address] BUN 16 6 - 25 mg/dL [facility] ([place]) Comment:Testing performed by : [facility], [place], [address] Creatinine 0.71 0.60 - 1.10 mg/dL [facility] ([place]) Comment:Testing performed by : [facility], [place], [address] Glucose 90 70 - 199 mg/dL [facility] ([place]) Comment: Interpretive Data Fasting glucose >/= 126 [...] was last revised 2022. Testing performed by: [facility], [place], [address] Calcium 9.7 8.5 - 10.3 mg/dL [facility] ([place]) Comment:Testing performed by : [facility], [place], [address] Bilirubin, total 0.3 0.1 - 1.2 mg/dL [facility] ([place]) Comment:Testing performed by : [facility], [facility], [place], [address] Protein, pl 7.4 6.5 - 8.5 g/dL [facility] ([place]) Comment:Testing performed by : [facility], [place], [address] Albumin 4.3 3.5 - 5.0 g/dL [facility] ([place]) Comment:Testing performed by : [facility], [place], [address] Alk phos 87 40 - 130 Units/L [facility] ([place]) Comment:Testing performed by : [facility], [place], [address] ALT 22 7 - 45 Units/L [facility] ([place]) Comment:Testing performed by : [facility], [place], [address] AST 21 10 - 45 Units/L [facility] ([place]) Comment:Testing performed by : [facility], [place], [address] Blood 10/28/2024 10:1 0 AM CDT 10/28/2024 10:34 AM CDT us Crissy Ramirez MICROARRAY OPERATIONS VICE PRESIDENT LAB BLOOD ORDERABLES Final Result [facility] ([place]) [address] [facility] Department [place] [address] * eGFR (10/13/2024 10:47 AM CDT) eGFR [...] was last reviewed 2021. Testing performed by: [facility], [address] [place] [address], [address] Blood 10/13/2024 10:4 7 AM CDT 10/13/2024 6:38 PM CDT Joi Cortez NP LAB BLOOD ORDERABLES Final Result STACY RICHARDSON ([place]) [address] [facility] Department [place] [address] * Differential, auto (10/13/2024 10:47 AM CDT) Neutrophil abs 3.06 1.50 - 6.50 K/cumm Comment:Testing performed by : [facility], [address] [place] [address], [address] Imm gran abs 0.01 0.00 - 0.10 K/cumm [facility] ([place]) Comment:Testing performed by : [facility], [address] [place] [address]., [address] Lymphocyte abs 1.69 0.80 - 3.30 K/cumm [facility] ([place]) Comment:Testing performed by : [address], [address] Monocyte abs 0.34 0.20 - 0.80 K/cumm [facility] ([place]) Comment:Testing performed by : [facility], [address] [place] [address], [address] Eosinophil abs 0.06 0.00 - 0.50 K/cumm [facility] ([place]) Comment:Testing performed by : [address], [address] Basophil abs 0.06 0.00 - 0.10 K/cumm [facility] ([place]) Comment:Testing performed by : [facility], [address] [place] [address]., [address] Neutrophil pct 58.7 % [facility] ([place]) Comment: Interpretive Data Percent cell count reference ranges are not reported, since discordance with absolute values may lead to misinterpretation of CBC data. Current Interpretive Data was last revised on 2017. Testing performed by: [facility], [address] [place] [address]., [address] Imm gran pct 0.2 % [facility] ([place]) Comment: Interpretive Data Percent cell count reference ranges are not reported, since discordance with absolute values may lead to misinterpretation of CBC data. Current Interpretive Data was last revised on 2017. Testing performed by: [facility], [address] [place] [address]., [address] Lymphocyte pct 32.4 % [facility] ([place]) Comment: Interpretive Data Percent cell count reference ranges are not reported, since discordance with absolute values may lead to misinterpretation of CBC data. Current Interpretive Data was last revised on 2017. Testing performed by: [facility], [address] [place] [address]., [address] Monocyte pct 6.5 % [facility] ([place]) Comment: Interpretive Data Percent cell count reference ranges are not reported, since discordance with absolute values may lead to misinterpretation of CBC data. Current Interpretive Data was last revised on 2017. Testing performed by: [facility], [address] [place] [address]., [address] Eosinophil pct 1.1 % [facility] ([place]) Comment: Interpretive Data Percent cell count reference ranges are not reported, since discordance with absolute values may lead to misinterpretation of CBC data. Current Interpretive Data was last revised on 2017. Testing performed by: [address] [address] Basophil pct 1.1 % [facility] ([place]) Comment: Interpretive Data Percent cell count reference ranges are not reported, since discordance with absolute values may lead to misinterpretation of CBC data. Current Interpretive Data was last revised on 2017. Testing performed by: [address] [address] Blood 10/13/2024 10:4 7 AM CDT 10/13/2024 6:22 PM CDT Joi Cortez MICROARRAY OPERATIONS VICE PRESIDENT LAB BLOOD ORDERABLES Final Result [facility] ([place]) [address] [facility] Department [place] [address] * (ABNORMAL) CBC with auto differential (10/13/2024 10:47 AM CDT) WBC 5.22 3.80 - 9.90 K/cumm Comment:Testing performed by : [facility], [address] [place] [address], [address] Hgb 13.7 11.9 - 15.5 g/dL [facility] ([place]) Comment:Testing performed by : [address], [address] Hct 43.6 35.6 - 45.5 % [facility] ([place]) Comment:Testing performed by : [facility], [address] [place] [address], [id number] Plt 286 150 - 400 K/cumm [facility] ([place]) Comment:Testing performed by : [address], [address] MPV 9.4 9.1 - 12.3 fL [facility] ([place]) Comment:Testing performed by : [address], [address] RBC 4.56 3.90 - 5.20 M/cumm [facility] ([place]) Comment:Testing performed by : [address], [address] MCV 95.6 81.3 - 96.4 fL [facility] ([place]) Comment:Testing performed by : [address], [address] MCH 30.0 27.1 - 33.3 pg [facility] ([place]) Comment:Testing performed by : [address], [address] MCHC 31.4(L) 32.3 - 35.7 g/dL [facility] ([place]) Comment:Testing performed by : [facility], [address] [place] [address]., [address] RDW CV 12.3 11.1 - 14.9 % [facility] ([place]) Comment:Testing performed by : [facility], [address] [place] [address]., [address] RDW SD 43.4 35.7 - 48.1 fL [facility] ([place]) Comment:Testing performed by : [facility], [address] [place] [address], [address] NRBC abs 0.00 0.00 - 0.01 K/cumm [facility] ([place]) Comment:Testing performed by : [facility], [address] [place] [address], [address] Blood 10/13/2024 10:4 7 AM CDT 10/13/2024 6:22 PM CDT Joi Cortez [employer]PERATIONS VICE PRESIDENT LAB BLOOD ORDERABLES Final Result [facility] ([place]) 1 [facility] Department [place] [address] * (ABNORMAL) Lipid panel (10/13/2024 10:47 AM [...] last revised on 2018. Testing performed by: [facility], [address] [place] [address], [address] Triglycerides 71 <=149 mg/dL [facility] ([place]) Comment: Interpretive Data [...] last revised on 2018. Testing performed by: [facility], [address] [place] [address]., [address] HDL 66 >=40 mg/dL [facility] ([place]) Comment: Interpretive Data [...] last revised on 2018. Testing performed by: [facility], [address] [place] [address]., [address] LDL, calculated 123 <=129 mg/dL [facility] ([place]) Comment: Interpretive Data [...] last revised on 2024. Testing performed by: [facility], [address] [place] [address]., [address] Non-HDL Cholesterol 136 mg/dL [facility] ([place]) [...] last revised on 2018. Testing performed by: [address] [address] Chol/HDL ratio 3 VIKI R[facility]ARDSON ([place]) Comment:Testing performed by : [address] [address] Blood 10/13/2024 10:4 7 AM CDT 10/13/2024 6:22 PM CDT Joi Cortez NP LAB BLOOD ORDERABLES Final Result [facility] ([place]) 1 [facility] Department [place] [address] * Comprehensive metabolic panel (10/13/2024 10:47 AM CDT) Sodium 143 135 - 145 mmol/L Comment:Testing performed by : [address] [address] Potassium, pl 4.3 3.3 - 4.9 mmol/L [facility] ([place]) Comment:Testing performed by : [address] [address] Chloride 105 97 - 110 mmol/L [facility] ([place]) Comment:Testing performed by : [address] [address] CO2 29 22 - 32 mmol/L [facility] ([place]) Comment:Testing performed by : [facility], [address] [place] [address], [address] Anion gap 9 2 - 15 mmol/L [facility] ([place]) Comment:Testing performed by : [address], [address] BUN 16 6 - 25 mg/dL [facility] ([place]) Comment:Testing performed by : [address], [address] Creatinine 0.73 0.60 - 1.10 mg/dL [facility] ([place]) Comment:Testing performed by : [address], [address] Glucose 81 70 - 199 mg/dL [facility] ([place]) Comment: Interpretive Data Fasting glucose [...] was last revised 2022. Testing performed by: [address], [address] Calcium 9.7 8.5 - 10.3 mg/dL [facility] ([place]) Comment:Testing performed by : [address], [address] Bilirubin, total 0.3 0.1 - 1.2 mg/dL [facility] ([place]) Comment:Testing performed by : [address], [address] Protein, pl 7.5 6.5 - 8.5 g/dL [facility] ([place]) Comment:Testing performed by : [address], [address] Albumin 4.5 3.5 - 5.0 g/dL [facility] ([place]) Comment:Testing performed by : [facility], [address] [place] [address]., [address] Alk phos 83 40 - 130 Units/L [facility] ([place]) Comment:Testing performed by : [facility], [address] [place] [address]., [address] ALT 24 7 - 45 Units/L [facility] ([place]) Comment:Testing performed by : [facility], [address] [place] [address]., [address] AST 30 10 - 45 Units/L [facility] ([place]) Comment:Testing performed by : [facility], [address] [place] [address]., [address] Blood 10/13/2024 10:4 7 AM CDT 10/13/2024 6:22 PM CDT Joi Cortez MICROARRAY OPERATIONS VICE PRESIDENT LAB BLOOD ORDERABLES Final Result [facility] ([place]) 1 [facility] Department [place] [address] * Diagnostic Mammogram Bilateral W Adam (05/06/2024 9:48 AM PER DIEM PHYSICAL THERAPIST) Anatomical Region Laterality Modality Breast Bilateral Mammography 05/06/2024 10:2 6 AM PER DIEM PHYSICAL THERAPIST Impressions 05/06/2024 12:59 PM PER DIEM PHYSICAL THERAPIST 1. Stable changes of RIGHT breast conservation [...] Theo Whaley MD Narrative 05/06/2024 12:59 PM PER DIEM PHYSICAL THERAPIST EXAMINATION: BILATERAL DIGITAL DIAGNOSTIC MAMMOGRAM INCLUDING CAD [...] signed by: Theo Whaley MD Sulma Chavez MICROARRAY OPERATIONS VICE PRESIDENT IMG MAMMO PROCEDURES Fi nal Result * [...] Most Recently Relevant to Health Maintenance Insurance [employer] Member Subscriber Plan / Payer (Ef fective 2022) Name:Carolyn Marcelino Relation to Subscriber:Self Name:Ximena Carolyn Avitia Payer ID:[id number] Group ID:Not on file Type:COMMERCIAL Address: [facility] [address] [address] [employer] Member Subscriber Plan / Payer (Ef fective 2022) Name:Carolyn Marcelino E Relation to Subscriber:Self Name:Carolyn Marcelino Payer ID:[id number] Group ID:Not on file Type:COMMERCIAL Address: [facility] [address], [place] [employer] [facility] [employer] [place] Care Teams Wheelage Clerk Relationship Specialty Start Date End Date Carlos León MD [address] [place] [address] PCP - General Family Medicine 08/25/23 Ismael Fischer MD [address] [facility] [address] EAN Ol[place]a [address] [address] Consulting Physician Obstetrics and Gynecology 06/13/22 Pascual Talley MD [address] [facility] [address] EAN [place]a [address] [address] Medical Oncologist/Technology Project Manager Hematology and Oncology 09/27/22 Kirill Huerta MD PhD [address] [place] [address] [place] [address] Radiation Oncologist Radiation Oncology 10/10/22
--- OUTSIDE RECORDS SUMMARY | 2024-12-14 00:34 | XMS_ITS | Data Portability ---
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 hyst in past. 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, then had breast CA diagnosis Not available 05/20/2023 10:42:52 07/02/2024 07/02/2024 cellophane worker exam benign no new issues good spirits Not available 07/02/2024 11:30:14 Plan of Treatment Reminders Order Date Submit Date Provider Last Modified By Organization Details Last Modified Time Details Appointments ANNUAL 30 2025 09:00A M Gil Ann MD Not available Not available Not available Lab cytology report, thin prep, smear or scraping , cervical or vaginal 2024 025 [facility], [address], [address], [place], [address], 07/09/2024 16:22:14 cytology report, thin prep, smear or scraping , cervical or vaginal 2020 021 [facility], [address], [address], [place], [address], 05/07/2021 11:09:00 fecal occult blood, stool 2019 020 [email or web address] In-Office Order, Internal Use Only DO Not Attach Compendium DO Not Attach Compendium, Do Not Delete/merge, [id number] 04/20/2020 10:18:32 Referral None recorded . Procedures None recorded . Surgeries None recorded . Imaging MAMMO, screenin g, digital, bilatera l 2021 022 [facility], [address] [facility] [place], [address], 05/16/2022 10:20:43 MAMMO, screenin g, digital, bilatera l 2020 021 [email or web address], [address] [facility] [place], [address], 05/21/2021 10:59:22 MAMMO, screenin g, digital, bilatera l 2019 020 EMIL[facility] Not available 03/07/2021 10:28:15 Medication Orders Vagifem 10 mcg vaginal tablet 2020 021 [id number], [address], [place], [id number], 05/03/2021 10:32:05 Vagifem 10 mcg vaginal tablet 2019 020 [facility][id number], [address], [place], [place], [id number], 04/20/2020 10:19:01 Patient TargetsNo targets recorded. Patient Instructions Encounter Date Encounter Id Patient Instructions Last Modified By Organization Details Last Modified Time 04/20/2020 [id number] learning about breast cancer screening Not available 04/20/2020 10:18:32 05/03/2021 [id number] learning about breast cancer screening Not available 05/03/2021 10:31:40 05/16/2022 [id number] learning about breast cancer screening Not available 05/16/2022 10:20:37 07/02/2024 [id number] A healthy lifestyle: care instructions Not available 07/02/2024 11:17:31 Reason for Referral None Reported. Results Created Date Observation Date Name Description Value Unit Range Abnormal Flag Note LastModifiedBy Organization Detail LastModifiedTime 04/20/2004/20/2020 fecal occul t blood , stool Occult Blood negati ve Not Available In-Office Order Internal Use Only DO Not Attach Compendium DO Not Attach Compendium, Do Not Delete/merge, [id number] 04/20/2020 09:59:33 05/03/20 21 05/07/2021 IGP, RFX APTIM A HPV ASCU diagnosis: Commen t NEGAT ZOHRA FOR INTRA EPITH ELIAL LESIO N OR ROGER CLEMENT . Not Available [facility] ([facility]) [address], [place], [place], [address], 05/07/2021 11:09:00 05/03/20 21 05/07/2021 IGP, RFX APTIM A HPV ASCU specimen adequacy: Commen t Satis facto ry for evalu ation . No endoc ervic al cells are prese nt. This is consi stent with a histo ry of hyste recto my. Not Available [facility] ([facility]) [address], [place], [place], [address], 05/07/2021 11:09:00 05/03/20 21 05/07/2021 IGP, RFX APTIM A HPV ASCU clinician provided ICD10: Commen t Z01.4 19 Not Available [facility] ([facility]) [address], [place], [place], [address], 05/07/2021 11:09:00 05/03/20 21 05/07/2021 IGP, RFX APTIM A HPV ASCU performed by: Ethan Viera (ASCP ) Not Available [facility] ([facility]) [address], [place], [place], [address], 05/07/2021 11:09:00 05/03/20 21 05/07/2021 IGP, RFX APTIM A HPV ASCU . . Not Available [facility] ([facility]) [address], [place], [place], [address], 05/07/2021 11:09:00 05/03/20 21 05/07/2021 IGP, RFX APTIM A HPV ASCU note: Miguel soares The Pap smear is a scree daniel test desnimisha simran to aid in the detec tion of zoey ligna nt and malig nant condi tions of the uteri ne cervi x. It is not a diagn ostic proce dure and shoul d not be used as the sole means of detec ting cervi silvano cance r. Both false -posi tive and false -nega tive repor ts do occur . Not Available [facility] ([facility]) [address], [place], [place], [address], 05/07/2021 11:09:00 05/03/2005/07/2021 IGP, RFX APTIM A HPV ASCU test methodology: Miguel soares This liqui d based ThinP rep(R ) pap test was scree simran with the use of an image guide edn mendenhall. Not Available [facility] ([facility]) [address], [place], [place], [address], 05/07/2021 11:09:00 05/03/20 21 05/07/2021 IGP, RFX APTIM A HPV ASCU . Miguel t The HPV DNA refle x crite zoraida were not met with this speci men resul t there fore, no HPV testi ng was perfo rmed. Not Available [facility] ([facility]) [address] [place], [address], 05/07/2021 11:09:00 07/02/19 25 07/09/2024 IGP, RFX APTIM A HPV ASCU diagnosis: MIGUEL T NEGAT ZOHRA FOR INTRA EPITH ELIAL LESIO N OR ROGER CLEMENT . REACT ZOHRA CELLU JANE DOYLE ES AND/O R REPAI R ARE PRESE NT. CELLU LAR DOYLE ES ASSOC IATED WITH ATROP HY AND INFLA MMATI ON ARE PRESE NT. Not Available [facility] ([facility]) [address], [place], [place], [address], 07/09/2024 16:22:14 07/02/19 25 07/09/2024 IGP, RFX APTIM A HPV ASCU specimen adequacy: MIGUEL T Satis facto ry for evalu ation . Endoc ervic al compo nent may not be disti nguis hed in cases of atrop hy. Not Available [facility] ([facility]) [address] [place], [address], 07/09/2024 16:22:14 07/02/19 25 07/09/2024 IGP, RFX APTIM A HPV ASCU clinician provided ICD10: MIGUEL Soares Z01.4 19 Not Available [facility] ([facility]) [address] [place], [address], 07/09/2024 16:22:14 07/02/19 25 07/09/2024 IGP, RFX APTIM A HPV ASCU performed by: MIGUEL varner, Cytofany soares (ASCP ) Not Available [facility] ([facility]) [address] [place], [address], 07/09/2024 16:22:14 07/02/19 25 07/09/2024 IGP, RFX APTIM A HPV ASCU electronical ly signed by: MIGUEL Randolph MD, Patho jg t Not Available [facility] ([facility]) [address] [place], [address], 07/09/2024 16:22:14 07/02/19 25 07/09/2024 IGP, RFX APTIM A HPV ASCU . . Not Available [facility] ([facility]) [address] [place], [address], 07/09/2024 16:22:14 07/02/19 25 07/09/2024 IGP, RFX [...] ts do occur . Not Available [facility] ([facility]) [address], [place], [place], [address], 07/09/2024 16:22:14 07/02/19 25 07/09/2024 IGP, RFX APTIM A HPV ASCU test methodology: MIGUEL T This liqui d based ThinP rep(R ) pap test was scree simran with the use of an image guide d syste m. Not Available [facility] ([facility]) [address] [place], [address], 07/09/2024 16:22:14 07/02/19 25 07/09/2024 IGP, RFX APTIM A HPV ASCU . COMMEN T The HPV DNA refle x crite zoraida were not met with this speci men resul t there fore, no HPV testi ng was perfo rmed. Not Available [facility] ([facility]) [address], [place], [address], 07/09/2024 16:22:14 03/07/20 21 03/07/2021 MAMMO , farida sanchez, digit al, bilat eral No observ ation record ed. [facility] [address] [place], [address], 03/07/2021 10:28:51 Result Notes None recorded. Problems Name Problem SNOMED Code Status Onset Date Resolution Date Notes Provider Name and Address Organization Details Recorded Time Menopause present 887143382 Active Gil Ann MD Attn: Ankita dread,[address], [place], [address] , [facility] 11:42:58 Problem Notes None recorded. Procedures Surgical History Date Name Laterality Status Provider Name and Address Organization Details Recorded Time 07/02/19 25 Date of Last Pap Smear completed Mikaela Boles RN [facility] 07/09/2024 16:30:59 08/15/19 23 lumpectomy of right breast completed Mikaela Bloes RN [facility] 09/30/2022 10:09:18 02/18/20 19 Most Recent Mammogram completed Mikaela Boles RN [facility] 02/18/2019 10:48:54 04/03/20 07 Hysterectomy completed Mikaela Boles RN [facility] 06/28/2014 17:10:52 09/13/19 07 Endometrial Ablation completed Mikaela Boles RN [facility] 06/28/2014 17:10:52 lumpectomy of right breast completed KENYON Warren MA - [facility] 05/20/2023 10:18:16 Imaging Results None recorded. Procedure Notes None recorded. Medical Equipment None Reported. Allergies Allergen ID Allergen Name Allergen Category Reaction Reaction Severity Criticality Documentation Date Start Date Code Code System Note Provider Name and Address Organization Details Recorded Time 28845 Product containin g penicilli n (product) medicatio n Not available Not available Not available 06/28/2014 09479 0011 SNOMED Mikaela Boles RN null, [facility] 5 17:10:52 Medications Name Sig Start Date [...] No t Available Vitals Date Recorded Body height Body mass index (BMI) Body weight Systolic And Diastolic Provider Name and Address Organization Details Last Updated DateTime 07/02/2024 163.83 cm 26.2 kg/m2 03028.96 g 133/77 mm[Hg] KENYON Warren [facility] 07/02/2024 11:11:34 Date Recorded Body weight Systolic And Diastolic Provider Name and Address Organization Details Last Updated DateTime 04/20/2020 76287.39 g 132/70 mm[Hg] Saritha Adams Mian [facility] 04/20/2020 09:57:54 Date Recorded Body weight Systolic And Diastolic Provider Name and Address Organization Details Last Updated DateTime 05/03/2021 27698.03 g 132/88 mm[Hg] KENYON Warren [facility] 05/03/2021 10:13:03 Date Recorded Body height Body mass index (BMI) Body weight Systolic And Diastolic Provider Name and Address Organization Details Last Updated DateTime 05/16/2022 163.83 cm 24.2 kg/m2 03016.71 g 122/70 mm[Hg] Saritha Adams [facility] 05/16/2022 10:17:53 Date Recorded Body height Body mass index (BMI) Body weight Systolic And Diastolic Provider Name and Address Organization Details Last Updated DateTime 05/20/2023 163.83 cm 25.2 kg/m2 99612.55 g 130/88 mm[Hg] Saritha Adams Mian [facility] 05/20/2023 10:15:55 Social History Question Answer Notes LastModified by Organizat ion Details LastModified Time Tobacco Smoking Status Never Smoker KENYON Warren [place], [place] - [facility] 04/20/2020 09:58:36 How Much Tobacco Do You Chew? None Information not available 04/20/2020 In The 14 Days Before Symptom Onset, Have You Had Close Contact With A Laboratory-confirm ed COVID-19 While That Case Was Ill? No Information n ot available 05/03/2021 In The 14 Days Before Symptom Onset, Have You Had Close Contact With A Person Who Is Under Investigation For COVID-19 While That Person Was Ill? No Information not available 05/03/2021 Have You Been To An Area Known To Be High Risk For COVID-19? No Information not available 05/03/2021 What Type Of Diet Are You Following? REGULAR Information n ot available 04/20/2020 What Was The Date Of Your Most Recent Tobacco Screening? 07/02/2024 Information not available 07/02/2024 How Many Children Do You Have? 2 Information not available 07/27/2015 What Is Your Relationship Status? Information not available 07/27/2015 How Much Tobacco Do You Smoke? No Information not available 04/20/2020 General Stress Level Low Information not available 04/20/2020 Has Tobacco Cessation Counseling Been Provided? No Information not available 05/03/2021 On What Date Was Tobacco Cessation Counseling Provided? 05/03/2021 Information not available 05/03/2021 Sex: Female Functional Status Question Answer Note LastModified by Organizat ion Details LastModified Time Do you or have you ever used any other forms of tobacco or nicotine? No Information not available 05/03/2021 Do you or have you ever used smokeless tobacco? Never used smokeless tobacco Information not available 04/20/2020 Do you or have you ever used e-cigarettes or vape? Never used electronic cigarettes Information not available 04/20/2020 What is your exercise level? None Information not available 04/20/2020 Mental Status None recorded. Family History Nothing Reported. Medical History Condition Response Breast Cancer Y Arthritis Y Gynecological History Statement/Question Response Abnormal Pap [...] SNOMED-CT Code Diagnosis ICD10 Code Diagnosis Note [id number] [facility] ([address]) [address] [place] [address] 06/30/2014 10:24:39 06/30/2014 18:42:00 Gynecologic examination 05907465 Menopause present 812727991 [id number] MD Ashlee Crespo ([place] [address]) [address] [facility] [place] [place] [address] 07/27/2015 10:52:31 07/28/2015 11:32:38 Gynecologic examination 42093512 Z01.419 Menopause present 783005 006 N95.1 Screening for malignant neoplasm of breast 076979632 Z12.39 Screening for malignant neoplasm of colon 770609094 Z12.11 [id number] MD Ashlee Crespo ([place] [address]) [address] [facility] [place] [place] [address] 08/15/2016 14:08:21 08/16/2016 09:43:54 Screening for malignant neoplasm of colon 584242449 Z12.11 Gynecologi c examination 77957177 Z01.419 Screening for malignant neoplasm of breast 105827901 Z12.39 [id number] MD Ashlee Crespo ([place] [address]) [address] [facility] [place] [place] [address] 08/27/2017 09:51:38 08/29/2017 18:42:14 Gynecologic examination 60959831 Z01.419 Body mass index 20-24 - normal 906027718 Z68.23 Screening for malignant neoplasm of colon 070838461 Z12.11 Screening for malignant neoplasm of breast 839449712 Z12.39 [id number] MD Ashlee Crespo [address] [facility] [place] [address] [place] [address] 09/03/2018 09:55:43 09/04/2018 09:12:47 Screening for malignant neoplasm of colon 920423505 Z12.11 Gynecologi c examination 70324931 Z01.419 Screening for malignant neoplasm of breast 146629116 Z12.39 Atrophic vaginitis 53594 000 N95.2 [id number] MD Ashlee Crespo [address] [place] [address] 04/20/2020 09:50:16 04/21/2020 16:06:34 Screening for malignant neoplasm of colon 479977194 Z12.11 Gynecologi c examination 99218600 Z01.419 Screening for malignant neoplasm of breast 991200512 Z12.39 Menopause present 373617 006 N95.1 [id number] MD Ashlee Crespo [address] [facility] [address] [place] [address] 05/03/2021 09:49:08 05/04/2021 09:42:09 Gynecologic examination 44548990 Z01.419 Screening for malignant neoplasm of breast 444143800 Z12.39 Menopause present 742208 006 N95.1 [id number] MD Ashlee Crespo [address] [facility] [address] [place] [address] 05/16/2022 09:51:53 05/17/2022 10:36:54 Gynecologic examination 06573378 Z01.419 Screening for malignant neoplasm of breast 656265110 Z12.39 Menopause present 556842 006 N95.1 [id number] MD Ashlee Crespo [address] OB [address] [facility] [place] [address] 05/20/2023 09:53:25 05/21/2023 09:04:51 Gynecologic examination 23305318 Z01.419 Personal h istory of primary malignant neoplasm of breast 035250583 Z85.3 [id number] MD Ashlee Crespo [address] [facility] [address] [place] [address] 07/02/2024 10:50:55 07/05/2024 11:33:15 Depression screening 244533814 Z13.31 Overweight 893731307 E66 .3 Gynecologi c examination 18427436 Z01.419 Personal h istory of primary malignant neoplasm of breast 006617382 Z85.3 Menopause present 850898 006 N95.1 Health Concerns Section Related Observation LastModified by Organization Detai ls LastModified Time None Recorded Concern Status LastModified by Organization Details LastModified Time None Recorded Advance Directives Directive None Recorded Payers Insurance Date Sequence Insurance Name Policy Number Policy Miller Covered Member ID Miller Member ID Guarantor Name 07/05/2024 2 [employer] (MEDICARE SUPPLEMENT) Carolyn Marcelino [id number] Carolyn Marcelino 07/02/2024 1 [place] Barrera Avitia Chari [id number] Carolyn Avitia Chari 05/20/2023 1 [facility] [id number] Azamtelly Adore Chari [id number] Carolyn Barb Adore Chari 06/04/2024 [place] NGS [facility] Carolyn Barb Adore Marcelino [id number] Carolyn Barb Adore Chari Notes Date Note Type Note Provider Name and Address Organization Details Recorded Time 04/20/2020 text/html Annual Sociology Teacher Post-MenopausalRep orted bypatient.Menopaus al Symptoms:no menopausal symptoms; [...] anxiety Gil Ann MD Attn: [address] [place], [address], [facility] 04/20/2020 10:19:07 05/03/2021 text/html Annual Sociology Teacher Post-MenopausalRep orted bypatient.Menopaus al Symptoms:no menopausal symptoms; [...] anxiety Gil Ann MD Attn: [address] [place], [address], [facility] 05/03/2021 10:32:22 05/16/2022 text/html Annual Sociology Teacher Post-MenopausalRep orted bypatient.Menopaus al Symptoms:no menopausal symptoms; [...] in Gil Ann MD Attn: [address] [place], [address], [place] - [facility] 05/16/2022 10:30:55 05/20/2023 text/html Annual Sociology Teacher Post-MenopausalRep orted bypatient.Menopaus al Symptoms:no menopausal symptoms; [...] 2006 after failed ablation Breast cancer lumpectomies lassic nurse type saga of failed biopsies / mammograms for her at [facility] Gil Ann MD Attn: [address] [place], [address], [place] [facility] 05/20/2023 10:43:18 07/02/2024 text/html Annual Sociology Teacher Post-MenopausalRep orted bypatient.Menopaus al Symptoms:no menopausal symptoms; [...] 2006 after failed ablation Breast cancer lumpectomies lassic nurse type saga of failed biopsies / mammograms for her at [facility] all follow ups have been good so fartotally retired now Gil Ann MD Attn: [address] [place], [address], [place] - [facility] 07/02/2024 11:30:28 OBGyn Episode No OBEpisode recorded.
--- OUTSIDE RECORDS SUMMARY | 2024-12-14 00:34 | XMS_ITS | Encounter Summary ---
Author Organization [facility] Healthcare Address [address] [place] [address] Care Team Providers Care Executor Of Estate Name Role Phone Margarita Pedraza MD Primary Care Provide r Ismael Fischer MD Unavailable + [phone] Pascual Talley MD Unavailable +[phone] Kirill Huerta MD PhD Unavailable + [phone] Aft, Yazmin Acosta MD PhD Unavailable [phone] Carlos León MD Primary Care Provider [phone] Encounter Details Date Type Department Care Team (Late st Contact Info) Description 11/13/2022 Telephone [facility] [address] [place] [address] Maryann Tenorio, RT Social History Tobacco Use [...] on file Legal Sex Female 11:56 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 Gender Identity Female 06/11/2021 7:33 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 Sexual Orientation Not on file documented as of this encounter Plan of Treatment Not on file documented as of this encounter Visit Diagnoses Not on filedocumented in this encounter Care Teams Executor Of Estate Relationship Specialty Start Date End Date Margarita Pedraza MD [facility] [address] [address] PCP - General Family Medicine 11/01/21 08/24/23 Carlos León MD [address] [facility] [place] [address] PCP - General Family Medicine 08/25/23 Ismael Fischer MD [address] [place] [address] DR EAN Ol[address]a [address] [address] Consulting Physician Obstetrics and Gynecology 06/13/22 Pascual Talley MD [address] [facility] [address] [address] Medical Oncologist/Timber Supervisor Hematology and Oncology 09/27/22 Kirill Huerta MD PhD [address] [facility] [place] [address] Radiation Oncologist Radiation Oncology 10/10/22 Yazmin Glez MD PhD [address] [place] [address] Surgeon Surgical Oncology 10/10/22 06/28/24 documented as of this encounter
--- NOTE | 2024-12-14 09:22 | WPDHPUPDATE1 ---
History and Physical Update Update Date/Time: 12/14/24 09:22 History and Physical has been reviewed, including an updated exam of the patient. There are NO changes in the patient's condition. Risks, benefits, and alternatives have been discussed and questions answered. Patient agrees to proceed with procedure.
[2024-12-14] MEDS: ACETAMINOPHEN 500 MG TABLET 1000 MG PO (09:37)
[2024-12-14] MEDS: KETOROLAC 15 MG/ML VIAL (*BKC) IV PUSH (09:38)
[2024-12-14] MEDS: ceFAZolin 2 GM in SODIUM CHLORIDE 0.9% IV 50 ML 100 ML IVPB (10:07)
[2024-12-14] MEDS: BUPIVACAINE/EPINEPHRINE 0.5% 50 ML VIAL 20 ML INFILTRATE (10:31)
[2024-12-14] MEDS: LACTATED RINGERS 1,000 ML 30 ML IV CONT (10:57)
--- NOTE | 2024-12-14 11:33 | W.PM.PROC2 ---
Procedure Note - Detailed Date of Procedure 12/14/24 Pre-op Diagnosis Left Knee Medial Meniscus Tear Post-op Diagnosis Same Procedure Performed Arthroscopic partial medial meniscectomy, left knee. Surgeon Zach Freeman MD Anesthesia General Findings Complex medial tear. Medial femur chondromalacia grade 2, medial tibia grade 2. Lateral femur chondromalacia grade 0, lateral tibia grade 0. Patellar grade 2, trochlea grade 3. Description of Procedure The patient was identified and the surgical site confirmed and signed in the preoperative holding area. Antibiotics were started per protocol, and the patient was brought to the operative room and transferred to the OR table. A general anesthetic was administered. Supine position with the operative lower extremity position in the leg rocha after placement of a well padded tourniquet. The leg support was lowered and the contralateral limb was supported with a soft bolster. The knee was prepped and draped in the usual sterile fashion. A time-out was performed. The portal sites were marked and infiltrated with 0.5% Marcaine 20 mL. The limb was exsanguinated and the tourniquet inflated to 300 mL Hg. Standard inferolateral and inferomedial portals were established. Inflow was obtained with the saline pump. The camera was introduced. Diagnostic inspection of the joint was accomplished. The meniscus was debrided with the arthroscopic shaver and punches until stable. The arthroscopic instruments were removed. The tourniquet released and wounds closed with subcutaneous 4-0 Monocryl absorbable suture. Steri strips and a sterile dressing were applied. A light elastic wrap was placed. The patient was extubated and brought to the recovery room in stable condition. Estimated Blood Loss 5 Drains No Complications No immediate complications Condition Stable Disposition PACU [facility] Billing Surgery - Charge Forward: Surgery Billing
== END 2024-12-14 12:40 | disposition home or self-care (01) ==
PROVIDERS: PCP Family Medicine; Visit Provider Orthopaedic Surgery
PROC: (CPT 29870; principal; 2024-12-14 10:30)
DX: M23.332 Other meniscus derangements, other medial meniscus, left knee (principal); M94.262 Chondromalacia, left knee
CPT/HCPCS: 29881; J0690; A9270; J1100; J1885; J2405; J2704; J3010; J7120

== ENCOUNTER 2025-01-25 08:00 | Outpatient (RCR) | payer MEDICARE, OTHER, SELFPAY ==
--- NOTE | 2024-12-20 10:57 | OPREHPOC ---
Outpatient Therapy Plan of Care This is a Multidisciplinary Plan of Care that may contain components documented by all disciplines (PT, OT, and ST.) PT Problem 1 PT Problem #1 Knowledge Deficit PT Goal 1 Goal / Goal Update *independent with HEP Target Visit 8 PT Problem 2 PT Problem #2 Pain PT Goal 1 Goal / Goal Update 1* pt report pain at worst of 3/10 2* pt report sleeping without awakening due to knee pain 3* pt report standing/walking tolerance- activity of 3 hours Target Visit 8 PT Problem 3 PT Problem #3 Impaired Range of Motion PT Goal 1 Goal / Goal Update * L knee active extension in sitting of 0'; to improve gait pattern Target Visit 8 PT Problem 4 PT Problem #4 Impaired Strength PT Goal 1 Goal / Goal Update 1* pt ambulate with L knee in full extension/0' with stance phase 2* descending stairs with alternate step pattern, good speed and no hesitation on L Target Visit 8 PT Problem 5 PT Problem #5 Impaired Functional Mobility PT Goal 1 Goal / Goal Update * 2 minute walking test distance of 500', to improve community outings Target Visit 8
--- NOTE | 2024-12-20 10:57 | PTOPEVAL1 ---
Assessment and note entered by Analia Merritt, PT Evaluation Information Assessment Status Evaluation ICD-10 Condition Codes (PT) Pain in left knee M25.562,Encounter for other orthopedic aftercare Z47.89 Onset 12-14-24 Subjective Information 12-14-24 had L partial medial menisectomy; gradual increase in knee pain, no trauma. 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 Since surgery, she has been resting and icing at home. 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 LE functional scale rating of 36% limitation in activity level. With the evaluation: L knee active ROM in sitting (-5') to 120' and passive extension (-3'); decreased strength of L knee with lacking full extension in stance phase; 2 minute walking test distance of 425' and 4 steps without hand railing and alternate step pattern. Skilled PT services are indicated for modalities PRN for pain and edema, therapeutic exercises to increase knee ROM and strength with education for HEP and gait/balance retraining. Plan of Care Interventions Electrical Stimulation,Gait Training,Hot Pack/Cold Pack,Intermittent Compression Pump,Manual Therapy ,Neuro Re-education,Patient/Caregiver Education, Therapeutic Activities,Therapeutic Exercise,Other Other Interventions taping PT Services Indicated Yes Treatment Frequency and 1-2x/wk for 8 visits Duration These treatments will address the objective and functional deficits as defined above. The patient will be advanced safely and appropriately in order for the patient to progress towards his/her prior level of function. Additional exercises will be introduced and as well as a comprehensive home exercise program upon discharge, if needed, ?to ensure carryover of functional gains achieved in the clinic. This treatment plan has been reviewed and agreement upon by the patient.
--- NOTE | 2025-01-25 08:48 | OPREHPOC ---
Outpatient Therapy Plan of Care This is a Multidisciplinary Plan of Care that may contain components documented by all disciplines (PT, OT, and ST.) PT Problem 1 PT Problem #1 Knowledge Deficit PT Goal 1 Goal / Goal Update *independent with HEP --------- 01-25-25 d/c goal met Target Visit 8 Progress Met PT Problem 2 PT Problem #2 Pain PT Goal 1 Goal / Goal Update 1* pt report pain at worst of 3/10 2* pt report sleeping without awakening due to knee pain 3* pt report standing/walking tolerance- activity of 3 hours --------- 01-25-25 d/c goals met Target Visit 8 Progress Met PT Problem 3 PT Problem #3 Impaired Range of Motion PT Goal 1 Goal / Goal Update * L knee active extension in sitting of 0'; to improve gait pattern --------- 01-25-25 d/c goal met Target Visit 8 Progress Met PT Problem 4 PT Problem #4 Impaired Strength PT Goal 1 Goal / Goal Update 1* pt ambulate with L knee in full extension/0' with stance phase 2* descending stairs with alternate step pattern, good speed and no hesitation on L --------- 01-25-25 d/c goals met Target Visit 8 Progress Met PT Problem 5 PT Problem #5 Impaired Functional Mobility PT Goal 1 Goal / Goal Update * 2 minute walking test distance of 500', to improve community outings --------- 01-25-25 d/c goal met Target Visit 8 Progress Met
--- NOTE | 2025-01-25 08:48 | PTOPDC ---
Assessment and note entered by Analia Merritt, PT Assessment Status Discharge ICD-10 Condition Codes (PT) Pain in left knee M25.562,Encounter for other orthopedic aftercare Z47.89 Onset 12-14-24 Subjective Information knee is doing better- stairs are normal, doing all the exercises; still have some pain when over do it and do too much--like yard work; see the dr next week; Reported Pain Level Pain Score 0: Self Report Additional Pain Score Comments pain range in the past week 0-3/10; sleeping is OK; reported walking/standing tolerance of 4 hours or more; Assessment PT Clinical Summary Barrera has received 8 PT sessions. With the reassessment: she has improved in all areas: pain rating 0-3/10; self assessment with LE functional scale rating of 15% limitation in activity level; active L knee ROM is 0-120' with slight tightness with extension; reported activity tolerance with standing/walking of 4 hours; 2 minute walking test distance of 500'; slight decrease weight shift onto L LE with fatigue; alternating step pattern on 12 steps without a hand railing; increase strength of L LE; education completed for HEP. The goals were achieved. Discharge PT services. She is to continue with her HEP and progression of activity as tolerated. Plan of Care PT Services Indicated No
== END 2025-01-25 09:42 | disposition home or self-care (01) ==
LOC: ANHPT 08:00
PROVIDERS: PCP Family Medicine; Visit Provider Orthopaedic Surgery
DX: Z48.89 Encounter for other specified surgical aftercare (principal)
CPT/HCPCS: 97110; 97116; 97161; 97530